=== PATIENT | male | born 1945 | race Caucasian/White ===

== ENCOUNTER 2023-08-23 09:00 | Emergency (ER) | payer MEDICARE, BC, SELFPAY ==
[2023-08-23 09:02] VITALS: BP 134/77
--- NOTE | 2023-08-23 09:24 | ED.GENMED ---
History of Present Illness
General
Chief Complaint: Musculo-Skeletal Complaint
Time Seen by Provider: 08/23/23 09:24
Travel History
Have you had any contact with someone who has COVID-19?: No
Do you have any symptoms of coronavirus? Fever > 100 degrees, chills, cough, shortness of breath, sore throat, loss of taste or smell, muscle aches, or headache?: No
History of Present Illness
History of Present Illness:
HPI: Patient presents with concerns for pain at the back of the left ankle. There was no trauma. He is very concerned because he had a severe infection a few years ago with similar initial presentation. He has had no fevers.
EXAM:
GENERAL: Well appearing in no distress
HEENT: Moist oral mucosa
CARDIOVASCULAR: No murmurs, normal heart rate, regular rhythm, No chest wall tenderness
PULMONARY: No respiratory distress, breath sounds are clear and equal
ABDOMEN: Soft with no peritoneal signs, no tenderness
NEUROLOGIC: Excellent strength all extremities, no coordination deficits
PSYCHIATRIC: Appropriate mental status, normal insight and judgement
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
SKIN: As above
TIME OF INITIAL ENCOUNTER: 9:30 AM
NUMBER AND COMPLEXITY OF PROBLEMS ADDRESSED AT THE ENCOUNTER
� Chronic conditions affecting care: CHF, CAD, high blood pressure, hyperlipidemia, brain tumor
� Acute Exacerbation and/or Progression of Chronic Illness:
� Differential Diagnosis includes: DVT, cellulitis, musculoskeletal ankle pain
AMOUNT AND/OR COMPLEXITY OF DATA TO BE REVIEWED AND ANALYZED
� I performed an independent evaluation of and my interpretation is:
EKG:
CT:
X-rays:
Laboratory Studies: White count 7.1, hemoglobin 16.0, creatinine 1.5
Other: Ultrasound imaging shows no evidence of DVT to the left lower extremity
� Review of other/old records: Last creatinine was 1.3
� Clinical information was obtained by an independent historian:
� Prescriptions/Medications Considered but not given:
� Further testing considered but not performed:
RISK OF COMPLICATIONS AND/OR MORBIDITY OR MORTALITY OF PATIENT MANAGEMENT
� Social determinants of health affecting care: Lives at home
� Discussion with other providers: None needed
� Escalation of care including admission/observation vs risk of discharge considered: Ultrasound imaging negative for DVT. I see no clear evidence for cellulitis and white count is normal. However he did have a concerning
infection in the past will place on antibiotics.
Past History
Past History
ED Past Medical History: CAD, CHF, GERD, HTN and Hypercholesterolemia
ED Past Surgical History: Orthopedic and Other (DEBI)
Social History
Tobacco: Non-smoker
Alcohol: None
Drug: None
Personal:
Living: with family
Employment: Employed
Phy Exam
Physical Exam
Physical Exam:
See HPI
Course
Orders/Labs/Results
Orders:
Orders
08/23/23 09:30
US Legs, Left [US Periph Venous LOWER Ext LT] Urgent
Comment:
Reason For Exam: swelling eval for dvt
08/23/23 10:24
Basic Metabolic Panel Urgent
Complete Blood Count/With Diff Urgent
08/23/23 11:27
Doxycycline [Vibramycin] 100 mg PO NOW STA
Abnormal Lab Results
08/23/23
10:24
MCV 97.4 H fL
(80.0-94.0)
MCH 31.4 H pg
(27.0-31.0)
MCHC 32.3 L g/dL
(33.0-37.0)
MPV 10.5 H fL
(7.4-10.4)
Absolute Lymphs (auto) 0.9 L 10^3/uL
(1.2-3.4)
Absolute Monos (auto) 0.7 H 10^3/uL
(0.1-0.6)
Lymphocytes % 13.2 L %
(20.5-51.1)
Monocytes % 9.6 H %
(1.7-9.3)
Carbon Dioxide 31 H mmol/L
(22-30)
BUN 30 H mg/dl
(9-20)
Creatinine 1.5 H mg/dL
(0.7-1.3)
08/23/23 10:24
08/23/23 10:24
Vital Signs
Initial and Last Documented VS:
Initial Vital Signs
Temp Pulse Resp BP Pulse Ox
97.8 F 60 20 134/77 98
08/23/23 09:02 08/23/23 09:02 08/23/23 09:02 08/23/23 09:02 08/23/23 09:02
Last Documented Vital Signs
Temp Pulse Resp BP Pulse Ox
97.8 F 60 20 134/77 98
08/23/23 09:02 08/23/23 09:02 08/23/23 09:02 08/23/23 09:02 08/23/23 09:02
*Critical Care Note
Total Time (30-74mins, 75-104mins- exclusive of procedures): Not Applicable
ED Attending Note
-
Portions of this chart may have been created with voice recognition software.� Occasional wrong word or��sound alike� substitutions may have occurred due to the inherent limitations of voice recognition software.
Discharge Plan
Departure
Patient Disposition: Home (Routine Discharge)
Date of Disposition: 08/23/23
Time of Disposition: 11:25
Patient with high blood pressure during this ER visit?: Yes
Discharge Problem:
Edema
Instructions: Swelling
Prescriptions:
New
doxycycline hyclate 100 mg capsule
100 mg PO BID 7 Days Qty: 14 0RF
No Action
furosemide 40 MG tablet
40 mg PO DAILY@1800
lisinopril 20 MG tablet
40 mg PO DAILY@1800
aspirin 81 MG tablet,delayed release (DR/EC)
81 mg PO DAILY@1800
carvedilol 3.125 MG tablet
3.125 mg PO BID
quinine sulfate 324 MG capsule
324 mg PO DAILY@1800
fish oil-dha-epa 1 EACH capsule
1 ea PO DAILY@1800
cholecalciferol (vitamin D3) 2,000 UNITS tablet
2,000 units PO DAILY@1800
esomeprazole magnesium [Nexium 24HR] 20 MG tablet,delayed release (DR/EC)
20 mg PO DAILY
vit C,U-Pa-lpkcl-lutein-zeaxan [PreserVision AREDS-2] 1 EACH capsule
2 ea PO DAILY@1800
oxycodone 5 MG tablet
15 mg PO .DAILY AT 2000
testosterone 30 MG/1.5 ML solution in metered pump w/oneil
1 applic topical DAILY
Patient Comments:
ON HOLD
L.acidoph, paracasei,B. lactis 1 EACH capsule
1 ea PO BID
calcium citrate 200 MG tablet
200 mg PO DAILY@1800
Patient Comments:
04/23/19 on hold while taking doxycyline/vanco
vancomycin 1,000 MG/20 ML recon soln
1,500 mg IV Q24H
Referrals:
Micah Bennett MD [Family Provider] -
Activity Restrictions/Additional Instructions:
Ultrasound shows no sign of DVT. White count is normal. Follow-up your primary care doctor as well as Dr. Hayes.
Interventions
Interventions:
*Risk Screen - Suicide Last Done: 08/23/23 10:21
*General Assessment Last Done: 08/23/23 10:21
*Neglect/Abuse Screening Last Done: 08/23/23 10:21
*ED COVID-19 Vaccine History Last Done: 08/23/23 09:05
ED-Musculoskeletal Assessment Last Done: 08/23/23 10:21
Discharge Date and Time
Print Language: GIBRALTARIAN
[2023-08-23 10:30] LABS: % Basophils 0.7 % (0-2); % Eosinophils 4.1 % (0-6); % Immature Granulocytes 0.3 % (0-0.5); % Lymphocytes 13.2 % (20.5-51.1); % Monocytes 9.6 % (1.7-9.3); % Neutrophils 72.1 % (42.2-75.2); Absolute Basophils 0.1 10^3/uL (0-0.2); Absolute Eosinophils 0.3 10^3/uL (0-0.7); Absolute Lymphocytes 0.9 10^3/uL (1.2-3.4); Absolute Monocytes 0.7 10^3/uL (0.1-0.6); Absolute Neutrophils 5.1 10^3/uL (1.4-6.5); Hematocrit 49.6 % (39.0-52.0); Mean Corp Hgb Conc. 32.3 g/dL (33.0-37.0); Mean Corpuscular Hgb 31.4 pg (27.0-31.0); Mean Corpuscular Volume 97.4 fL (80.0-94.0); Mean Platelet Volume 10.5 fL (7.4-10.4); Nucleated Red Blood Cells % 0 % (-); Platelet Count 191 10^3/uL (130-400); Red Blood Cell Count 5.09 10^6/uL (4.70-6.10); Red Cell Dist. Width 13.1 % (11.5-14.5); White Blood Cell Count 7.1 10^3/uL (4.8-10.8)
[2023-08-23 10:42] LABS: Blood Urea Nitrogen 30 mg/dl (9-20); Calcium 9.6 mg/dl (8.4-10.2); Carbon Dioxide 31 mmol/L (22-30); Chloride 100 mmol/L (98-107); Glucose 97 mg/dl (70-99); Potassium 5.1 mmol/L (3.5-5.1); Sodium 136 mmol/L (135-145); eGFR 47.06
[2023-08-23] MEDS: VIBRAMYCIN 100 MG PO (12:07)
[2023-08-23 12:08] VITALS: BP 133/69
== END 2023-08-23 12:16 | disposition home or self-care (01) ==
LOC: EMR 09:00
PROVIDERS: EMERGENCY PHYSICIAN Emergency Medicine; FAMILY PHYSICIAN Internal Medicine
DX: R60.0 Localized edema (principal); I11.0 Hypertensive heart disease with heart failure; I50.9 Heart failure, unspecified; E78.00 Pure hypercholesterolemia, unspecified
CPT/HCPCS: 99284; 80048; 85025; 93971

== ENCOUNTER → 2023-08-27 14:38 | Outpatient (REF) | payer MEDICARE, BC, SELFPAY | LOC: HWRAD 14:38 | PROVIDERS: ATTENDING PHYSICIAN Podiatrist Foot & Ankle Surgery; FAMILY PHYSICIAN Internal Medicine | DX: L97.523 Non-pressure chronic ulcer of other part of left foot with necrosis of muscle (principal) | CPT/HCPCS: 73630 ==

== ENCOUNTER → 2023-09-02 14:07 | Outpatient (REF) | payer MEDICARE, BC, SELFPAY | LOC: RAD 14:07 | PROVIDERS: ATTENDING PHYSICIAN Podiatrist Foot & Ankle Surgery; FAMILY PHYSICIAN Internal Medicine | DX: I89.0 Lymphedema, not elsewhere classified (principal); L97.523 Non-pressure chronic ulcer of other part of left foot with necrosis of muscle | CPT/HCPCS: 93922; 93925 ==

== ENCOUNTER 2023-10-08 18:27 | Inpatient (IN) | payer MEDICARE, BC, SELFPAY ==
[2023-10-08 15:26] VITALS: BP 126/66
--- NOTE | 2023-10-08 15:57 | ED.GENMED ---
History of Present Illness
General
Chief Complaint: Skin Problem
Source: patient
Exam Limitations: none
Time Seen by Provider: 10/08/23 15:47
History of Present Illness
History of Present Illness:
See MDM
Past History
Past History
ED Past Medical History: CAD, CHF, GERD, HTN and Hypercholesterolemia
ED Past Surgical History: Orthopedic and Other ([facility]BI)
Social History
Tobacco: Non-smoker
Alcohol: None
Drug: None
Personal:
Living: with family
Employment: Employed
Phy Exam
Physical Exam
Physical Exam:
See MDM
Course
Orders/Labs/Results
Orders:
Orders
10/08/23 15:56
Aztreonam [Azactam] 2,000 mg IV NOW STA
10/08/23 16:15
Complete Blood Count/With Diff Urgent
Comprehensive Metabolic Panel Urgent
Blood Culture Urgent
CARLY Source: Blood/Venous
Specimen Description:
10/08/23 16:43
Vancomycin [Vancocin] 2,000 mg 0.9% Sodium Chloride 500 ml [Nss] 500 ml IV NOW
Abnormal Lab Results
10/08/23
16:15
RBC 4.49 L 10^6/uL
(4.70-6.10)
Abs Immat Gran (auto) 0.1 H 10^3/uL
(0-0.05)
Absolute Neuts (auto) 6.6 H 10^3/uL
(1.4-6.5)
Absolute Monos (auto) 0.8 H 10^3/uL
(0.1-0.6)
Immature Gran % 0.7 H %
(0-0.5)
Lymphocytes % 12.7 L %
(20.5-51.1)
Sodium 133 L mmol/L
(135-145)
Carbon Dioxide 20 L mmol/L
(22-30)
BUN 45 H mg/dl
(9-20)
Creatinine 2.2 H mg/dL
(0.7-1.3)
10/08/23 16:15
10/08/23 16:15
Vital Signs
Initial and Last Documented VS:
Initial Vital Signs
Temp Pulse Resp BP Pulse Ox
98.3 F 68 20 126/66 66
10/08/23 15:26 10/08/23 15:26 10/08/23 15:26 10/08/23 15:26 10/08/23 15:26
Last Documented Vital Signs
Temp Pulse Resp BP Pulse Ox
98.3 F 68 20 126/66 66
10/08/23 15:26 10/08/23 15:26 10/08/23 15:26 10/08/23 15:26 10/08/23 15:26
MDM/Problems Addressed
Differential Diagnosis Includes:
HPI and MDM Narrative:
78-year-old male presenting with concern for osteolysis of his left foot. Due to chronic deformity of his foot, the medial aspect of his left MTP rubs against his shoes. He developed an ulcer and has been on Bactrim for 5 weeks. His hardboard supervisor
ordered an outpatient MRI. Patient was sent in because the MRI showed concern for osteomyelitis. He was sent in for IV antibiotics. He denies any pain. Given the concern of osteomyelitis and his penicillin allergy, will start vancomycin and
aztreonam
Physical exam
General: Well appearing and non-toxic
HEENT: protecting airway
Neck: appears supple
CV: No evidence of cyanosis
Resp: No accessory muscle use
Abd: Non-distended
Extremities: Ulceration to left medial MTP.
Neuro: alert
Psych: Normal affect
Skin: Intact
Problems Addressed including Acute and Chronic Conditions affecting care:
1. Left great toe osteomyelitis
Acuity: acute
Prognosis: unstable
Details: Given the MRI reading and the failure of outpatient antibiotics, will start vancomycin and aztreonam given his penicillin allergy
Differential Diagnosis (but not limited to): Ulceration, osteomyelitis, cellulitis
Testing considered: X-ray but patient states he already had an MRI
Drug therapy (if applicable): OTC meds, please see d/c instruction regarding Rx drugs
Amount and/or Complexity of Data Reviewed
Clinical info obtained from: Patient
External data reviewed: N/A
Labs I independently reviewed (but not limited to): WBC, Cr
Radiology: N/A
Pulse Ox: not hypoxic
EKG independently reviewed: N/A
Cabinet Builder: N/A
Critical Care: N/A
Risk of Complication:
Social Determinants of health: Good social support
Discussed with other providers: Hospitalist
Escalation of Care includes Admit/Obs: Given the concern for osteomyelitis and failing outpatient therapy, will admit for IV antibiotics
Occasional wrong word or 'sound a like' substitutions may have occurred due to the inherent limitations of voice recognition software. Read the chart carefully and recognize, using context, where substitutions have occurred.
*Critical Care Note
Total Time (30-74mins, 75-104mins- exclusive of procedures): Not Applicable
ED Attending Note
-
Portions of this chart may have been created with voice recognition software.� Occasional wrong word or��sound alike� substitutions may have occurred due to the inherent limitations of voice recognition software.
Discharge Plan
Departure
Patient Disposition: Admit
Date of Disposition: 10/08/23
Time of Disposition: 17:09
Admit to: Med/Surg
Presentation/result/management discussed w/ accepting MD/DO: Hospitalist
Discharge Problem:
Osteomyelitis
Prescriptions:
No Action
furosemide 40 MG tablet
20 mg PO QPM
lisinopril 20 MG tablet
40 mg PO QPM
aspirin 81 MG tablet,delayed release (DR/EC)
81 mg PO QPM
carvedilol 3.125 MG tablet
3.125 mg PO BID
quinine sulfate 324 MG capsule
324 mg PO QPM
fish oil-dha-epa 1 EACH capsule
1 ea PO QPM
esomeprazole magnesium [Nexium 24HR] 20 MG tablet,delayed release (DR/EC)
20 mg PO DAILY
PreserVision AREDS-2 1 EACH capsule
2 ea PO QPM
oxycodone 5 MG tablet
5 mg PO BIDPRN PRN (Reason: moderate pain)
Patient Comments:
10/08/2023: last filled 10/06/21, 90 tabs for 30 days from [facility]
testosterone 30 MG/1.5 ML solution in metered pump w/oneil
1 applic topical QPM
Patient Comments:
ON HOLD
L.acidoph, paracasei,B. lactis 1 EACH capsule
1 ea PO QPM
calcium citrate 200 MG tablet
200 mg PO QPM
Patient Comments:
sulfamethoxazole-trimethoprim 800-160 mg tablet
1 tab PO BID
spironolactone 25 mg tablet
12.5 mg PO QPM
cholecalciferol (vitamin D3) 50 mcg (2,000 unit) Tablet
50 mcg PO QPM
Jardiance 10 mg tablet
10 mg PO QPM
Referrals:
NONE,* [Family Provider] -
Interventions
Interventions:
*Risk Screen - Suicide Last Done: 10/08/23 15:26
*General Assessment Last Done: 10/08/23 15:26
*Neglect/Abuse Screening Last Done: 10/08/23 15:26
ED-Skin Assessment Last Done: 10/08/23 16:21
Discharge Date and Time
Print Language: KAZAKH
[2023-10-08] MEDS: AZACTAM 2000 MG IV (16:15)
[2023-10-08 16:19] VITALS: BMI 29.2
[2023-10-08 16:32] LABS: % Basophils 0.8 % (0-2); % Eosinophils 4.2 % (0-6); % Immature Granulocytes 0.7 % (0-0.5); % Lymphocytes 12.7 % (20.5-51.1); % Monocytes 8.8 % (1.7-9.3); % Neutrophils 72.8 % (42.2-75.2); Absolute Basophils 0.1 10^3/uL (0-0.2); Absolute Eosinophils 0.4 10^3/uL (0-0.7); Absolute Immature Granulocytes 0.1 10^3/uL (0-0.05); Absolute Lymphocytes 1.2 10^3/uL (1.2-3.4); Absolute Monocytes 0.8 10^3/uL (0.1-0.6); Absolute Neutrophils 6.6 10^3/uL (1.4-6.5); Hemoglobin 13.9 g/dL (13.0-18.0); Mean Corp Hgb Conc. 34.8 g/dL (33.0-37.0); Mean Corpuscular Volume 89.1 fL (80.0-94.0); Mean Platelet Volume 9.8 fL (7.4-10.4); Nucleated Red Blood Cells % 0 % (-); Platelet Count 282 10^3/uL (130-400); Red Blood Cell Count 4.49 10^6/uL (4.70-6.10); Red Cell Dist. Width 13.4 % (11.5-14.5); White Blood Cell Count 9.1 10^3/uL (4.8-10.8)
[2023-10-08 17:05] LABS: ALT (SGPT) 26 U/L (0-50); AST (SGOT) 29 U/L (17-59); Alkaline Phosphatase 99 U/L (38-126); Blood Urea Nitrogen 45 mg/dl (9-20); Calcium 9.7 mg/dl (8.4-10.2); Carbon Dioxide 20 mmol/L (22-30); Chloride 102 mmol/L (98-107); Estimated Creatinine Clearance 27 ml/min; Glucose 98 mg/dl (70-99); Sodium 133 mmol/L (135-145); Total Bilirubin 0.3 mg/dl (0.2-1.3); Total Protein 6.5 g/dl (6.3-8.2); eGFR 29.72
[2023-10-08] MEDS: VANCOCIN 540 MG IV (17:05)
[2023-10-08 17:13] LABS: Potassium 5.3 mmol/L (3.5-5.1)
--- NOTE | 2023-10-08 18:20 | HPS.HSE ---
Addendum entered and electronically signed by Joe Hernandez MD 10/08/23 20:34:
NPO past midnight for potential debridement tomorrow per podiatry.
Original Note:
Family Physician
-
Family Physician: Micah Bennett
Chief Complaint
-
left foot osteomyelitis
History of Present Illness
78-year-old male past medical history of coronary artery disease, CHF, hypertension, hyperlipidemia, GERD, presenting with osteomyelitis of left foot. Due to chronic deformity of his foot, the medial aspect of his left MTP rubs against shoe and he
developed an ulcer approximately 5 weeks ago and has been on Bactrim for 5 weeks. Also has been draining some liquid. He denies any fevers or chills. His reservations specialist ordered outpatient MRI which showed osteomyelitis and he was sent in for IV
antibiotics. He denies any pain.
Patient also had a injury when his left toe got caught in carpet resulting in injury of his foot. He was found to have complete tear of left Achilles tendon on recent MRI, and nonoperative management was recommended by podiatry due to osteomyelitis
and vascular insufficiency.
He was told 7 years ago that he had vascular insufficiency in his left lower extremity.
He drinks 1 drink of alcohol daily. He denies smoking.
Medical History
Past Medical History
Past Medical History: Reports Other (coronary artery disease, CHF, hypertension, hyperlipidemia, GERD)
Past Surgical History: Reports Orthopedic
Social History
Tobacco: Non-smoker
Alcohol: Daily
Drug: None
Family History
Family History: Not pertinent
Allergies / Home Medications
Allergies reflects when Allergies were last updated in [facility].
Home Medications with original date entered in [facility]
Allergy/Medication List:
Allergies
Allergy/AdvReac Type Severity Reaction Status Date / Time
morphine Allergy Unknown Verified 10/08/23 15:30
Penicillins Allergy Hives Verified 10/08/23 15:30
medicated honey Allergy Rash Uncoded 10/08/23 15:30
Home Medications
aspirin 81 mg tablet,delayed release 81 mg PO QPM Blood clot prevention/tx 04/18/19
carvedilol 3.125 mg tablet 3.125 mg PO BID Heart disease 04/18/19
esomeprazole magnesium 20 mg tablet,delayed release (Nexium 24HR) 20 mg PO DAILY Gastrointestinal issue 04/18/19
fish oil-dha-epa 1,200 mg-144 mg-216 mg capsule 1 ea PO QPM Supplement 04/18/19
furosemide 40 mg tablet 20 mg PO QPM Fluid retention/Swelling 04/18/19
lisinopril 20 mg tablet 40 mg PO QPM Heart disease 04/18/19
quinine sulfate 324 mg capsule 324 mg PO QPM cramps 04/18/19
vit C 250 mg-vit E 90 mg-zinc 40 mg-copper 1 zx-zkfsly-eggurc capsule (PreserVision AREDS-2) 2 ea PO QPM Supplement 04/18/19
L.acidoph, paracasei,B. lactis 10 billion cell capsule 1 ea PO QPM Gastrointestinal issue 04/23/19
calcium citrate 200 mg (950 mg) tablet 200 mg PO QPM Supplement 04/23/19
oxycodone 5 mg tablet 5 mg PO BIDPRN PRN moderate pain 04/23/19
testosterone 30 mg/actuation (1.5 mL) transderm solution metered pump 1 applic topical QPM hormone replacement 04/23/19
cholecalciferol (vitamin D3) 50 mcg (2,000 unit) tablet 50 mcg PO QPM 10/08/23
empagliflozin 10 mg tablet (Jardiance) 10 mg PO QPM 10/08/23
spironolactone 25 mg tablet 12.5 mg PO QPM 10/08/23
sulfamethoxazole 800 mg-trimethoprim 160 mg tablet 1 tab PO BID 10/08/23
Review of Systems
-
History Source: Patient
A 12 point ROS was completed and negative except as noted: Yes
Constitutional: Reports No Symptoms
EENT: Reports No Symptoms
Respiratory: Reports No Symptoms
Cardiac: Reports No Symptoms
Abdomen/GI: Reports No Symptoms
: Reports No Symptoms
Musculoskeletal: Reports See HPI
Skin: Reports No Symptoms
Neurological: Reports No Symptoms
Endocrine: Reports No Symptoms
Hematologic/Lymphatic: Reports No Symptoms
Psych: Reports No Symptoms
Physical Exam
Vital Signs
Vital Signs
Temp Pulse Resp BP Pulse Ox
98.3 F 68 20 126/66 66
10/08/23 15:26 10/08/23 15:26 10/08/23 15:26 10/08/23 15:26 10/08/23 15:26
Physical Exam
General: Well Developed, Well Nourished and No Apparent Distress
HEENT: NormoCephalic, Moist mucous membranes and Atraumatic
Respiratory: Clear
Cardiac: S1/S2 and Regular Rhythm; No Murmur or Rub
GI: Soft, Non Tender, Non Distended and Normal Bowel Sounds; No Organomegaly
Rectal: Deferred by Provider
Musculoskeletal: No Clubbing, No Cyanosis and No Edema
Skin: Other (left first MTP varus deformity with ulcer ); No Rash
Neuro: Nonfocal/grossly intact
Laboratory Results
-
10/08/23 16:15
10/08/23 16:15
Laboratory Results
Total Bilirubin 0.3 mg/dl (0.2-1.3) 10/08/23 16:15
AST 29 U/L (17-59) 10/08/23 16:15
ALT 26 U/L (0-50) 10/08/23 16:15
Alkaline Phosphatase 99 U/L (38-126) 10/08/23 16:15
Data Reviewed
-
Lab Data: Labs Reviewed by me
Old Records: Reviewed
Impression/Plan
-
IMPRESSION:
PLAN:
# Left MTP ulcer/osteomyelitis
# Developmental varus deformity
-Vancomycin/cefepime
-Podiatry consulted
-ID consulted
-wound care
# Peripheral arterial disease of left lower extremity
-Recent arterial ultrasound shows decrease in toe brachial index to 0.59 from 1.07 previously
-Vascular consulted
# Near complete tear of left Achilles tendon
- recent MRI showed near complete tear of left Achilles tendon, somewhat extensive atrophy of the imaged left calf musculature and left ankle intrinsic musculature likely reflecting diabetes or peripheral vascular disease, subtalar joint effusion
extending into the sinus tarsi, tenosynovitis of the distal peroneus longus
# ODALYS on CKD/hyperkalemia exacerbated by Bactrim
-Hold Bactrim
-Hold lisinopril, Lasix, spironolactone
Coronary artery disease
-Continue aspirin
History of heart failure
-Continue Coreg
-Continue empagliflozin
-Hold Lasix, spironolactone, lisinopril until renal function improves
Essential hypertension
Hyperlipidemia
GERD
-Continues omeprazole
Arthritis
-Continue oxycodone as needed
Full code
DVT prophylaxis�heparin
Regular diet
--- NOTE | 2023-10-08 20:15 | PHA.VAN.IN ---
Assessment
- Assessment
Renal Function: Appears elevated from baseline (05/04/19 BASELINE SCR: 1.3)
Concomitant Antimicrobials: CEFEPIME
- Previous Dosing Experience
Previous Regimen: DOSING BY RANDOM
Date of Regimen: 04/29/19
Provided Trough of: UNKNOWN
Provided AUC of: UNKNOWN
Patient's SCR is: Similar to previous dosing experience
Patient's weight is: Similar to previous dosing experience
Plan
- Plan
Initial / Loading Dose: 2GM
Maintenance Regimen: DOSING BY RANDOM LEVELS
Monitoring: RANDOM VANCOMYCIN LEVEL 10/09/23 AM
Pharmacokinetics Vancomycin I
- -
Patient Age: 78
Patient Sex: Male
Vancomycin Day #: 1
Indication: [facility] ([facility])
Requesting Provider: CHAVEZ
Pertinent Antimicrobial Allergies:
Allergies
Penicillins Allergy (Verified 10/08/23 15:30)
Hives
Height / Weight:
Height 5 ft 9 in
Actual Weight 89.5 kg
- Vital Signs / Lab Results
Temp Pulse Resp BP Pulse Ox
98.3 F 68 20 126/66 66
10/08/23 15:26 10/08/23 15:26 10/08/23 15:26 10/08/23 15:26 10/08/23 15:26
Lab Results - Hematology
10/08/23
16:15
WBC 9.1
Lab Results - Chemistry
10/08/23
16:15
BUN 45 H
Creatinine 2.2 H
Estimated Creat Clear 27
Albumin 4.0
[2023-10-08 20:57] VITALS: BMI 29.2
[2023-10-08] MEDS: HEPARIN 5000 UNITS SC (21:44)
[2023-10-08] MEDS: COREG 3.125 MG PO (21:52)
[2023-10-08 23:33] VITALS: BP 117/69
[2023-10-09] VITALS (12 sets, daily range): BP systolic 105–116; BP diastolic 56–71; BMI 29.1
[2023-10-09] MEDS: MAXIPIME 1000 MG IV ×2 (00:36→23:11)
[2023-10-09] MEDS: STERILE WATER FOR INJECTION 10 ML IV ×2 (00:37→23:11)
--- NOTE | 2023-10-09 00:57 | PTCARENOTE ---
Pt admitted to the unit from the ED. Pt ambulated self to bed with pt's own single point cane. [id number]. Pt denies pain. ED RN called to report 'Vanco administered in the ED. Vanco was almost completely administered when pt reported a rash above the IV
site. Vanco was stopped, IV site flushed, and provider notified.' This RN assessed the IV site above. No rash on assessment. Plan of care ongoing.
--- NOTE | 2023-10-09 03:25 | DOWNTIME ---
There was a [employer]isher Downtime on 10/09/2023 from 0100 to 10/09/2023 at 0255. Downtime documentation of patient's care, including medication administrations, has been reconciled in the electronic record per guidelines. Refer to the
patient's paper chart under the miscellaneous tab to see printed paper medication records and downtime forms.
[2023-10-09 07:44] LABS: Vancomycin Random 12.7 ug/ml
[2023-10-09 07:56] LABS: ALT (SGPT) 24 U/L (0-50); AST (SGOT) 26 U/L (17-59); Albumin 3.5 g/dl (3.5-5.0); Alkaline Phosphatase 96 U/L (38-126); Blood Urea Nitrogen 37 mg/dl (9-20); Calcium 9.8 mg/dl (8.4-10.2); Carbon Dioxide 23 mmol/L (22-30); Chloride 103 mmol/L (98-107); Estimated Creatinine Clearance 32 ml/min; Glucose 91 mg/dl (70-99); Potassium 5.5 mmol/L (3.5-5.1); Sodium 134 mmol/L (135-145); Total Bilirubin 0.6 mg/dl (0.2-1.3); Total Protein 5.9 g/dl (6.3-8.2); eGFR 35.44
[2023-10-09 08:01] LABS: % Basophils 0.9 % (0-2); % Eosinophils 5.9 % (0-6); % Immature Granulocytes 0.8 % (0-0.5); % Lymphocytes 17.9 % (20.5-51.1); % Monocytes 10.8 % (1.7-9.3); % Neutrophils 63.7 % (42.2-75.2); Absolute Basophils 0.1 10^3/uL (0-0.2); Absolute Eosinophils 0.4 10^3/uL (0-0.7); Absolute Immature Granulocytes 0.1 10^3/uL (0-0.05); Absolute Lymphocytes 1.2 10^3/uL (1.2-3.4); Absolute Monocytes 0.7 10^3/uL (0.1-0.6); Absolute Neutrophils 4.1 10^3/uL (1.4-6.5); Hematocrit 40.4 % (39.0-52.0); Hemoglobin 13.5 g/dL (13.0-18.0); Mean Corp Hgb Conc. 33.4 g/dL (33.0-37.0); Mean Corpuscular Hgb 30.5 pg (27.0-31.0); Mean Corpuscular Volume 91.2 fL (80.0-94.0); Nucleated Red Blood Cells % 0 % (-); Platelet Count 249 10^3/uL (130-400); Red Blood Cell Count 4.43 10^6/uL (4.70-6.10); Red Cell Dist. Width 13.6 % (11.5-14.5); White Blood Cell Count 6.5 10^3/uL (4.8-10.8)
--- NOTE | 2023-10-09 08:07 | W.CS.POD ---
Consult Summary - Podiatry
-
Patient known to me for outpatient care- developed a wound left 1st met that extended to bone and has been non healing. MRI confirmed osteomyelitis. He was admitted for evaluation and management of infection and has agreed to proceed with surgical
resection of infected bone today.
A/P-
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 NPO since MN and sq hep dose held this am
2-PAD: studies indicate mutiphasic flow other than the great toe with decreased CHITRA and monohasic waveform, will consult Dr Carvalho/Grayson to see and evaluate for healing potential left foot
Full consult to follow
--- NOTE | 2023-10-09 08:10 | CON.VAS ---
Addendum entered and electronically signed by Ji Carvalho III, MD 10/09/23 12:45:
This patient was seen and examined with JEEVAN Nevarez. I agree with the history and physical exam as well as the assessment and plan. I have the following additions:
Chronic left foot deformity
Now with tissue breakdown and ulceration over the medial aspect of the first metatarsal head
Started in August
Osteomyelitis confirmed on outside imaging
Has been receiving vancomycin
Now admitted with plans for podiatric surgical intervention
On physical exam he is well-appearing, nontoxic and in no acute distress
Nonlabored breathing
Palpable dorsalis pedis pulse in the left foot
Pitting edema of the left ankle
Nonpalpable posterior tibial pulse, left foot
Foot is pink and warm
Obvious ulcer present over the first metatarsal head medially
Chronic foot deformity
I personally reviewed his lower extremity arterial studies. His ABIs within normal limits however there is a mildly reduced TBI. The toe pressure on the left is 74 mmHg. Arterial duplex examination reveals multiphasic waveforms from the common
femoral artery through the popliteal artery with no focal velocity elevations to suggest significant stenosis..
He has several risk factors for arterial occlusive disease. According to the duplex there is no evidence of significant stenosis from the common femoral artery through the popliteal artery. He has normal ABIs on the left, a palpable DP pulse and a
left toe pressure that is likely predicts adequate wound healing (74 mmHg). He may benefit from a diagnostic arteriogram to confirm adequate perfusion to the toe however he has acute kidney injury with a creatinine yesterday of 2.2 (1.9 today). I
would like nephrology to evaluate the patient. Will follow kidney function trend and discuss with Dr. Hayes regarding options for arteriogram prior to surgery on left foot or move ahead without and monitor wound healing closely.
Signed:
Ji Carvalho III, MD
[facility]
[phone] (wenk)
Original Note:
Consultation
Consultation Request
Date/Time Consultation Performed: 10/09/2023 0800
Requesting Provider: Hospitalist
Performing Provider: Alyce Arriaza, BRANCH ADMINISTRATOR-C for Ji Carvalho III, MD
Reason for Consultation: Left foot nonhealing wound concern for PAD
Medical History
-
Chief Complaint: Left foot osteomyelitis
History of Present Illness:
This is a 78-year-old male with significant past medical history of CAD, CHF, GERD, hypertension, hyperlipidemia, and lymphedema who presents to [facility] ED on 10/08/2023 at recommendation of his wildlife policy professional Dr. Adamson for confirmed osteomyelitis at
left foot first metatarsal. Patient endorses that he has experienced on and off various wounds at left lower extremity due to his defect deformity, however most recent wound has been ongoing for roughly 5 weeks without signs of healing. He
endorses he began experiencing purulent drainage roughly a week ago prompting wildlife policy professional to obtain MRI which confirmed osteomyelitis and he was instructed to present to ED for eventual debridement. Denies nausea, vomiting, fever, chills, shortness
of breath, and chest pain. Outpatient arterial ultrasound with CHITRA/TBI obtained on 09/01 demonstrated decreased at left TBI from 1.09-0.59, within normal limit CHITRA.
Past Medical History
Past Medical History: CAD, CHF, GERD, HTN and Other (Hyperlipidemia, lymphedema)
Past Surgical History: Orthopedic (Total knee replacement)
Social History
Tobacco: Non-Smoker
Alcohol: Daily
Drug: None
Allergies / Home Medications
Allergy/AdvReac Type Severity Reaction Status Date / Time
morphine Allergy Unknown Verified 10/08/23 15:30
Penicillins Allergy Hives Verified 10/08/23 15:30
medicated honey Allergy Rash Uncoded 10/08/23 15:30
�Medication �Instructions �Recorded �Confirmed �Type
aspirin 81 mg tablet,delayed 81 mg PO QPM Blood clot 04/18/19 10/08/23 History
release prevention/tx
carvedilol 3.125 mg tablet 3.125 mg PO BID Heart disease 04/18/19 10/08/23 History
esomeprazole magnesium 20 mg 20 mg PO DAILY Gastrointestinal 04/18/19 10/08/23 History
tablet,delayed release (Nexium issue
24HR)
fish oil-dha-epa 1,200 mg-144 1 ea PO QPM Supplement 04/18/19 10/08/23 History
mg-216 mg capsule
furosemide 40 mg tablet 20 mg PO QPM Fluid 04/18/19 10/08/23 History
retention/Swelling
lisinopril 20 mg tablet 40 mg PO QPM Heart disease 04/18/19 10/08/23 History
quinine sulfate 324 mg capsule 324 mg PO QPM cramps 04/18/19 10/08/23 History
vit C 250 mg-vit E 90 mg-zinc 40 2 ea PO QPM Supplement 04/18/19 10/08/23 History
mg-copper 1 [id number]
capsule (PreserVision AREDS-2)
L.acidoph, paracasei,B. lactis 10 1 ea PO QPM Gastrointestinal issue 04/23/19 10/08/23 History
billion cell capsule
calcium citrate 200 mg (950 mg) 200 mg PO QPM Supplement 04/23/19 10/08/23 History
tablet
oxycodone 5 mg tablet 5 mg PO BIDPRN PRN moderate pain 04/23/19 10/08/23 History
testosterone 30 mg/actuation (1.5 1 applic topical QPM hormone 04/23/19 10/08/23 History
mL) transderm solution metered pump replacement
cholecalciferol (vitamin D3) 50 50 mcg PO QPM 10/08/23 10/08/23 History
mcg (2,000 unit) tablet
empagliflozin 10 mg tablet 10 mg PO QPM 10/08/23 10/08/23 History
(Jardiance)
spironolactone 25 mg tablet 12.5 mg PO QPM 10/08/23 10/08/23 History
sulfamethoxazole 800 1 tab PO BID 10/08/23 10/08/23 History
mg-trimethoprim 160 mg tablet
Review of Systems
-
History Source: Patient
Constitutional: Reports No Symptoms
EENT: Reports No Symptoms
Respiratory: Reports No Symptoms
Cardiac: Reports No Symptoms
Vascular: Denies Leg Pain / Claudication
Abdomen/GI: Reports No Symptoms
: Reports No Symptoms
Musculoskeletal: Reports Other (Left foot deformity from )
Skin: Reports Other (Left hallux wound for roughly 5 weeks with exposure of bone and drainage)
Neurological: Reports Other
Endocrine: Reports Other
Physical Exam
Vital Signs
Temp Pulse Resp BP Pulse Ox
98.2 F 60 18 116/67 96
10/09/23 08:09 10/09/23 08:09 10/09/23 08:09 10/09/23 08:09 10/09/23 08:09
Lab Results
10/09/23 06:32
10/09/23 06:32
Physical Exam
General: No Apparent Distress and Comfortable
HEENT: Normocephalic, Anicteric and Atraumatic
Respiratory: Non Labored Respirations
Cardiac: Negative JVD
GI: Soft, Non Tender and Non Distended
Musculoskeletal: Edema (Left lower extremity with +2 pitting edema)
Skin: Other (Left foot hallux wound with exposure of bone and drainage, nonpurulent and no malodor)
Neuro: AO x 3
Pulses: Left Dorsalis Pedis: +2 and Left Posterior Tibial: Doppler (Left PT nonpalpable)
Assessment / Plan
-
Assessment: 78-year-old male admitted for management of left first metatarsal osteomyelitis, concern for arterial disease given decreased TBI at left foot on noninvasive imaging.
Plan:
Would favor progressing with left lower extremity arteriogram for optimized diagnostic purposes and possible endovascular intervention if peripheral arterial disease is noted. However, patient with creatinine of 2.2 yesterday during ED evaluation,
unclear if he has a history of chronic kidney disease. Would recommend consultation to nephrology for management of likely acute kidney injury, can proceed as early as Saturday with arteriogram if renal function improves.
Continue wound care
Continue IV antibiotics
I performed this shared service with the attending. I evaluated the patient [id number] and have entered clinical documentation as shown in the encounter note. I performed the following component(s): history and physical exam. Note that medical
decision making is not final until attested by vascular attending.
--- NOTE | 2023-10-09 08:27 | PHA.VAN.FU ---
Vancomycin Assessment / Plan
- Assessment
Renal Function: SCR Decreasing
WBC's are: WNL
In the past 24 hrs, patient has been: Afebrile
Concomitant Antimicrobials: cefepime
- Assessment - Therapeutic Drug Monitoring
Random Level: 12.7 - drawn ~13.5H after 2g loading dose
- Dosing Plan
Dosing by Level: Re-dose today (Vanc 1250mg)
- Monitoring Plan
Random Level: 10/09 0600
- Follow Up
Pharmacy will continue to follow.
Vancomycin Follow UP
- -
Patient Age: 78
Patient Sex: Male
Vancomycin Day #: 2
Indication: Bone And Joint
Requesting Provider: Dr. Hernandez
Pertinent Antimicrobial Allergies:
Penicillins - Hives
Height / Weight:
Height 5 ft 9 in
Actual Weight 89.414 kg
Pertinent Past Medical History: PAD, CKD
- Vital Signs / Lab Results
Temp Pulse Resp BP Pulse Ox
98.2 F 60 18 116/67 96
10/09/23 08:09 10/09/23 08:09 10/09/23 08:09 10/09/23 08:09 10/09/23 08:09
Lab Results - Hematology
10/08/23 10/09/23
16:15 06:32
WBC 9.1 6.5
Lab Results - Chemistry
10/08/23 10/09/23
16:15 06:32
BUN 45 H 37 H
Creatinine 2.2 H 1.9 H
Estimated Creat Clear 27 32
Albumin 4.0 3.5
Therapeutic Drug Monitoring
Random Vancomycin 12.7 ug/ml 10/09/23 06:32
[2023-10-09] MEDS: HEPARIN SC (08:37)
--- NOTE | 2023-10-09 08:49 | W.PN.HOSP.TC ---
Today's Communication/Plan
-
OR today for debridement of bone left foot
Assessment / Plan
Assessment / Plan
HPI: 78-year-old male past medical history of coronary artery disease, CHF, hypertension, hyperlipidemia, GERD, presenting with osteomyelitis of left foot. Due to chronic deformity of his foot, the medial aspect of his left MTP rubs against shoe
and he developed an ulcer approximately 5 weeks ago and has been on Bactrim for 5 weeks. Also has been draining some liquid. He denies any fevers or chills. His lead process engineer ordered outpatient MRI which showed osteomyelitis and he was sent in for
IV antibiotics. He denies any pain.
Patient also had a injury when his left toe got caught in carpet resulting in injury of his foot. He was found to have complete tear of left Achilles tendon on recent MRI, and nonoperative management was recommended by podiatry due to osteomyelitis
and vascular insufficiency.
# Left MTP ulcer/osteomyelitis
# Developmental varus deformity
Appreciate podiatry input, for OR today for debridement of bone left foot
Appreciate ID input, treat with vancomycin/cefepime/Flagyl. Obtain bone cultures in the ER
Wound care, PT/OT post-op
# Peripheral arterial disease of left lower extremity
Recent arterial ultrasound shows decrease in toe brachial index to 0.59 from 1.07 previously
Appreciate vascular surgery input, likely would need left lower extremity arteriogram
Per nephro: may undergo angiogram on Saturday if creatinine returns to baseline
Continue aspirin, add statin
# Near complete tear of left Achilles tendon
Recent MRI showed near complete tear of left Achilles tendon, somewhat extensive atrophy of the imaged left calf musculature and left ankle intrinsic musculature likely reflecting diabetes or peripheral vascular disease, subtalar joint effusion
extending into the sinus tarsi, tenosynovitis of the distal peroneus longus
# ODALYS on CKD
# Hyperkalemia exacerbated by Bactrim
Appreciate nephrology input, continue holding Bactrim, lisinopril, Lasix, spironolactone
Give Lokelma, low potassium diet after OR
Follow-up urine studies, monitor creatinine
Coronary artery disease
-Continue aspirin, add statin
History of heart failure
-Continue Coreg
-Continue empagliflozin
-Hold Lasix, spironolactone, lisinopril until renal function improves
Essential hypertension
Hyperlipidemia
GERD
-Continues omeprazole
Arthritis
-Continue oxycodone as needed
DVT prophylaxis�subcu heparin
Full code
Total time spent to see the patient on the floor, examine the patient, review data and lab results, discuss treatment plan with patient, nursing staff around 55 minutes.
Physical Exam
General: No acute distress
HEENT: Normocephalic, Atraumatic, EOMI, MMM
Respiratory: Clear to Auscultation bilaterally
Cardiac: Normal S1/S2, Regular Rate and Rhythm
GI: Soft, Nontender, Nondistended, Normal Bowel Sounds
Extremities: No Clubbing, Cyanosis, or Edema
Musculoskeletal: Left foot dressed
Neuro: Nonfocal/Grossly Intact
Psych: Calm, Cooperative
Anticipated Discharge: > 48 hours
Subjective/Interval History
-
Date of Service: October 09, 2023
Patient complains of back pain. He does not have sensation in his feet. No fever, no vomiting.
Objective Data
-
Labs:
Laboratory Results
10/09/23
06:32
WBC 6.5
Hgb 13.5
Hct 40.4
Plt Count 249
Sodium 134 L
Potassium 5.5 H
Chloride 103
Carbon Dioxide 23
BUN 37 H
Creatinine 1.9 H
Glucose 91
Calcium 9.8
Total Bilirubin 0.6
AST 26
ALT 24
Alkaline Phosphatase 96
Vital Signs:
Vital Signs
Temp Pulse Resp BP Pulse Ox
98.2 F 60 18 116/67 96
10/09/23 08:09 10/09/23 08:09 10/09/23 08:09 10/09/23 08:09 10/09/23 08:09
I&O
10/08/23 10/09/23 10/10/23
06:59 06:59 06:59
Intake Total 420 / 420
Output Total 1050 / 1050
Balance -630 / -630
[2023-10-09] MEDS: PROTONIX 40 MG PO (08:50)
[2023-10-09] MEDS: COREG 3.125 MG PO ×2 (08:50→20:10)
--- NOTE | 2023-10-09 08:52 | WOUNDNOTE ---
L FOOT (MEDIAL 1ST MTH)
--- NOTE | 2023-10-09 08:52 | WOUNDNOTE ---
L FOREFOOT (MEDIAL 1ST MTH)
--- NOTE | 2023-10-09 08:54 | WOUNDNOTE ---
[facility] RN note: Patient admitted with L 1st MTH osteomyelitis. Surgery planned today by Dr. Hayes. Vascular was in to see patient this am as per patient. Patient lives with his .
See H&P for complete history.
PMH: CAD, CHF, chronic L foot deformity, L MTP foot ulcer x 5 weeks, outpatient MRI-OM, L Achilles tear (non operative), venous insufficiency, he wears L knee high Tubigrip and R knee high compression stocking, drinks 1 alcohol drink per day, CKD,
laminectomy, L hip replacement, L knee replacement, DJD.
Wound Location and type/assessment: Patient admitted with: full thickness L foot 1st MTH diabetic ulcer with yellow/white tissue close to or to the bone with local erythema, small yellow drainage. R lateral upper seth with 1.5-2cm red bruise.
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 Trace LE edema. +Palpable pedal pulses (R>L). Recent arterial ultrasound L toe pressure .59 previous 1.07. Vascular following.
Appetite: NPO for surgery otherwise he has a good appetite.
Pressure redistribution devices in place: [employer] Accumax. Patient ambulates and moves self in bed. He has a flat Darco surgical shoe for L foot and wears a loafer type shoe on R.
Plan: Dressing changed on L foot. Protective silicone border foam applied to R seth bruise under compression stocking. Patient confirmed he removes his compression stocking at bedtime. Instructed patient heel relief measure while in bed. Podiatry
managing L foot wound. Discussed with KIMBERLI Rodriguez.
Care plan to be updated and will follow peripherally as needed.
Note to case management requested for discharge: Patient interested in short term VN when discharged.
--- NOTE | 2023-10-09 08:55 | WOUNDNOTE ---
[facility] RN note: Patient admitted with L 1st MTH osteomyelitis. Surgery planned today by Dr. Hayes. Vascular was in to see patient this am as per patient. Patient lives with his .
See H&P for complete history.
PMH: CAD, CHF, chronic L foot deformity, L MTP foot ulcer x 5 weeks, outpatient MRI-OM, L Achilles tear (non operative), venous insufficiency, he wears L knee high Tubigrip and R knee high compression stocking, drinks 1 alcohol drink per day, CKD,
laminectomy, L hip replacement, L knee replacement, DJD.
Wound Location and type/assessment: Patient admitted with: full thickness L foot 1st MTH neuropathic ulcer with yellow/white tissue close to or to the bone with local erythema, small yellow drainage. R lateral upper seth with 1.5-2cm red bruise.
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 Trace LE edema. +Palpable pedal pulses (R>L). Recent arterial ultrasound L toe pressure .59 previous 1.07. Vascular following.
Appetite: NPO for surgery otherwise he has a good appetite.
Pressure redistribution devices in place: [employer] Accumax. Patient ambulates and moves self in bed. He has a flat Darco surgical shoe for L foot and wears a loafer type shoe on R.
Plan: Dressing changed on L foot. Protective silicone border foam applied to R seth bruise under compression stocking. Patient confirmed he removes his compression stocking at bedtime. Instructed patient heel relief measure while in bed. Podiatry
managing L foot wound. Discussed with KMIBERLI Rodriguez.
Care plan to be updated and will follow peripherally as needed.
Note to case management requested for discharge: Patient interested in short term VN when discharged.
[2023-10-09] MEDS: LOKELMA 10 GRAM PO ×2 (09:04→20:19)
--- NOTE | 2023-10-09 10:28 | CON.ID ---
Consultation
-
Date/Time Consultation Requested: 10/08/23 22:13
Date/Time Consultation Performed: 10/08/23 10:28
Requesting Provider: Dr Hernandez
Performing Provider: Dr Wallace
Reason for Consultation: osteo
Chief Complaint / Past History
Chief Complaint
left foot osteomyelitis
History of Present Illness
Mr Corcoran is a 78 year old male with history of CAD/PAD, CHF, lisfrank deformity of the L midfoot sent in for a nonhealing wound of the L foot MTP joint x5 weeks. The wound began with rubbing against his shoe which then developed the ulcer. He
was initially started empirically on doxycycline for several days, a culture was obtained and he has been on bactrim since then without significant healing of the wound. There has been some drainage. No fevers or chills. MRI outpatient with
evidence of osteomyelitis and he was referred here by his anglesmith helper for resection of the affected bone. Nonsmoker.
Of note also with stubbing left toe in carpet with complete tear fo the L Achilles which is being managed nonoperatively.
Since arrival here he has been afebrile, bp stable, wbc initially 9.1 now 6.5, hgb 13.5, plt 249, no L shift, eos are present, cr baseline ~1.5 and now 1.9, t bili 0.6, ast 26 , alt 24, alk pohs 96, 6/10 CHITRA: no focal stenoses. 08/26 XRay of the L
foot: soft tissue ulcerate medial plantar forefoot - no evidence of osteomyelitis. A single blood culture has been sent and a mrsa screen from the nose. Patient is currently on vanc, cefepime. Home quinine
Past History
Additional Past Medical History:
hypertension, hyperlipidemia, GERD
Additional Past Surgical History:
orthopedic - 10 surgeries
Allergy History:
honey [From [employer] (honey)] Allergy (Verified 10/09/23 08:28)
Rash
morphine Allergy (Verified 10/08/23 15:30)
Unknown
Penicillins Allergy (Verified 10/08/23 15:30)
Hives
Medications Reviewed: Yes
Social History
Tobacco: Non-Smoker
Alcohol: Daily (1 drink)
Drug: None
Family History
Family History: Not Pertinent
Review of Systems
Review of Systems
General: Negative Fever or Chills
All systems: All other systems were reviewed and were negative
Vital Signs
Temp Pulse Resp BP Pulse Ox
98.2 F 60 18 116/67 96
10/09/23 08:09 10/09/23 08:09 10/09/23 08:09 10/09/23 08:09 10/09/23 08:09
Physical Exam
Physical Exam
Constitutional: No Acute Distress
Cardiovascular: Regular Rate and S1/S2; Negative Murmur or Rub
Pulmonary: Clear and Symmetric; Negative Wheezes, Rales or Rhonchi
Gastrointestinal: Soft, Non Tender, Non Distended and Normal Bowel Sounds
Skin: Warm and Dry; Negative Rash or Jaundice
Wound: Other (left MTP joint with active probe to bone, no surrounding erythema, warmth, tenderness or drainage)
Lab / Diagnostic Study Results
10/09/23 06:32
10/09/23 06:32
Abs Immat Gran (auto) 0.1 10^3/uL (0-0.05) H 10/09/23 06:32
Absolute Neuts (auto) 4.1 10^3/uL (1.4-6.5) 10/09/23 06:32
Absolute Lymphs (auto) 1.2 10^3/uL (1.2-3.4) 10/09/23 06:32
Absolute Monos (auto) 0.7 10^3/uL (0.1-0.6) H 10/09/23 06:32
Absolute Basos (auto) 0.1 10^3/uL (0-0.2) 10/09/23 06:32
Immature Gran % 0.8 % (0-0.5) H 10/09/23 06:32
Neutrophils % 63.7 % (42.2-75.2) 10/09/23 06:32
Lymphocytes % 17.9 % (20.5-51.1) L 10/09/23 06:32
Monocytes % 10.8 % (1.7-9.3) H 10/09/23 06:32
Eosinophils % 5.9 % (0-6) 10/09/23 06:32
Basophils % 0.9 % (0-2) 10/09/23 06:32
Microbiology Results
Micro:
10/08/23 21:24 MRSA Screen - Pending
Nose
10/08/23 16:15 Blood Culture - Pending
Blood/Venous
Assessment / Plan
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
Lisfrank deformity
ODALYS on CKD
- obtain MRI report to clarify extent of suspected osteomyelitis - from [facility]
- CHITRA - no focal stenoses
- obtain a1c
- nonsmoker
- may have a surgical cure with resection; would like to see aerobic/anaerobic culture from the margin if possible as well as pathology
- if all suspected affected bone
- continue vancomycin, cefepime for the moment
- add metronidazole 500 TID starting this evening (post operatively) to maximize culture results
- follow clinically
Note Patient is on Quinine qpm outpatient - it would generally not be a recommended therapy for nocturnal leg cramps. I have encouraged patient to follow up with his PCP re: RLS for alternative management. Note it can cause AIN, renal insufficiency
Care Review
Plan reviewed with: Physician (Dr Mariana snider)
--- NOTE | 2023-10-09 11:26 | W.CON.NEPH ---
Consultation
-
Date/Time Consultation Requested: October 09, 2023 9 AM
Date/Time Consultation Performed: October 09, 2023 11 AM
Requesting Provider:
Performing Provider: Dr. Peña
Reason for Consultation: ODALYS hyperkalemia
Medical History
-
Chief Complaint: Left foot osteomyelitis
History of Present Illness:
This is a 78-year-old gentleman who has hypertension typically controlled on a multidrug regimen, heart failure on chronic diuretic therapy which is compensated. He has significant peripheral arterial disease as well as a malformed left foot Has
had multiple issues with this previously and was recently found to have a lower extremity ulcer. He was placed on Bactrim for the last 5 weeks. In the emergency room he had blood work performed which had shown acute kidney injury with a creatinine
of 2.2 from his baseline of approximately 1.5. He also had hyperkalemia and hyponatremia as well as a mild metabolic acidosis. He will require surgery today with podiatry. They would also like to perform a angiogram on Saturday and there is concern
regarding contrast exposure given his acute kidney injury and electrolyte issues.
Past Medical History
Coronary artery disease, hypertension, heart failure unknown ejection fraction, hyperlipidemia, GERD, CKD 3A
Left total knee replacement
Social History
Tobacco: Non-Smoker
Alcohol: Daily
Family History
Family History: Not Pertinent
Allergies / Home Medications
Allergy/AdvReac Type Severity Reaction Status Date / Time
honey Allergy Rash Verified 10/09/23 08:28
[From [facility] (honey)]
morphine Allergy Unknown Verified 10/08/23 15:30
Penicillins Allergy Hives Verified 10/09/23 10:48
�Medication �Instructions �Recorded �Confirmed �Type
aspirin 81 mg tablet,delayed 81 mg PO QPM Blood clot 04/18/19 10/08/23 History
release prevention/tx
carvedilol 3.125 mg tablet 3.125 mg PO BID Heart disease 04/18/19 10/08/23 History
esomeprazole magnesium 20 mg 20 mg PO DAILY Gastrointestinal 04/18/19 10/08/23 History
tablet,delayed release (Nexium issue
24HR)
fish oil-dha-epa 1,200 mg-144 1 ea PO QPM Supplement 04/18/19 10/08/23 History
mg-216 mg capsule
furosemide 40 mg tablet 20 mg PO QPM Fluid 04/18/19 10/08/23 History
retention/Swelling
lisinopril 20 mg tablet 40 mg PO QPM Heart disease 04/18/19 10/08/23 History
quinine sulfate 324 mg capsule 324 mg PO QPM cramps 04/18/19 10/08/23 History
vit C 250 mg-vit E 90 mg-zinc 40 2 ea PO QPM Supplement 04/18/19 10/08/23 History
mg-copper 1 [id number]
capsule (PreserVision AREDS-2)
L.acidoph, paracasei,B. lactis 10 1 ea PO QPM Gastrointestinal issue 04/23/19 10/08/23 History
billion cell capsule
calcium citrate 200 mg (950 mg) 200 mg PO QPM Supplement 04/23/19 10/08/23 History
tablet
oxycodone 5 mg tablet 5 mg PO BIDPRN PRN moderate pain 04/23/19 10/08/23 History
testosterone 30 mg/actuation (1.5 1 applic topical QPM hormone 04/23/19 10/08/23 History
mL) transderm solution metered pump replacement
cholecalciferol (vitamin D3) 50 50 mcg PO QPM Supplement 10/08/23 10/08/23 History
mcg (2,000 unit) tablet
empagliflozin 10 mg tablet 10 mg PO QPM Diabetes 10/08/23 10/08/23 History
(Jardiance)
spironolactone 25 mg tablet 12.5 mg PO QPM Blood Pressure 10/08/23 10/08/23 History
sulfamethoxazole 800 1 tab PO BID Infection 10/08/23 10/08/23 History
mg-trimethoprim 160 mg tablet
Review of Systems
-
No chest pain, no shortness of breath
All other systems: Negative unless noted
Physical Exam
Vital Signs
Vital Signs
Temp Pulse Resp BP Pulse Ox
98.2 F 60 18 116/67 96
10/09/23 08:09 10/09/23 08:09 10/09/23 08:09 10/09/23 08:09 10/09/23 08:09
Lab Results
WBC 6.5 10^3/uL (4.8-10.8) 10/09/23 06:32
RBC 4.43 10^6/uL (4.70-6.10) L 10/09/23 06:32
Hgb 13.5 g/dL (13.0-18.0) 10/09/23 06:32
Hct 40.4 % (39.0-52.0) 10/09/23 06:32
Plt Count 249 10^3/uL (130-400) 10/09/23 06:32
Sodium 134 mmol/L (135-145) L 10/09/23 06:32
Potassium 5.5 mmol/L (3.5-5.1) H 10/09/23 06:32
Chloride 103 mmol/L (98-107) 10/09/23 06:32
Carbon Dioxide 23 mmol/L (22-30) 10/09/23 06:32
BUN 37 mg/dl (9-20) H 10/09/23 06:32
Creatinine 1.9 mg/dL (0.7-1.3) H 10/09/23 06:32
eGFR 35.44 10/09/23 06:32
Glucose 91 mg/dl (70-99) 10/09/23 06:32
Calcium 9.8 mg/dl (8.4-10.2) 10/09/23 06:32
Albumin 3.5 g/dl (3.5-5.0) 10/09/23 06:32
Physical Exam
Patient is awake alert oriented and in no distress. Mood and affect were pleasant, insight and judgment were good. Pupils are equal round and reactive to light, extraocular movements are intact, sclera were anicteric. Hearing was normal, ears and
nose are intact. Oropharynx was clear. Neck was supple with trachea midline and no thyromegaly. Heart was regular rate and rhythm without rubs. Lower extremities with 1+ left lower leg edema. Lungs were clear to auscultation bilaterally and with
normal excursion. Abdomen was soft, nontender, with normal active bowel sounds, and no hepatosplenomegaly. Skin was without rash and with normal turgor.
Data Reviewed
-
Radiology: Image Personally Visualized and interpreted (Foot x-ray on August 27, 2023 by my reading shows hallux valgus deformity scattered degenerative changes)
Labs: Labs Reviewed by me (Sodium 134, potassium 5.5, bicarbonate 23, BUN 37, creatinine 1.9)
Old Records: Reviewed (On August 23, 2023 creatinine 1.5)
Assessment/Plan
-
Assessment
ODALYS
Hyperkalemia
Metabolic acidosis
Hypertension
Left foot osteomyelitis
CKD 3A, 1.5
Plan
off Bactrim
Holding spironolactone, lisinopril, Jardiance
Check urine studies
for OR today for debridement
Follow BMP
May undergo angiogram on Saturday if creatinine returns to baseline
Would then provide bicarbonate IV fluids with procedure
[2023-10-09] MEDS: STERILE WATER FOR INJECTION IV (12:31)
[2023-10-09 12:50] LABS: Glycohemoglobin (HgbA1c) 5.6 % (4.0-5.6)
--- NOTE | 2023-10-09 13:55 | W.SUR.POST ---
Surgical Immediate Post Op
Note
Pre Op Diagnosis: osteomyelitis/ foot deformity left 1st met
Post Op Diagnosis: same as above
Procedure Performed: 1st met head/sesmoid resection left foot w/excision of ulcer and primary repair left foot
Primary Surgeon: Jorge
Secondary Surgeons: n/a
Anesthesia: IV sed w/local block left foot
Estimated Blood Loss: 40mL
Fluids: n/a
Drains/Shunts: n/a
Specimens/Cultures: 1st met head left
Doppler/Duplex/Angio (Y/N): N
Complications: none
Operative Findings:
see op note
[2023-10-09 14:09] LABS: Glucose - Point of Care 95 mg/dl (70-99)
[2023-10-09] MEDS: MAXIPIME IV (14:15)
--- NOTE | 2023-10-09 15:19 | PTCARENOTE ---
Received pt from PACU, VSS, bulky dressing intact to left foot, no drainage noted. +CMS to left toes, weak but palpable PT pulse. Denies pain at present.
--- NOTE | 2023-10-09 16:23 | CM ---
territory sales manager medical reviewed patient's chart and patient lives with spouse in a 2 story home with 4 steps to enter, patient is independent with adl's and uses a walker with ambulation.
Pharmacy [facility]
PCP: Dr. Bennett
Plan; To follow for discharge planning needs.
[2023-10-09] MEDS: OSCAL CAL 500 500 MG PO (17:24)
[2023-10-09] MEDS: VISBIOME 1 CAP PO (17:24)
[2023-10-09] MEDS: OCUVITE SOFTGEL 2 CAP PO (17:24)
[2023-10-09] MEDS: FLAGYL 500 MG PO ×2 (17:24→23:11)
[2023-10-09] MEDS: ASPIR LOW (ENTERIC COATED) 81 MG PO (17:24)
[2023-10-09] MEDS: VITAMIN D3 (cholecalciferol) 50 MCG PO (17:24)
[2023-10-09 17:30] LABS: Urine Albumin Negative (Neg - Trace); Urine Bilirubin Negative (Negative); Urine Character Clear (Clear); Urine Color Yellow; Urine Glucose 1+ (Negative); Urine Ketone Negative (Negative); Urine Leukocyte Negative (Negative); Urine Nitrite Negative (Negative); Urine Occult Blood Negative (Negative); Urine Urobilinogen Negative (Neg - 1+); Urine pH 6.5 (5.0-9.0)
[2023-10-09 17:54] LABS: Urine Sodium 119 mmol/L (30-90)
[2023-10-09 18:00] LABS: Body Fluid for Eosinophils 3% Eosinophils seen
[2023-10-09] MEDS: HEPARIN 5000 UNITS SC (20:11)
[2023-10-10 03:32] VITALS: BP 93/56
[2023-10-10 06:00] VITALS: BMI 28.7
[2023-10-10 07:00] VITALS: BP 117/70
[2023-10-10 07:42] LABS: Vancomycin Random 12.5 ug/ml
[2023-10-10 08:00] LABS: Blood Urea Nitrogen 29 mg/dl (9-20); Calcium 10.1 mg/dl (8.4-10.2); Carbon Dioxide 23 mmol/L (22-30); Chloride 101 mmol/L (98-107); Estimated Creatinine Clearance 37 ml/min; Glucose 102 mg/dl (70-99); Potassium 4.9 mmol/L (3.5-5.1); Sodium 132 mmol/L (135-145); eGFR 43.56
--- NOTE | 2023-10-10 08:02 | W.PN.HOSP.TC ---
Today's Communication/Plan
-
see bold
Assessment / Plan
Assessment / Plan
HPI: 78-year-old male past medical history of coronary artery disease, CHF, hypertension, hyperlipidemia, GERD, presenting with osteomyelitis of left foot. Due to chronic deformity of his foot, the medial aspect of his left MTP rubs against shoe
and he developed an ulcer approximately 5 weeks ago and has been on Bactrim for 5 weeks. Also has been draining some liquid. He denies any fevers or chills. His production troubleshooter ordered outpatient MRI which showed osteomyelitis and he was sent in for
IV antibiotics. He denies any pain.
Patient also had a injury when his left toe got caught in carpet resulting in injury of his foot. He was found to have complete tear of left Achilles tendon on recent MRI, and nonoperative management was recommended by podiatry due to osteomyelitis
and vascular insufficiency.
# Left MTP ulcer/osteomyelitis
# Developmental varus deformity
Appreciate podiatry input, s/p first metatarsal head resection of the left foot
Appreciate ID input, treat with vancomycin/cefepime/Flagyl. F/u bone cultures from the OR
Wound care, PT/OT post-op
# Peripheral arterial disease of left lower extremity
Recent arterial ultrasound shows decrease in toe brachial index to 0.59 from 1.07 previously
Appreciate vascular surgery input, likely would need left lower extremity arteriogram
Per nephro: may undergo angiogram on Saturday if creatinine returns to baseline
Continue aspirin, add statin
# Near complete tear of left Achilles tendon
Recent MRI showed near complete tear of left Achilles tendon, somewhat extensive atrophy of the imaged left calf musculature and left ankle intrinsic musculature likely reflecting diabetes or peripheral vascular disease, subtalar joint effusion
extending into the sinus tarsi, tenosynovitis of the distal peroneus longus
# ODALYS on CKD
# Hyperkalemia exacerbated by Bactrim
Appreciate nephrology input, continue holding Bactrim, lisinopril, Lasix, spironolactone
Potassium normal today, status post Lokelma
Creatinine improved today at 1.6, close to his baseline, down from 2.2 upon admission
#Constipation
Start aggressive bowel regimen
Coronary artery disease
-Continue aspirin, add statin
History of heart failure
-Continue Coreg
-Continue empagliflozin
-Hold Lasix, spironolactone, lisinopril until renal function improves
Essential hypertension
Hyperlipidemia
GERD
-Continues omeprazole
Arthritis
-Continue oxycodone as needed
DVT prophylaxis�subcu heparin
Full code
Total time spent to see the patient on the floor, examine the patient, review data and lab results, discuss treatment plan with patient, nursing staff around 50 minutes.
Physical Exam
General: No acute distress
HEENT: Normocephalic, Atraumatic, EOMI, MMM
Respiratory: Clear to Auscultation bilaterally
Cardiac: Normal S1/S2, Regular Rate and Rhythm
GI: Soft, Nontender, Nondistended, Normal Bowel Sounds
Extremities: No Clubbing, Cyanosis, or Edema
Musculoskeletal: Left foot dressed
Neuro: Nonfocal/Grossly Intact
Psych: Calm, Cooperative
Anticipated Discharge: > 48 hours
Subjective/Interval History
-
Date of Service: October 10, 2023
Patient complains of constipation. He is not on his left foot. No fever, no vomiting.
Objective Data
-
Labs:
Laboratory Results
10/10/23
07:09
Sodium 132 L
Potassium 4.9
Chloride 101
Carbon Dioxide 23
BUN 29 H
Creatinine 1.6 H
Glucose 102 H
Calcium 10.1
Vital Signs:
Vital Signs
Temp Pulse Resp BP Pulse Ox
97.5 F 74 18 93/56 96
10/10/23 03:32 10/10/23 03:32 10/10/23 03:32 10/10/23 03:32 10/10/23 03:32
I&O
10/09/23 10/10/23 10/11/23
06:59 06:59 06:59
Intake Total 420 / 420 890 / 890 480 / 480
Output Total 1050 / 1050 900 / 900 400 / 400
Balance -630 / -630 -10 / -10 80 / 80
[2023-10-10] MEDS: FLAGYL 500 MG PO ×3 (08:30→23:28)
[2023-10-10] MEDS: HEPARIN 5000 UNITS SC ×2 (08:30→21:05)
[2023-10-10] MEDS: COREG 3.125 MG PO ×2 (08:30→21:06)
[2023-10-10] MEDS: PROTONIX 40 MG PO (08:30)
--- NOTE | 2023-10-10 09:10 | PHA.VAN.FU ---
Vancomycin Assessment / Plan
- Assessment
Renal Function: SCR Decreasing
WBC's are: WNL
In the past 24 hrs, patient has been: Afebrile
Concomitant Antimicrobials: cefepime, metronidazole
- Assessment - Therapeutic Drug Monitoring
Random Level: 12.5 - drawn ~18.5H after previous dose of 1250mg
vancomycin administered 10/08 12:37 per anesthesia record
- Dosing Plan
Dosing by Level: Re-dose today (Vanc 1250mg)
- Monitoring Plan
Random Level: 10/10 0600
- Follow Up
Pharmacy will continue to follow.
Vancomycin Follow UP
- -
Patient Age: 78
Patient Sex: Male
Vancomycin Day #: 3
Indication: Bone And [facility]
Requesting Provider: Dr. Hernandez / Rodrigo
Pertinent Antimicrobial Allergies:
Penicillins - Hives
Height / Weight:
Height 5 ft 9 in
Actual Weight 88.11 kg
Pertinent Past Medical History: PAD, CKD (baseline SCR ~1.5)
- Vital Signs / Lab Results
Temp Pulse Resp BP Pulse Ox
97.8 F 66 18 117/70 96
10/10/23 07:00 10/10/23 08:30 10/10/23 07:00 10/10/23 08:30 10/10/23 07:00
Lab Results - Hematology
10/08/23 10/09/23
16:15 06:32
WBC 9.1 6.5
Lab Results - Chemistry
10/08/23 10/09/23 10/10/23
16:15 06:32 07:09
BUN 45 H 37 H 29 H
Creatinine 2.2 H 1.9 H 1.6 H
Estimated Creat Clear 27 32 37
Albumin 4.0 3.5
Lab Results - Urine
10/09/23
17:20
Urine Nitrite Negative
Ur Leukocyte Esterase Negative
Microbiology Results
10/08/23 21:24 MRSA Screen - Final
Nose No Methicillin Resistant Staphylococcus aureus isolated.
10/08/23 16:15 Blood Culture - Preliminary
Blood/Venous No Growth in 24 hours- Final report to follow
10/09/23 13:12 Gram Stain - Preliminary
Foot - Left
Therapeutic Drug Monitoring
Random Vancomycin 12.5 ug/ml 10/10/23 07:09
[2023-10-10] MEDS: MIRALAX 17 GRAMS PO ×2 (09:15→21:06)
[2023-10-10] MEDS: MAXIPIME 1000 MG IV ×2 (12:03→23:28)
[2023-10-10] MEDS: STERILE WATER FOR INJECTION 10 ML IV ×2 (12:04→23:28)
[2023-10-10] MEDS: VANCOCIN 275 MG IV (12:04)
--- NOTE | 2023-10-10 12:37 | CM ---
manager wound care reviewed patient's chart and recommendation is for home with his spouse when stable.
Plan; Home with spouse when stable.
--- NOTE | 2023-10-10 13:10 | W.PN.NEPH.PH ---
Today's Communication / Plan
-
follow BMP
Assessment/Plan
-
Assessment
ODALYS
Hyperkalemia
Metabolic acidosis
Hypertension
Left foot osteomyelitis
CKD 3A, 1.5
Plan
off Bactrim
Holding spironolactone, lisinopril, Jardiance
Follow BMP
May undergo angiogram on Saturday if creatinine is < 1.6
Would provide bicarbonate IV fluids with procedure
-
-
Date of Service: October 10, 2023
CC / HPI / ROS
-
Chief Complaint:
ODALYS
History of Present Illness:
ODALYS/Cr down to 1.6
BP stable off meds
s/p LLE 1st MT head rsxn 10/08
Review of Systems:
no CP/SOB
Labs
-
Labs:
WBC 6.5 10^3/uL (4.8-10.8) 10/09/23 06:32
RBC 4.43 10^6/uL (4.70-6.10) L 10/09/23 06:32
Hgb 13.5 g/dL (13.0-18.0) 10/09/23 06:32
Hct 40.4 % (39.0-52.0) 10/09/23 06:32
Plt Count 249 10^3/uL (130-400) 10/09/23 06:32
Sodium 132 mmol/L (135-145) L 10/10/23 07:09
Potassium 4.9 mmol/L (3.5-5.1) 10/10/23 07:09
Chloride 101 mmol/L (98-107) 10/10/23 07:09
Carbon Dioxide 23 mmol/L (22-30) 10/10/23 07:09
BUN 29 mg/dl (9-20) H 10/10/23 07:09
Creatinine 1.6 mg/dL (0.7-1.3) H 10/10/23 07:09
eGFR 43.56 10/10/23 07:09
Glucose 102 mg/dl (70-99) H 10/10/23 07:09
Calcium 10.1 mg/dl (8.4-10.2) 10/10/23 07:09
Albumin 3.5 g/dl (3.5-5.0) 10/09/23 06:32
Physical Exam
-
Vital Signs:
Vital Signs
Temp Pulse Resp BP Pulse Ox
97.8 F 66 18 117/70 96
10/10/23 07:00 10/10/23 08:30 10/10/23 07:00 10/10/23 08:30 10/10/23 10:35
Cardiovascular:: Regular rate and rhythm
Respiratory:: Bilateral: CTA
Lung Excursion:: Normal
Abdomen:: Nontender and Soft
Bowel Sounds:: Normal
Extremity Edema:: None: Bilateral:
--- NOTE | 2023-10-10 15:30 | W.PN.ID1 ---
Date of Service
Date of Service: October 10, 2023
Assessment / Plan
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
Lisfrank deformity
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
- obtain MRI report to clarify extent of suspected osteomyelitis - from [facility]
- note that grossly infected material sent for culture, and the margin sent for pathology
- continue vancomycin, cefepime for the moment
- add metronidazole 500 TID starting this evening (post operatively) to maximize culture results
- AIN could be due to recent bactrim or chronic Quinine - recommend avoiding both in the future if feasible. Note that the decline in renal function may have begun prior to the prescription for bactrim. Follow to further clarify the baseline
- follow clinically
Note Patient is on Quinine qpm outpatient - it would generally not be a recommended therapy for nocturnal leg cramps due to risk of ADRs - message left for PCP, could consider referral to sleep medicine for further workup/alternative treatments for
the leg cramps.
Chief Complaint
-: Other (osteomyelitis)
Subjective / Review of Systems
afebrile
bp stable
cr further improved overnight may be approaching his baseline
Vital Signs / Physical Exam
Vital Signs
Vital Signs
Temp Pulse Resp BP Pulse Ox
97.8 F 66 18 117/70 96
10/10/23 07:00 10/10/23 08:30 10/10/23 07:00 10/10/23 08:30 10/10/23 10:35
Objective Data
Lab Data
Lab Results
10/09/23 06:32
10/10/23 07:09
Estimated Creat Clear 37 ml/min 10/10/23 07:09
Total Bilirubin 0.6 mg/dl (0.2-1.3) 10/09/23 06:32
AST 26 U/L (17-59) 10/09/23 06:32
ALT 24 U/L (0-50) 10/09/23 06:32
Alkaline Phosphatase 96 U/L (38-126) 10/09/23 06:32
Most recent labs reviewed.
Micro Results:
10/09/23 13:12 Anaerobic Culture - Preliminary
Foot - Left Culture pending. Anaerobic cultures are examined after 3
days incubation. Additional information to follow.
10/09/23 13:12 Tissue Culture - Preliminary
Foot - Left No Growth After 18-24 Hours
Gram Stain - Preliminary
10/08/23 21:24 MRSA Screen - Final
Nose No Methicillin Resistant Staphylococcus aureus isolated.
10/08/23 16:15 Blood Culture - Preliminary
Blood/Venous No Growth in 24 hours- Final report to follow
--- NOTE | 2023-10-10 15:37 | W.PN.UPDATE ---
Update Note
Progress Note Update
Met with patient and Libia at bedside, reviewed recommendation of left lower extremity angiogram, details of procedure/recovery, and risk vs. benefits; all questions and concerns addressed. Patient and are agreeable to proceed, will add
patient to OR schedule for 10/11/2023 for left lower extremity angiogram, possible stent and balloon angioplasty with Dr. Ji Carvalho III. NPO at midnight.
[2023-10-10 15:40] VITALS: BP 114/65
[2023-10-10] MEDS: VISBIOME 1 CAP PO (17:13)
[2023-10-10] MEDS: VITAMIN D3 (cholecalciferol) 50 MCG PO (17:13)
[2023-10-10] MEDS: ASPIR LOW (ENTERIC COATED) 81 MG PO (17:13)
[2023-10-10] MEDS: OSCAL CAL 500 500 MG PO (17:13)
[2023-10-10] MEDS: OCUVITE SOFTGEL 2 CAP PO (17:13)
[2023-10-10] MEDS: ROXICODONE 5 MG PO ×2 (19:31→23:28)
[2023-10-10 19:52] VITALS: BP 107/66
[2023-10-10 23:01] VITALS: BP 111/69
[2023-10-11] VITALS (15 sets, daily range): BP systolic 90–117; BP diastolic 59–69; BMI 28.8
--- NOTE | 2023-10-11 07:20 | W.PN.POD ---
Today's Communication
Today's Communication
POD #2 - dressing removed -scant bleeding to dressings, good cft to periphery. Redressed.
Pt for Agram today
Will re eval in am 10/11, and follow up as outpt in the office next week
Assessment / Plan
-
H/o Foot deformity B/L
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
PAD
S/P resection of 1st met head and excision and repair of ulcer left foot
Achilles rupture left- Pt sought 2nd opinion at [facility]/ Dr Ursula Angeles and will be fit with shabbir jett
Subjective
Chief Complaint
S/P Resection 1st met head nd excision and primary repair wound left foot-POD #2
Subjective
Patient has minimal pain today, states he had some post op pain yesterday, denies F/C/N/V
Objective
Temp Pulse Resp BP Pulse Ox
98.0 F 60 18 117/69 95
10/11/23 07:48 10/11/23 08:50 10/11/23 07:48 10/11/23 08:50 10/11/23 11:42
10/11/23 07:13
10/11/23 07:13
Micro- no growth bone cx (he was on abt for 3-4 weeks) path pending
Vital Signs and Lab results were reviewed.
Xrays demonstrate adequate resection of bone left 1st met head
Review of Systems
Review of Systems
Review of Systems: No Fever, No Chills, No Headache, No Nausea, No Diarrhea and No Skin Rash
Physical Exam
Physical Exam
General: No Apparent Distress, Comfortable and Conversant
Musculoskeletal: Muscle Strength (gap to posterior achilles left secondary to near complete rupture) and Other (chronic skew foot deformity B/L feet with good reduction of 1st ray deformity)
Skin: Warm, Dry and Other (no erythema or edema, no signs of infection,incision C/D/I and well coapted)
Neuro: AO x 3, Protective Sensation Absent and Protective Sensation Diminished
Vascular: Skin Temperature Warm to Cool and Other
Dorsalis Pedis: Intact
Posterior Tibialis: Diminished
--- NOTE | 2023-10-11 08:31 | W.PN.HOSP.TC ---
Today's Communication/Plan
-
For LLE angiogram today
Assessment / Plan
Assessment / Plan
HPI: 78-year-old male past medical history of coronary artery disease, CHF, hypertension, hyperlipidemia, GERD, presenting with osteomyelitis of left foot. Due to chronic deformity of his foot, the medial aspect of his left MTP rubs against shoe
and he developed an ulcer approximately 5 weeks ago and has been on Bactrim for 5 weeks. Also has been draining some liquid. He denies any fevers or chills. His speech assistant ordered outpatient MRI which showed osteomyelitis and he was sent in for
IV antibiotics. He denies any pain.
Patient also had a injury when his left toe got caught in carpet resulting in injury of his foot. He was found to have complete tear of left Achilles tendon on recent MRI, and nonoperative management was recommended by podiatry due to osteomyelitis
and vascular insufficiency.
# Left MTP ulcer/osteomyelitis
# Developmental varus deformity
Appreciate podiatry input, s/p first metatarsal head resection of the left foot 10/08
Appreciate ID input, appears to have a surgical cure with resection of infected bone. Stopped vancomycin/cefepime/Flagyl.
Wound care, PT/OT
# Peripheral arterial disease of left lower extremity
Recent arterial ultrasound shows decrease in toe brachial index to 0.59 from 1.07 previously
Appreciate vascular surgery input, for left lower extremity arteriogram today
Continue aspirin, added statin
# Near complete tear of left Achilles tendon
Recent MRI showed near complete tear of left Achilles tendon, somewhat extensive atrophy of the imaged left calf musculature and left ankle intrinsic musculature likely reflecting diabetes or peripheral vascular disease, subtalar joint effusion
extending into the sinus tarsi, tenosynovitis of the distal peroneus longus
# ODALYS on CKD
# Hyperkalemia exacerbated by Bactrim
Appreciate nephrology input, continue holding Bactrim, lisinopril, Lasix, spironolactone
Potassium normal today, status post Lokelma
Creatinine improved today at 1.5, was 1.6, close to his baseline, down from 2.2 upon admission
#Constipation
Continue aggressive bowel regimen
Coronary artery disease
-Continue aspirin, added statin
History of heart failure
-Continue Coreg
-Continue empagliflozin
-Hold Lasix, spironolactone, lisinopril until renal function improves
Essential hypertension
Hyperlipidemia
GERD
-Continues omeprazole
Arthritis
-Continue oxycodone as needed
DVT prophylaxis�subcu heparin
Full code
Total time spent to see the patient on the floor, examine the patient, review data and lab results, discuss treatment plan with patient, nursing staff around 40 minutes.
Physical Exam
General: No acute distress
HEENT: Normocephalic, Atraumatic, EOMI, MMM
Respiratory: Clear to Auscultation bilaterally
Cardiac: Normal S1/S2, Regular Rate and Rhythm
GI: Soft, Nontender, Nondistended, Normal Bowel Sounds
Extremities: No Clubbing, Cyanosis, or Edema
Musculoskeletal: Left foot dressed
Neuro: Nonfocal/Grossly Intact
Psych: Calm, Cooperative
Anticipated Discharge: 24 - 48 hours
Subjective/Interval History
-
Date of Service: October 11, 2023
Has some left foot pain, relieved w/ oxy. No fever, no vomiting.
Objective Data
-
Labs:
Laboratory Results
10/11/23
07:13
WBC Pending
Hgb Pending
Hct Pending
Plt Count Pending
PT Pending
INR Pending
Sodium Pending
Potassium Pending
Chloride Pending
Carbon Dioxide Pending
BUN Pending
Creatinine Pending
Glucose Pending
Calcium Pending
Vital Signs:
Vital Signs
Temp Pulse Resp BP Pulse Ox
98.0 F 60 18 117/69 97
10/11/23 07:48 10/11/23 07:48 10/11/23 07:48 10/11/23 07:48 10/11/23 07:48
I&O
10/10/23 10/11/23 10/12/23
06:59 06:59 06:59
Intake Total 890 / 890 2255 / 2255
Output Total 900 / 900 2650 / 2650
Balance -10 / -10 -395 / -395
[2023-10-11] MEDS: FLAGYL 500 MG PO (08:49)
[2023-10-11] MEDS: PROTONIX 40 MG PO (08:49)
[2023-10-11] MEDS: HEPARIN 5000 UNITS SC ×2 (08:49→20:38)
[2023-10-11] MEDS: COREG 3.125 MG PO ×2 (08:50→20:39)
[2023-10-11] MEDS: MIRALAX PO ×2 (08:50→20:37)
[2023-10-11 08:54] LABS: INR 1.04; PT 13.4 Sec (11.4-14.6)
[2023-10-11 09:03] LABS: Vancomycin Random 13.1 ug/ml
[2023-10-11 09:06] LABS: Hemoglobin 13.9 g/dL (13.0-18.0); Mean Corp Hgb Conc. 33.9 g/dL (33.0-37.0); Mean Corpuscular Hgb 30.9 pg (27.0-31.0); Mean Corpuscular Volume 91.1 fL (80.0-94.0); Mean Platelet Volume 9.9 fL (7.4-10.4); Platelet Count 244 10^3/uL (130-400); Red Cell Dist. Width 13.4 % (11.5-14.5); White Blood Cell Count 8.6 10^3/uL (4.8-10.8)
[2023-10-11 09:49] LABS: Blood Urea Nitrogen 26 mg/dl (9-20); Calcium 9.7 mg/dl (8.4-10.2); Carbon Dioxide 28 mmol/L (22-30); Chloride 100 mmol/L (98-107); Estimated Creatinine Clearance 40 ml/min; Glucose 83 mg/dl (70-99); Potassium 4.9 mmol/L (3.5-5.1); Sodium 132 mmol/L (135-145); eGFR 47.06
[2023-10-11] MEDS: ROXICODONE 5 MG PO ×2 (10:12→20:47)
--- NOTE | 2023-10-11 10:36 | PHA.VAN.FU ---
Vancomycin Assessment / Plan
- Assessment
Renal Function: SCR Decreasing (1.9-> 1.6->1.5 (baseline))
WBC's are: WNL
In the past 24 hrs, patient has been: Afebrile
Concomitant Antimicrobials: cefepime, metronidazole
- Assessment - Therapeutic Drug Monitoring
Random Level: 13.1 ( after previous 1250 mg dose given 10/09 ~1200)
- Dosing Plan
Adjust Regimen to: vancomycin 1250 mg q24h - first dose today 1200 then 0600 daily
New Regimen Predicts: AUC (555), Peak (34.1), Trough (14.6)
T 1/2 ~ 18.4 h
- Monitoring Plan
No level(s) ordered at this time: consider levels in few days or if renal function changed
- Follow Up
Pharmacy will continue to follow.
Vancomycin Follow UP
- -
Patient Age: 78
Patient Sex: Male
Vancomycin Day #: 4
Indication: Bone And Joint
Requesting Provider: Dr. Hernandez / Rodrigo
Pertinent Antimicrobial Allergies:
Penicillins - Hives
Height / Weight:
Height 5 ft 9 in
Actual Weight 88.252 kg
Pertinent Past Medical History: PAD, CKD (baseline SCR ~1.5)
- Vital Signs / Lab Results
Temp Pulse Resp BP Pulse Ox
98.0 F 60 18 117/69 97
10/11/23 07:48 10/11/23 08:50 10/11/23 07:48 10/11/23 08:50 10/11/23 07:48
Lab Results - Hematology
10/08/23 10/09/23 10/11/23
16:15 06:32 07:13
WBC 9.1 6.5 8.6
Lab Results - Chemistry
10/08/23 10/09/23 10/10/23
16:15 06:32 07:09
BUN 45 H 37 H 29 H
Creatinine 2.2 H 1.9 H 1.6 H
Estimated Creat Clear 27 32 37
Albumin 4.0 3.5
10/11/23
07:13
BUN 26 H
Creatinine 1.5 H
Estimated Creat Clear 40
Albumin
Microbiology Results
10/09/23 13:12 Tissue Culture - Preliminary
Foot - Left No Growth After 48 Hours
Gram Stain - Preliminary
10/08/23 16:15 Blood Culture - Preliminary
Blood/Venous No Growth in 48 hours- Final report to follow
10/09/23 13:12 Anaerobic Culture - Preliminary
Foot - Left Culture pending. Anaerobic cultures are examined after 3
days incubation. Additional information to follow.
10/08/23 21:24 MRSA Screen - Final
Nose No Methicillin Resistant Staphylococcus aureus isolated.
Therapeutic Drug Monitoring
Random Vancomycin 13.1 ug/ml 10/11/23 07:13
--- NOTE | 2023-10-11 10:46 | CM ---
CM following re: discharge planning.
Reviewed pt's chart, met with pt. Pt to OR today for left lower extremity angiogram, possible stent and balloon angioplasty with Dr. Ji Carvalho III.
PT and OT will evaluate the pt when clinically appropriate.
Per CM note, patient lives with spouse in a 2 story home with 4 steps to enter, patient is independent with ADL and uses a walker with ambulation.
D/C plan: Home with most likely VN services. Awaiting for PT/OT evaluations/recommendations
CM will follow with discharge plan updates as hospitalization progresses
[2023-10-11] MEDS: STERILE WATER FOR INJECTION 10 ML IV (11:18)
[2023-10-11] MEDS: MAXIPIME 1000 MG IV (11:18)
[2023-10-11] MEDS: FLUSH (NSS) 1 FLUSH IV ×2 (11:19→11:22)
[2023-10-11] MEDS: SODIUM BICARBONATE 1150 MEQ IV (11:19)
--- NOTE | 2023-10-11 12:25 | W.PN.ID1 ---
Date of Service
Date of Service: October 11, 2023
Today's Communication
stopped antibiotics, follow path
Assessment / Plan
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
Lisfrank deformity
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
- reviewed paper and electronic chart, I can see that MRI from [facility] was requested but no report on the chart yet - re-request. Will ask podiatry office as we were no successful with jayde directly.
- appears to have a surgical cure with resection of infected bone
- note that cultures taken from resected, grossly infected bone - no growth to date
- path from the clean margin
- for angiogram L leg today
- urine eosinophiluria suggestive of AIN - could be due to quinine or bactrim; use of either drug in the future would require close monitoring and prompt cessation if relapse of AIN - I have added these to patients allergy list and left message for
his PCP Dr Bnenett yesterday at his office - no call back thus far. He could consider outpatient referral to sleep medicine for management of nocturnal leg cramps if need. Note that quinine is no longer fda approved for leg cramps due to risk of
ADRs.
- stopped antibiotics, follow pathology
- follow clinically
Chief Complaint
-: Other (osteomyelitis)
Subjective / Review of Systems
afebrile
bp stable
without leukocyotsis
urine eosinophiluria suggestive of AIN
OR culture negative thus far
Vital Signs / Physical Exam
Vital Signs
Vital Signs
Temp Pulse Resp BP Pulse Ox
98.0 F 60 18 117/69 95
10/11/23 07:48 10/11/23 08:50 10/11/23 07:48 10/11/23 08:50 10/11/23 11:42
Physical Exam
Constitutional: No Acute Distress
Cardiovascular: Regular Rate and S1/S2; Negative Murmur or Rub
Pulmonary: Clear and Symmetric; Negative Wheezes or Rales
Gastrointestinal: Soft, Non Tender, Non Distended and Normal Bowel Sounds
Skin: Warm and Dry; Negative Rash or Jaundice
Wound: Other (dressing clean, dry, intact)
Objective Data
Lab Data
Lab Results
10/11/23 07:13
10/11/23 07:13
PT 13.4 Sec (11.4-14.6) 10/11/23 07:13
INR 1.04 10/11/23 07:13
Estimated Creat Clear 40 ml/min 10/11/23 07:13
Total Bilirubin 0.6 mg/dl (0.2-1.3) 10/09/23 06:32
AST 26 U/L (17-59) 10/09/23 06:32
ALT 24 U/L (0-50) 10/09/23 06:32
Alkaline Phosphatase 96 U/L (38-126) 10/09/23 06:32
Most recent labs reviewed.
Micro Results:
10/09/23 13:12 Tissue Culture - Preliminary
Foot - Left No Growth After 48 Hours
Gram Stain - Preliminary
10/08/23 16:15 Blood Culture - Preliminary
Blood/Venous No Growth in 48 hours- Final report to follow
10/09/23 13:12 Anaerobic Culture - Preliminary
Foot - Left Culture pending. Anaerobic cultures are examined after 3
days incubation. Additional information to follow.
10/08/23 21:24 MRSA Screen - Final
Nose No Methicillin Resistant Staphylococcus aureus isolated.
--- NOTE | 2023-10-11 13:34 | W.SUR.PREOP ---
Pre-Operative Surgical Note
-
I have examined this patient prior to the performance of the scheduled procedure.
The patient's condition is unchanged from the time of the current History and
Physical and the patient is able to undergo the scheduled procedure.
--- NOTE | 2023-10-11 14:59 | W.SUR.POST ---
Surgical Immediate Post Op
Note
Pre Op Diagnosis: PAD
Post Op Diagnosis: PAD
Procedure Performed: LLE angiogram, IVL of posterior tibial artery
Primary Surgeon: Deven
Anesthesia: local and sedation
Estimated Blood Loss: <2cc
Fluids: see anesthesia flow sheet
Drains/Shunts: none
Specimens/Cultures: none
Doppler/Duplex/Angio (Y/N): Y
Complications: none
Operative Findings: Successful IVL
--- NOTE | 2023-10-11 15:43 | W.PN.UPDATE ---
Update Note
Progress Note Update
Patient in angiogram when attempted to see him
Cr down to 1.5
stopped meds --> spironolactone, lisinopril, jardiance . off bactrim and quinine for possible AIN
sodium bicarb post procedure at 80cc/hr for 6 hours if possible
please continue to trend BMPs
--- NOTE | 2023-10-11 16:26 | OR.RPT ---
Operative Report
Operative Report
Date of Operation: 10/11/2023
Pre Op Diagnosis: Status post first metatarsal head resection with suspected lower extremity arterial disease
Post Op Diagnosis: Status post first metatarsal head resection with suspected lower extremity arterial disease
Procedure:
1.) Intravascular lithotripsy to left distal posterior tibial artery stenoses (3 mm x 80 mm E8 shockwave balloon)
2.) Diagnostic aortobiiliac arteriogram
3.) Diagnostic left lower extremity arteriogram
4.) Ultrasound-guided percutaneous access to the right common femoral artery
Surgeon: Ji Carvalho III, MD
Anesthesia: Sedation with local
Fluoroscopy:
18.8 min
60 mGy
16.71 Gy.cm2
Complications: None
Estimated Blood Loss: Minimal
History and Indications for Procedure: 78-year-old male with chronic left foot deformity. He developed a nonhealing ulcer over the medial aspect of the first metatarsal head and underwent metatarsal head resection. I recommended a lower extremity
arteriogram with possible endovascular intervention.
Procedure in Detail: Hardik Corcoran was correctly identified and placed supine on the operating table. After adequate induction of anesthesia the bilateral groins were prepped and draped in the usual sterile fashion. A timeout was performed with
the nursing and anesthesia staff confirming the patient's identity as well as the nature and laterality of the procedure.
The right common femoral artery was identified under ultrasound guidance. The artery was patent. The superior and inferior aspects of the femoral head were identified with radiographic guidance and marked at the skin level. Under ultrasound guidance
we accessed the right common femoral artery with a micropuncture needle and upsized to a 5 Fr sheath over a tzonebd.comson wire. The wire and a Shepher[employer]WORKS hook flush catheter were advanced into the distal abdominal aorta and a diagnostic aorto-biiliac
arteriogram was performed:
AORTO-ILIAC ARTERIOGRAM:
Aorta: Patent with no stenosis identified
Right common iliac artery: Patent with no stenosis identified
Right external iliac artery: Patent with no stenosis identified
Left common iliac artery: Patent with no stenosis identified
Left external iliac artery: Patent with no stenosis identified
Under roadmap guidance using a Glidewire and the [employer] hook catheter we selected the left common iliac artery and then the external iliac artery. A catheter was tracked up and over the aortic bifurcation and placed in the distal external iliac
artery. A diagnostic left lower extremity arteriogram was then performed which demonstrated the following:
LEFT LOWER EXTREMITY:
Common femoral artery: Patent with no stenosis identified
Profunda femoral artery: Patent with no stenosis identified
Superficial femoral artery: Patent with no stenosis identified
Popliteal artery: Patent with no stenosis identified
Anterior tibial artery: Patent with no stenosis identified
Tibioperoneal trunk: Patent with no stenosis identified
Peroneal artery: Patent with no stenosis identified
Posterior tibial artery: Patent. Scattered high-grade stenoses identified throughout the distal arterial segment.
ENDOVASCULAR INTERVENTION: Systemic heparin was administered. I selected the superficial femoral artery with the garzon's the catheter and Glidewire. Exchanged out for a 5 Fr 90 cm sheath over a Storq wire. Selected the posterior tibial artery
under roadmap guidance with Quickcross catheter and glidewire. The distal posterior tibial artery stenoses were crossed with a Quickcross and Glidewire. The wire and catheter were advanced into a plantar branch in the foot and subtraction angio
confirmed proper position in the true lumen. Exchanged out for a 0.014 wire. Due to the calcified nature of the arterial disease and in an effort to modify the calcium to achieve maximum luminal gain with endovascular intervention I elected to
proceed with intravascular lithotripsy. A 3 mm x 80 mm E8 shockwave balloon was placed across the posterior tibial artery stenosis under roadmap guidance. Alternating rounds of lithotripsy pulse delivery at sub-nominal pressure and angioplasty at
nominal pressure was performed across the stenosis. In between rounds of pulse delivery and angioplasty the balloon was deflated and repositioned under roadmap guidance. All 400 pulses were delivered.
Subsequent arteriogram demonstrated an excellent technical result. There was an area of moderate residual stenosis proximal to IVL treated segment. I ballooned this with a 3 mm x 60 mm angioplasty balloon.
COMPLETION ARTERIOGRAM: Excellent technical result. Widely patent posterior tibial artery with brisk flow. Robust flow to the forefoot and metatarsal resection wound via the dorsalis pedis artery as well as plantar branches from the posterior
tibial artery.
Satisfied with this result we concluded the procedure. The sheath tip was pulled back into the right external iliac artery. Protamine was administered.
The patient tolerated the procedure well and was taken to the recovery area in stable condition.
Signed:
Ji Carvalho III, MD
[facility]
[phone] (cell)
--- NOTE | 2023-10-11 16:35 | PTCARENOTE ---
Received patient from PACU s/p LLE angiogram. Pt AAX3. VSS. Pox: 97% RA. NSS infusing at 80ml/hr. Call car within reach. Plan of care ongoing.
[2023-10-11] MEDS: NSS 1000 IV (16:51)
[2023-10-11] MEDS: LIPITOR 40 MG PO (18:01)
[2023-10-11] MEDS: VISBIOME 1 CAP PO (18:01)
[2023-10-11] MEDS: OSCAL CAL 500 500 MG PO (18:01)
[2023-10-11] MEDS: VITAMIN D3 (cholecalciferol) 50 MCG PO (18:01)
[2023-10-11] MEDS: OCUVITE SOFTGEL 2 CAP PO (18:01)
[2023-10-11] MEDS: ASPIR LOW (ENTERIC COATED) 81 MG PO (18:01)
[2023-10-11] MEDS: STERILE WATER FOR INJECTION IV (22:28)
[2023-10-12 03:31] VITALS: BP 102/65
[2023-10-12 05:24] VITALS: BMI 29.0
[2023-10-12 07:00] VITALS: BP 112/66
--- NOTE | 2023-10-12 07:13 | W.PN.VS ---
Today's Communication / Plan
-
Follow-up outpatient
Assessment/Plan
-
POD 1 Intravascular lithotripsy to left distal posterior tibial artery stenoses (3 mm x 80 mm E8 shockwave balloon)
Plan:
-Continue aspirin
-Okay for discharge from vascular standpoint
-Follow-up added to the chart
Subjective Data
-
Date of Service: October 12, 2023
Patient seen at bedside this a.m. no events overnight, groin site clean dry and intact
Objective Data
-
Vital Signs
Temp Pulse Resp BP Pulse Ox
98.4 F 69 12 102/65 94
10/12/23 03:31 10/12/23 03:31 10/12/23 03:31 10/12/23 03:31 10/12/23 03:31
Intake and Output
10/11/23 10/12/23 10/13/23
06:59 06:59 06:59
Intake Total 2255 / 2255 470 / 470
Output Total 2650 / 2650 950 / 950
Balance -395 / -395 -480 / -480
Intake:
Oral fluids 1979 / 1979 120 / 120
IV fluids (Total) 350 / 350
Ns 100 / 100
IV piggybacks 275 / 275
Output:
Urine, Voided 2650 / 2650 950 / 950
Other:
Number of approximated MODERATE 4
amounts of urine
Number of approximated LARGE 1
amounts of urine
Lab Results
10/11/23 07:13
Calcium 9.7 mg/dl (8.4-10.2) 10/11/23 07:13
Total Bilirubin 0.6 mg/dl (0.2-1.3) 10/09/23 06:32
AST 26 U/L (17-59) 10/09/23 06:32
ALT 24 U/L (0-50) 10/09/23 06:32
Alkaline Phosphatase 96 U/L (38-126) 10/09/23 06:32
Total Protein 5.9 g/dl (6.3-8.2) L 10/09/23 06:32
Albumin 3.5 g/dl (3.5-5.0) 10/09/23 06:32
Physical Exam
-
AAOx3
No tachypnea
No tachycardia
Abdomen soft
Groin site clean dry and intact, soft, no drainage or hematoma
Palpable bilateral DP pulses
[2023-10-12] MEDS: HEPARIN 5000 UNITS SC (08:17)
[2023-10-12] MEDS: PROTONIX 40 MG PO (08:17)
[2023-10-12] MEDS: COREG 3.125 MG PO (08:17)
[2023-10-12] MEDS: MIRALAX 17 GRAMS PO (08:19)
--- NOTE | 2023-10-12 08:40 | W.PN.HOSP.TC ---
Today's Communication/Plan
-
Discharged
Assessment / Plan
Assessment / Plan
HPI: 78-year-old male past medical history of coronary artery disease, CHF, hypertension, hyperlipidemia, GERD, presenting with osteomyelitis of left foot. Due to chronic deformity of his foot, the medial aspect of his left MTP rubs against shoe
and he developed an ulcer approximately 5 weeks ago and has been on Bactrim for 5 weeks. Also has been draining some liquid. He denies any fevers or chills. 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
IV antibiotics. He denies any pain.
Patient also had a injury when his left toe got caught in carpet resulting in injury of his foot. He was found to have complete tear of left Achilles tendon on recent MRI, and nonoperative management was recommended by podiatry due to osteomyelitis
and vascular insufficiency.
# Left MTP ulcer/osteomyelitis
# Developmental varus deformity
Appreciate podiatry input, s/p first metatarsal head resection of the left foot 10/08
Appreciate ID input, appears to have a surgical cure with resection of infected bone. Stopped vancomycin/cefepime/Flagyl.
Medically stable and cleared by podiatry for discharge, follow-up with podiatry in the office 10/15/2023
# Peripheral arterial disease of left lower extremity
Recent arterial ultrasound shows decrease in toe brachial index to 0.59 from 1.07 previously
Appreciate vascular surgery input, s/p intravascular balloon lithotripsy to left distal posterior tibial artery stenoses on 10/10
Continue aspirin, added statin. Follow-up with vascular surgery in the office
# Near complete tear of left Achilles tendon
Recent MRI showed near complete tear of left Achilles tendon, somewhat extensive atrophy of the imaged left calf musculature and left ankle intrinsic musculature likely reflecting diabetes or peripheral vascular disease, subtalar joint effusion
extending into the sinus tarsi, tenosynovitis of the distal peroneus longus
# ODALYS on CKD
# Hyperkalemia exacerbated by Bactrim
Appreciate nephrology input, ODALYS resolved with holding Bactrim/Lasix/spironolactone/lisinopril
Potassium normal today, status post Lokelma
Creatinine improved today at 1.2, was 1.5, was 1.6, close to his baseline, down from 2.2 upon admission
#Constipation
Continue aggressive bowel regimen
Coronary artery disease
-Continue aspirin, added statin
History of heart failure
-Continue Coreg
-Continue empagliflozin
-Resume Lasix, spironolactone, lisinopril upon dc
Essential hypertension
Hyperlipidemia
GERD
-Continues omeprazole
Arthritis
-Continue oxycodone as needed
DVT prophylaxis�subcu heparin
Full code
Physical Exam
General: No acute distress
HEENT: Normocephalic, Atraumatic, EOMI, MMM
Respiratory: Clear to Auscultation bilaterally
Cardiac: Normal S1/S2, Regular Rate and Rhythm
GI: Soft, Nontender, Nondistended, Normal Bowel Sounds
Extremities: No Clubbing, Cyanosis, or Edema
Musculoskeletal: Left foot dressed
Neuro: Nonfocal/Grossly Intact
Psych: Calm, Cooperative
Anticipated Discharge: Today
Subjective/Interval History
-
Date of Service: October 12, 2023
Patient reports that his left foot pain is tolerable. No fever, no vomiting.
Objective Data
-
Labs:
Laboratory Results
10/12/23
06:56
Sodium Pending
Potassium Pending
Chloride Pending
Carbon Dioxide Pending
BUN Pending
Creatinine Pending
Glucose Pending
Calcium Pending
Vital Signs:
Vital Signs
Temp Pulse Resp BP Pulse Ox
98.4 F 72 16 112/66 95
10/12/23 07:00 10/12/23 08:17 10/12/23 07:00 10/12/23 08:17 10/12/23 07:00
I&O
10/11/23 10/12/23 10/13/23
06:59 06:59 06:59
Intake Total 2255 / 2255 470 / 470
Output Total 2650 / 2650 950 / 950
Balance -395 / -395 -480 / -480
[2023-10-12 09:57] LABS: Blood Urea Nitrogen 24 mg/dl (9-20); Calcium 9.3 mg/dl (8.4-10.2); Carbon Dioxide 27 mmol/L (22-30); Chloride 102 mmol/L (98-107); Estimated Creatinine Clearance 50 ml/min; Glucose 88 mg/dl (70-99); Magnesium 1.9 mg/dl (1.6-2.3); Phosphorus 3.3 mg/dl (2.5-4.5); Sodium 135 mmol/L (135-145); eGFR > 60.00
[2023-10-12 10:01] LABS: Potassium 5.1 mmol/L (3.5-5.1)
--- NOTE | 2023-10-12 10:35 | W.PN.NEPH.PH ---
Today's Communication / Plan
-
- sign off
Assessment/Plan
-
Assessment
ODALYS
Hyperkalemia
Metabolic acidosis
Hypertension
Left foot osteomyelitis
CKD 3A, 1.5
Plan
off Bactrim
Holding spironolactone, lisinopril, Jardiance. would continue holding for now and restart as an outpatient once things stabilize per cards
Follow BMP
s/p Intravascular lithotripsy to left distal posterior tibial artery stenoses
off fluids, doing well
No need for f/u with nephrology. Nephrology to sign off
-
-
Date of Service: October 12, 2023
CC / HPI / ROS
-
Chief Complaint:
ODALYS
History of Present Illness:
ODALYS/Cr down to 1.2
BP stable off meds
s/p LLE 1st MT head rsxn 10/08
Review of Systems:
no CP/SOB
Labs
-
Labs:
WBC 8.6 10^3/uL (4.8-10.8) 10/11/23 07:13
RBC 4.50 10^6/uL (4.70-6.10) L 10/11/23 07:13
Hgb 13.9 g/dL (13.0-18.0) 10/11/23 07:13
Hct 41.0 % (39.0-52.0) 10/11/23 07:13
Plt Count 244 10^3/uL (130-400) 10/11/23 07:13
Sodium 135 mmol/L (135-145) 10/12/23 06:56
Potassium 5.1 mmol/L (3.5-5.1) 10/12/23 06:56
Chloride 102 mmol/L (98-107) 10/12/23 06:56
Carbon Dioxide 27 mmol/L (22-30) 10/12/23 06:56
BUN 24 mg/dl (9-20) H 10/12/23 06:56
Creatinine 1.2 mg/dL (0.7-1.3) 10/12/23 06:56
eGFR > 60.00 10/12/23 06:56
Glucose 88 mg/dl (70-99) 10/12/23 06:56
Calcium 9.3 mg/dl (8.4-10.2) 10/12/23 06:56
Phosphorus 3.3 mg/dl (2.5-4.5) 10/12/23 06:56
Albumin 3.5 g/dl (3.5-5.0) 10/09/23 06:32
Physical Exam
-
Vital Signs:
Vital Signs
Temp Pulse Resp BP Pulse Ox
98.4 F 72 16 112/66 95
10/12/23 07:00 10/12/23 08:17 10/12/23 07:00 10/12/23 08:17 10/12/23 07:00
Cardiovascular:: Regular rate and rhythm
Respiratory:: Bilateral: Coarse
Lung Excursion:: Normal
Abdomen:: Nontender and Soft
Bowel Sounds:: Normal
Extremity Edema:: None: Bilateral:
Carvalho Catheter: No
--- NOTE | 2023-10-12 11:11 | W.DCSUMMARY ---
Discharge Summary
Discharge Data
Date of Admission: 10/08/23
Date of Discharge: 10/12/23
-
Pending Results: No
Hospital Course
Discharge diagnosis:
Left foot ulcer with osteomyelitis
Developmental varus deformity
Peripheral artery disease of left lower extremity
Near complete tear of left Achilles tendon
Acute kidney injury superimposed on stage IIIa chronic kidney disease
Coronary artery disease
Chronic congestive heart failure
Benign essential hypertension
Gastroesophageal reflux disease
Consults: Podiatry, vascular surgery, nephrology, ID
Procedures:
10/09/2023: 1st met head and excision and repair of ulcer left foot
10/11/2023: LLE angiogram with intravascular balloon lithotripsy to left distal posterior tibial artery
Hospital course:
78-year-old male with a past medical history of coronary artery disease, CHF, hypertension, hyperlipidemia and GERD was admitted for left MTP ulcer with osteomyelitis. Patient was seen in conjunction with ID and podiatry. He was treated with
vancomycin/cefepime/Flagyl. He underwent first metatarsal head resection of his left foot on 10/09/2023. He did well postoperatively. Bone pathology showed that a surgical cure was obtained. His antibiotics were discontinued.
Patient had acute kidney injury superimposed on chronic kidney disease. He was seen in conjunction with nephrology. His Bactrim, spironolactone, lisinopril, and Lasix were held. His creatinine improved from 2.2 upon admission down to 1.2 on the day
of discharge. He can Resume his Lasix, spironolactone, and lisinopril upon discharge.
Patient was seen in conjunction with vascular surgery. He underwent left lower extremity angiogram for his peripheral artery disease. He had intravascular balloon lithotripsy to the left distal posterior tibial artery. He was continued on his
aspirin, and started on atorvastatin 40 mg at bedtime.
Patient is medically stable and cleared by podiatry for discharge. He needs to follow-up with podiatry and vascular surgery in the office. He also needs to follow-up with his primary care doctor in 1 week.
Disposition: Home self-care
Discharge plan: Required 41
Discharge Plan
-
Patient Disposition: Home (Routine Discharge)
Discharge Diagnosis/Procedures: Left foot ulcer with osteomyelitis status post full surgical cure, peripheral artery disease, acute kidney injury, congestive heart failure, hypertension
Condition: Good
Diet: Low Fat, Low Cholesterol and Low Sodium
Activity: As tolerated
Driving Restrictions: As prior to admission
Others Tests: Ultrasound appt: 11/21/23 at 2pm
Activity Restrictions/Additional Instructions:
Follow up with Dr. Carvalho and Dr. Hayes.
Wound Care Instructions
L foot local care, activity restrictions/weight bear restrictions as per Dr. Hayes's instructions.
Elevate heels off bed with pillow.
R knee high compression stocking; remove at bedtime; reapply every morning.
L knee high tubigrip; remove at bedtime; reapply every morning.
Stand Alone Forms: DC Instr - Vascular OR
Referrals:
Micah Bennett MD [Family Provider] - in one week
Tasia Hayes DPM [Active] - in one week
Lucinda Coreas CRNP [Specified Professional Personl] - 11/22/23 9:45 am (Vascular follow up)
Prescriptions:
New
atorvastatin 40 mg Tablet
40 mg PO QPM 30 Days Qty: 30 0RF
polyethylene glycol 3350 17 gram/dose powder
17 g PO DAILY Qty: 510 0RF
Continued
furosemide 40 MG tablet
20 mg PO QPM
lisinopril 20 MG tablet
40 mg PO QPM
aspirin 81 MG tablet,delayed release (DR/EC)
81 mg PO QPM
carvedilol 3.125 MG tablet
3.125 mg PO BID
quinine sulfate 324 MG capsule
324 mg PO QPM
fish oil-dha-epa 1 EACH capsule
1 ea PO QPM
esomeprazole magnesium [Nexium 24HR] 20 MG tablet,delayed release (DR/EC)
20 mg PO DAILY
PreserVision AREDS-2 1 EACH capsule
2 ea PO QPM
oxycodone 5 MG tablet
5 mg PO BIDPRN PRN (Reason: moderate pain)
Patient Comments:
10/08/2023: last filled 10/06/21, 90 tabs for 30 days from [facility]
testosterone 30 MG/1.5 ML solution in metered pump w/oneil
1 applic topical QPM
Patient Comments:
ON HOLD
L.acidoph, paracasei,B. lactis 1 EACH capsule
1 ea PO QPM
calcium citrate 200 MG tablet
200 mg PO QPM
Patient Comments:
spironolactone 25 mg tablet
12.5 mg PO QPM
cholecalciferol (vitamin D3) 50 mcg (2,000 unit) Tablet
50 mcg PO QPM
Jardiance 10 mg tablet
10 mg PO QPM
Discontinued
sulfamethoxazole-trimethoprim 800-160 mg tablet
1 tab PO BID
Discharge Orders:
Discharge Patient (As Directed); Ordered 10/12/23
Ordered By: Julius Nation
Discharge Date and Time
Print Language: [place]THER[place] IRISH
--- NOTE | 2023-10-12 11:12 | CM ---
Home no needs.
Plan; Home no needs.
[2023-10-12 11:26] VITALS: BP 124/70
[2023-10-12] MEDS: STERILE WATER FOR INJECTION IV (11:48)
[2023-10-12] MEDS: ROXICODONE 5 MG PO (11:48)
--- NOTE | 2023-10-12 12:01 | PTCARENOTE ---
Assumed care of pt from previous nurse. Pt with some discomfort to left foot, prn medication provided, will await effectiveness. Pt with positive pulse to left foot, dressing cdi. Pt call car is within reach, pt rings oneil. will cont to monitor.
--- NOTE | 2023-10-12 13:49 | W.PN.POD ---
Today's Communication
Today's Communication
Incision redressed left foot- follow up scheduled for saturday02/15/24
OK to Dc home from my standpoint
Assessment / Plan
-
H/o Foot deformity B/L
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
PAD
S/P resection of 1st met head and excision and repair of ulcer left foot
Achilles rupture left- Pt sought 2nd opinion at [facility]/ Dr Ursula Angeles and will be fit with charcot boot
Subjective
Chief Complaint
pod #3 s/p resected 1st met head and excision and repair of ulcer left foot
Subjective
denies pain, sob, f/c/n/m
Objective
Temp Pulse Resp BP Pulse Ox
98.1 F 73 16 124/70 98
10/12/23 11:26 10/12/23 11:26 10/12/23 11:26 10/12/23 11:26 10/12/23 11:26
10/11/23 07:13
10/12/23 06:56
Vital Signs and Lab results were reviewed.
Review of Systems
Review of Systems
Review of Systems: No Fever, No Chills, No Headache, No Nausea, No Diarrhea, No Joint Pain and No Skin Rash
Physical Exam
Physical Exam
General: Comfortable
Musculoskeletal: Edema, Left Lower Extrem (mild pedal edema) and Other (gap posterior achilles left secondary to rupture)
Skin: Warm, Dry and Other (incision is C/D/I w/o necrosis or drainage)
Neuro: Protective Sensation Diminished
[2023-10-12] MEDS: PREVNAR 20 0.5 ML IM (14:32)
== END 2023-10-12 15:25 | disposition home or self-care (01) | DRG 279 ==
LOC: 4 WEST ACU 18:27
PROVIDERS: Nurse Practitioner; ADMITTING PHYSICIAN Hospitalist; ATTENDING PHYSICIAN Family Medicine; CONSULT PHYSICIAN Podiatrist Foot & Ankle Surgery; CONSULT PHYSICIAN Specialist; EMERGENCY PHYSICIAN Student in an Organized Health Care Education/Training Program; FAMILY PHYSICIAN Internal Medicine; OTHER PHYSICIAN Student in an Organized Health Care Education/Training Program; OTHER PHYSICIAN Surgery Vascular Surgery
PROC: 0QBP0Z2 Excision of Left Metatarsal, Sesamoid Bone(s) 1st Toe, Open Approach (ICD-10-PCS; 2023-10-09)
PROC: B41C1ZZ Fluoroscopy of Pelvic Arteries using Low Osmolar Contrast (ICD-10-PCS; 2023-10-11)
PROC: B41G1ZZ Fluoroscopy of Left Lower Extremity Arteries using Low Osmolar Contrast (ICD-10-PCS; 2023-10-11)
PROC: 04FS3ZZ Fragmentation of Left Posterior Tibial Artery, Percutaneous Approach (ICD-10-PCS; 2023-10-11)
PROC: B4101ZZ Fluoroscopy of Abdominal Aorta using Low Osmolar Contrast (ICD-10-PCS; 2023-10-11)
PROC: 3E0234Z Introduction of Serum, Toxoid and Vaccine into Muscle, Percutaneous Approach (ICD-10-PCS; 2023-10-12)
DX: I70.202 Unspecified atherosclerosis of native arteries of extremities, left leg (principal); E87.1 Hypo-osmolality and hyponatremia; I13.0 Hypertensive heart and chronic kidney disease with heart failure and stage 1 through stage 4 chronic kidney disease, or unspecified chronic kidney disease; N17.9 Acute kidney failure, unspecified; E87.20 Acidosis, unspecified; N10 Acute pyelonephritis; L97.529 Non-pressure chronic ulcer of other part of left foot with unspecified severity; I25.10 Atherosclerotic heart disease of native coronary artery without angina pectoris; I50.9 Heart failure, unspecified; E78.00 Pure hypercholesterolemia, unspecified; E78.49 Other hyperlipidemia; K21.9 Gastro-esophageal reflux disease without esophagitis; I89.0 Lymphedema, not elsewhere classified; Q66.212 Congenital metatarsus primus varus, left foot; Q66.211 Congenital metatarsus primus varus, right foot; E11.621 Type 2 diabetes mellitus with foot ulcer; N18.31 Chronic kidney disease, stage 3a; E87.5 Hyperkalemia; M65.862 Other synovitis and tenosynovitis, left lower leg; S86.012A Strain of left Achilles tendon, initial encounter; X58.XXXA Exposure to other specified factors, initial encounter; Y93.9 Activity, unspecified; Y92.9 Unspecified place or not applicable; M19.90 Unspecified osteoarthritis, unspecified site; K59.00 Constipation, unspecified; Z96.652 Presence of left artificial knee joint; Z88.0 Allergy status to penicillin; Z79.82 Long term (current) use of aspirin; Z88.5 Allergy status to narcotic agent; Z23 Encounter for immunization
CPT/HCPCS: 88304; 88311; 73620; 75625; 75716; 76937; 80048; 80053; 80202; 81003; 81099; 82570; 82962; 83036; 83735; 84100; 84300; 85025; 85027; 85610; 87040; 87070; 87075; 87176; 87205; 90677; 96365; 96366; 96375; 97162; 99285; C1769; C1894; C9772; G0009; Q9967

== ENCOUNTER → 2023-11-21 13:40 | Outpatient (REF) | payer MEDICARE, BC, SELFPAY | LOC: DHVS 13:40 | PROVIDERS: ATTENDING PHYSICIAN Surgery Vascular Surgery; FAMILY PHYSICIAN Internal Medicine | DX: I73.9 Peripheral vascular disease, unspecified (principal) | CPT/HCPCS: 93922; 93925 ==

== ENCOUNTER 2023-12-02 09:16 | Outpatient (RCR) | payer MEDICARE, BC, SELFPAY | END 2023-12-02 23:59 | disposition home or self-care (01) | LOC: RPT 09:16 | PROVIDERS: ATTENDING PHYSICIAN Podiatrist Foot & Ankle Surgery; FAMILY PHYSICIAN Internal Medicine | DX: I89.0 Lymphedema, not elsewhere classified (principal) | CPT/HCPCS: 97162; 97535 ==

== ENCOUNTER → 2024-05-26 09:59 | Outpatient (REF) | payer MEDICARE, BC, SELFPAY | LOC: RAD 09:59 | PROVIDERS: ATTENDING PHYSICIAN Registered Nurse; FAMILY PHYSICIAN Internal Medicine | DX: I73.9 Peripheral vascular disease, unspecified (principal) | CPT/HCPCS: 93922; 93925 ==

== ENCOUNTER 2024-08-19 00:58 | Inpatient (IN) | payer MEDICARE, BC, SELFPAY ==
[2024-08-18] VITALS (8 sets, daily range): BP systolic 105–139; BP diastolic 66–99; BMI 32.5
--- NOTE | 2024-08-18 22:32 | ED.GENMED ---
History of Present Illness
General
Chief Complaint: Breathing Problem
Source: patient
Exam Limitations: none
Time Seen by Provider: 08/18/24 22:18
History of Present Illness
History of Present Illness:
See MDM
Past History
Past History
ED Past Medical History: CAD, CHF, GERD, HTN and Hypercholesterolemia
ED Past Surgical History: Orthopedic and Other (DEBI)
Social History
Tobacco: Non-smoker
Alcohol: None
Drug: None
Personal:
Living: with family
Employment: Employed
Phy Exam
Physical Exam
Physical Exam:
See MDM
Scores
Heart Failure Risk
Heart Failure Risk Score: Yes
History of Stroke or TIA: No
History of intubation for respiratory distress: No
Heart rate on ED arrival >/= 110: Yes
SaO2 <90% on arrival on room air: Yes
HR >/=110 during 3min walk test (or too ill to perform test): Yes
ECG has acute ischemic changes: No
Urea >/=12mmol/L (BUN 33.6mg/dL): Yes
Serum CO2>/=35mmol/L: No
Troponin I or T elevated to OR Level (0.4mg/dL): No
NT-proBNP >/=5,000ng/L (5,000pg/ml): Yes
HF Risk Score: 5
Admission Status: VERY HIGH RISK 39.8% Consider admission to hospital
Course
Orders/Labs/Results
Orders:
Orders
08/18/24 22:13
ECG [Electrocardiogram (*1)] Urgent
Reason for Study: Shortness of Breath
EKG- Treatment ONCE
08/18/24 22:29
Diltiazem 125 mg/125 ml Nss [Cardizem] 125 mg in 125 ml IV NOW
Initial dose in mg/hr, then titrate:: 5
Titrate to keep:: Heart rate 80-100 bpm
Titrate by mg/hr:: 5 mg/hr
Frequency of titrations (minutes):: 15
Maximum dose in mg/hr:: 15
Diltiazem HCl [Cardizem] 15 mg IV NOW STA
CR Chest Portable - 1 View Urgent
Comment:
Reason For Exam: SOB
Reason Study Needs to be Portable: Patient Unstable
08/18/24 22:34
Comprehensive Metabolic Panel Urgent
Magnesium Urgent
PTT Urgent
Prothrombin Time Urgent
TSH Reflex To Free T4 Urgent
08/18/24 22:35
Complete Blood Count/With Diff Urgent
NT-proBNP Urgent
Troponin I Urgent
08/18/24 23:33
Aspirin Chewable [Low Strength Aspirin] 324 mg PO NOW STA
Furosemide [Lasix] 40 mg IV ONCE ONE
Abnormal Lab Results
08/18/24 08/18/24
22:34 22:35
WBC 13.6 H 10^3/uL
(4.8-10.8)
RBC 4.63 L 10^6/uL
(4.70-6.10)
MCH 31.1 H pg
(27.0-31.0)
MPV 11.2 H fL
(7.4-10.4)
Abs Immat Gran (auto) 0.1 H 10^3/uL
(0-0.05)
Absolute Neuts (auto) 10.8 H 10^3/uL
(1.4-6.5)
Absolute Lymphs (auto) 1.0 L 10^3/uL
(1.2-3.4)
Absolute Monos (auto) 1.6 H 10^3/uL
(0.1-0.6)
Neutrophils % 79.8 H %
(42.2-75.2)
Lymphocytes % 7.5 L %
(20.5-51.1)
Monocytes % 11.6 H %
(1.7-9.3)
APTT 37.8 H Sec
(23.4-35.0)
BUN 36 H mg/dl
(9-20)
Creatinine 1.5 H mg/dL
(0.7-1.3)
Glucose 103 H mg/dl
(70-99)
Troponin I 0.062 H* ng/ml
08/18/24 22:35
08/18/24 22:34
Vital Signs
Initial and Last Documented VS:
Initial Vital Signs
Temp Pulse Resp BP Pulse Ox
99.2 F 145 20 139/99 96
08/18/24 22:15 08/18/24 22:15 08/18/24 22:15 08/18/24 22:15 08/18/24 22:15
Last Documented Vital Signs
Temp Pulse Resp BP Pulse Ox
99.2 F 72 21 105/78 97
08/18/24 22:15 08/18/24 23:15 08/18/24 23:15 08/18/24 23:00 08/18/24 23:15
MDM/Problems Addressed
Differential Diagnosis Includes:
HPI and MDM Narrative:
79-year-old male presenting with shortness of breath and fatigue that has progressed over the past few days. He looked on his Apple Watch that his heart rate was in the 140s. Patient denies prior history of A-fib. EKG shows concern for A-fib.
Patient does have a history of congestive heart failure. Will start on Cardizem drip and obtain chest x-ray. Will ultimately admit
Physical exam
General: Weak and fatigued
HEENT: protecting airway
Neck: appears supple
CV: No evidence of cyanosis. Tachycardic in the right
Resp: No accessory muscle use. Tachypnea
Abd: Non-distended
Extremities: +1 pitting edema bilateral lower extremities
Neuro: alert
Psych: Normal affect
Skin: Intact
Problems Addressed including Acute and Chronic Conditions affecting care:
1. New onset A-fib
Acuity: acute
Prognosis: unstable
Details: Will start Cardizem drip
2. Shortness of breath
Acuity: acute
Prognosis: stable
Details: Potentially in setting of CHF or potentially symptomatic A-fib. Will obtain chest x-ray
Updates
Patient rate controlled on Cardizem drip. Chest x-ray shows mild pulmonary edema. Will give IV Lasix. Patient has mild troponin elevation which is likely rate related. Will give dose of aspirin.
Differential Diagnosis (but not limited to): New onset A-fib, congestive heart failure, pulmonary edema
Testing considered: D-dimer
Drug therapy (if applicable): OTC meds, please see d/c instruction regarding Rx drugs
Amount and/or Complexity of Data Reviewed
Clinical info obtained from: Patient
External data reviewed: N/A
Labs I independently reviewed (but not limited to): Elevated troponin and BNP
Radiology: X-ray independently reviewed: Chest x-ray shows mild pulmonary edema
Pulse Ox: not hypoxic
EKG independently reviewed: A-fib with RVR, normal axis, no STEMI
Yard Switcher: A-fib RVR
Critical Care: The high probability of a clinically significant, sudden or life threatening deterioration of the cardiopulmonary system(s) required my full and direct attention, intervention and personal management. The aggregate critical care time
was 33 minutes. This time is in addition to time spent performing reported procedures but includes the following:
[x] Data Review and interpretation
[x] Patient assessment and monitoring of vital signs
[x] Documentation
[x] Medication orders and management
Risk of Complication:
Social Determinants of health: Good social support
Discussed with other providers: Hospitalist
Escalation of Care includes Admit/Obs: Given new onset A-fib and mild pulmonary edema, will admit
Occasional wrong word or 'sound a like' substitutions may have occurred due to the inherent limitations of voice recognition software. Read the chart carefully and recognize, using context, where substitutions have occurred.
*Critical Care Note
Total Time (30-74mins, 75-104mins- exclusive of procedures): 33 min
ED Attending Note
-
Portions of this chart may have been created with voice recognition software.� Occasional wrong word or��sound alike� substitutions may have occurred due to the inherent limitations of voice recognition software.
Discharge Plan
Departure
Patient Disposition: Admit
Date of Disposition: 08/18/24
Time of Disposition: 23:35
Admit to: Telemetry
Presentation/result/management discussed w/ accepting MD/DO: Hospitalist
Discharge Problem:
Atrial fibrillation, new onset, Pulmonary edema
Prescriptions:
No Action
furosemide 40 MG tablet
20 mg PO QPM
lisinopril 20 MG tablet
40 mg PO QPM
aspirin 81 MG tablet,delayed release (DR/EC)
81 mg PO QPM
carvedilol 3.125 MG tablet
3.125 mg PO BID
quinine sulfate 324 MG capsule
324 mg PO QPM
fish oil-dha-epa 1 EACH capsule
1 ea PO QPM
esomeprazole magnesium [Nexium 24HR] 20 MG tablet,delayed release (DR/EC)
20 mg PO DAILY
PreserVision AREDS-2 1 EACH capsule
2 ea PO QPM
oxycodone 5 MG tablet
5 mg PO BIDPRN PRN (Reason: moderate pain)
Patient Comments:
10/08/2023: last filled 10/06/21, 90 tabs for [facility] days from [facility]
testosterone 30 MG/1.5 ML solution in metered pump w/oneil
1 applic topical QPM
Patient Comments:
ON HOLD
L.acidoph,paracasei,B.animalis 1 EACH capsule
1 ea PO QPM
calcium citrate 200 MG tablet
200 mg PO QPM
Patient Comments:
spironolactone 25 mg tablet
12.5 mg PO QPM
cholecalciferol (vitamin D3) 50 mcg (2,000 unit) Tablet
50 mcg PO QPM
Jardiance 10 mg tablet
10 mg PO QPM
atorvastatin 40 mg Tablet
40 mg PO QPM 30 Days Qty: 30 0RF
polyethylene glycol 3350 17 gram/dose powder
17 g PO DAILY Qty: 510 0RF
Referrals:
Micah Bennett MD [Family Provider] -
Interventions
Interventions:
*Risk Screen - Suicide Last Done: 08/18/24 22:15
*General Assessment Last Done: 08/18/24 22:15
*Neglect/Abuse Screening Last Done: 08/18/24 22:15
*ED- Fall Risk Assessment Last Done: 08/18/24 22:15
*ED COVID-19 Vaccine History Last Done: 08/18/24 22:15
ED- Cardiac Assessment Last Done: 08/18/24 22:15
ED- Pulmonary Assessment Last Done: 08/18/24 22:15
Discharge Date and Time
Print Language: BARBADIAN
[2024-08-18 22:43] LABS: % Basophils 0.3 % (0-2); % Eosinophils 0.4 % (0-6); % Immature Granulocytes 0.4 % (0-0.5); % Lymphocytes 7.5 % (20.5-51.1); % Monocytes 11.6 % (1.7-9.3); % Neutrophils 79.8 % (42.2-75.2); Absolute Eosinophils 0.1 10^3/uL (0-0.7); Absolute Immature Granulocytes 0.1 10^3/uL (0-0.05); Absolute Monocytes 1.6 10^3/uL (0.1-0.6); Absolute Neutrophils 10.8 10^3/uL (1.4-6.5); Hemoglobin 14.4 g/dL (13.0-18.0); Mean Corp Hgb Conc. 33.5 g/dL (33.0-37.0); Mean Corpuscular Hgb 31.1 pg (27.0-31.0); Mean Corpuscular Volume 92.9 fL (80.0-94.0); Mean Platelet Volume 11.2 fL (7.4-10.4); Nucleated Red Blood Cells % 0 % (-); Platelet Count 154 10^3/uL (130-400); Red Blood Cell Count 4.63 10^6/uL (4.70-6.10); Red Cell Dist. Width 14.1 % (11.5-14.5); White Blood Cell Count 13.6 10^3/uL (4.8-10.8)
[2024-08-18] MEDS: CARDIZEM 125 IV (22:47)
[2024-08-18] MEDS: CARDIZEM 15 MG IV (22:47)
--- NOTE | 2024-08-18 22:50 | EDRN ---
cardizem infusing at 5mg/hr.
[2024-08-18 22:54] LABS: INR 1.04; PT 13.9 Sec (11.4-14.6)
[2024-08-18 22:55] LABS: APTT 37.8 Sec (23.4-35.0)
[2024-08-18 23:00] LABS: ALT (SGPT) 42 U/L (0-50); AST (SGOT) 35 U/L (17-59); Albumin 4.2 g/dl (3.5-5.0); Alkaline Phosphatase 104 U/L (38-126); Blood Urea Nitrogen 36 mg/dl (9-20); Calcium 9.2 mg/dl (8.4-10.2); Carbon Dioxide 23 mmol/L (22-30); Chloride 105 mmol/L (98-107); Estimated Creatinine Clearance 46 ml/min; Glucose 103 mg/dl (70-99); Magnesium 1.9 mg/dl (1.6-2.3); Potassium 4.5 mmol/L (3.5-5.1); Sodium 136 mmol/L (135-145); Total Protein 6.6 g/dl (6.3-8.2); eGFR 46.77
[2024-08-18 23:13] LABS: NT-proBNP 9360 pg/ml; Troponin I 0.062 ng/ml
[2024-08-18 23:32] LABS: TSH Reflex To Free T4 1.76 uIU/ml (0.47-4.68)
[2024-08-18] MEDS: LOW STRENGTH ASPIRIN 324 MG PO (23:41)
[2024-08-18] MEDS: LASIX 40 MG IV (23:42)
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
--- NOTE | 2024-08-18 23:52 | W.PN.UPDATE ---
Update Note
Progress Note Update
Patient seen in conjunction with PALEOLOGY TEACHER. I agree the findings and physical. I concur with assessment plan listed otherwise.
This is a 79-year-old with past medical history of congestive heart failure, CAD with recent catheter showing obstructed vessel that could not be intervened, EF of around 35%, hypertension, hyperlipidemia, GERD, PAD status post balloon lithotripsy
to the left distal posterior tibial artery and left lower extremity coaptation who presents to the emergency department with new onset atrial fibrillation.
Patient reports worsening shortness of breath for a few days. Tachycardic to the 140s on arrival in the emergency department. Unknown weight gain.
In the emergency department he was afebrile with a temp of 98.2, blood pressure was 114/74 pulse initially 140s now 94. He was satting 98% on room air. Chest x-ray shows increased pulmonary vascular congestion. ECG with A-fib with rapid
ventricular response and no acute ischemic changes. Troponin was 0.06. BNP was elevated over 9000.
White count 13.6 CBC otherwise unremarkable. Electrolytes are within normal range. BUN and creatinine were stable at 36 and 1.5 pointing from prior
Assessment and plan
79-year-old with peripheral arterial disease, CAD, hypertension, CHF presents to the emergency department with worsening shortness of breath dyspnea exertion over the last few days and found to be in new onset atrial fibrillation.
AFIB RVR -new onset atrial fibrillation with rapid ventricular response, no chest pain, with mild CHF exacerbation. Troponin elevated to 0.06 likely from demand ischemia
- Admit to IVU
- Started on diltiazem drip, currently rate controlled
- Definitely meets criteria for anticoagulation, will trend troponin if stable will start Eliquis
- Echo in AM. TSH pending
- Consult cardiology
CHF -increased pulmonary vascular congestion, shortness of breath and elevated BNP consistent with mild CHF exacerbation possibly secondary to uncontrolled atrial fibrillation
- Continue diuretics as tolerated by blood pressure. Will attempt Lasix 40 mg IV twice daily for now with hold parameters
- Rate control as above
- Previously on Coreg, adjust dose of Coreg vs metop succinate per cardiology, continue her ARNI/spironolactone
- Daily weights, ins and outs
CAD/PAD
- Aspirin/statin for now
DVT PPX - hep sq pending AC initiation
Code status - full code
[2024-08-19] VITALS (21 sets, daily range): BP systolic 91–122; BP diastolic 63–108; BMI 32.5; BMI 31.1
[2024-08-19 02:51] LABS: % Basophils 0.2 % (0-2); % Eosinophils 0.6 % (0-6); % Immature Granulocytes 0.6 % (0-0.5); % Lymphocytes 8.1 % (20.5-51.1); % Monocytes 10.2 % (1.7-9.3); % Neutrophils 80.3 % (42.2-75.2); Absolute Eosinophils 0.1 10^3/uL (0-0.7); Absolute Immature Granulocytes 0.1 10^3/uL (0-0.05); Absolute Lymphocytes 1.2 10^3/uL (1.2-3.4); Absolute Monocytes 1.5 10^3/uL (0.1-0.6); Absolute Neutrophils 11.5 10^3/uL (1.4-6.5); Hematocrit 44.7 % (39.0-52.0); Hemoglobin 14.9 g/dL (13.0-18.0); Mean Corp Hgb Conc. 33.3 g/dL (33.0-37.0); Mean Corpuscular Hgb 31.1 pg (27.0-31.0); Mean Corpuscular Volume 93.3 fL (80.0-94.0); Mean Platelet Volume 10.8 fL (7.4-10.4); Nucleated Red Blood Cells % 0 % (-); Platelet Count 163 10^3/uL (130-400); Red Blood Cell Count 4.79 10^6/uL (4.70-6.10); Red Cell Dist. Width 14.2 % (11.5-14.5); White Blood Cell Count 14.3 10^3/uL (4.8-10.8)
[2024-08-19 03:23] LABS: Troponin I 0.081 ng/ml
--- NOTE | 2024-08-19 03:27 | PTCARENOTE ---
Received care of patient from ED via stretcher into room 2250. at bedside. AAOx3 and b/l [place] and has bilateral hearing aids. Patient ambulated w/ stand by assist and has a personal single point cane. Tele monitor applied pt in Afib w/
occasional PVCs. HR in the 110's at rest. IV Cardizem gtt titrated up to 10mg/hr d/t elevated HR. BP 98/80, pt denies any dizziness. Patient requires x1 assist to stand at bedside when voiding in the urinal. HR fluctuates from 120-130's when
standing. Patient appears DEGROOT, lungs clear throughout and sating 96% RA. Denies any pain. B/l lower ext edema noted. See nursing assessment for further info. Patient aware of POC, call car within reach.
[2024-08-19 03:44] LABS: ALT (SGPT) 41 U/L (0-50); AST (SGOT) 31 U/L (17-59); Albumin 4.2 g/dl (3.5-5.0); Alkaline Phosphatase 102 U/L (38-126); Blood Urea Nitrogen 36 mg/dl (9-20); Calcium 9.4 mg/dl (8.4-10.2); Carbon Dioxide 24 mmol/L (22-30); Chloride 104 mmol/L (98-107); Estimated Creatinine Clearance 42 ml/min; Glucose 94 mg/dl (70-99); HDL Cholesterol 89 mg/dl; LDL Cholesterol, Calculated 32 mg/dl; Potassium 4.5 mmol/L (3.5-5.1); Sodium 139 mmol/L (135-145); Total Bilirubin 1.2 mg/dl (0.2-1.3); Total Cholesterol 130 mg/dl (50-199); Total Protein 6.7 g/dl (6.3-8.2); Triglyceride 47 mg/dl (10-149); Very Low Density Lipoprotein 9 mg/dl (0-30); eGFR 43.29
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
[2024-08-19] MEDS: ELIQUIS 5 MG PO ×2 (08:01→19:55)
[2024-08-19] MEDS: PROTONIX 40 MG PO (08:01)
[2024-08-19] MEDS: LASIX 40 MG IV (08:01)
[2024-08-19] MEDS: ENTRESTO 49 MG/51 MG PO (09:30)
--- NOTE | 2024-08-19 10:02 | CM ---
Pricemarni Guzman thru [facility] pharmacy. Est. cost of Eliquis x1 month supply is $116.15/mo.
--- NOTE | 2024-08-19 10:05 | W.PN.HOSP.TC ---
Today's Communication/Plan
-
Echocardiogram
Diuretics
Rate control
N.p.o. after midnight
Assessment / Plan
Assessment / Plan
Gen-AAOx3, NAD
HEENT-NC, AT, anicteric, clear oral mm
Neck-supple
CV-reg, no M, +S1/S2
Lungs-clear B/L
Abd-soft, NT, ND
Ext-1+ bilateral ankle edema
Musculoskeletal-no cyanosis, clubbing
Skin-warm and dry
Neuro-grossly non-focal
Psych-calm, cooperative
Rapid atrial flutter/fibrillation -new diagnosis. Currently on IV Cardizem for rate control. Toprol-XL started. Amiodarone started. Continue Eliquis. Cardiology input noted. N.p.o. after midnight for DIMA/cardioversion in the morning.
Acute on chronic heart failure with reduced EF -continue IV Lasix. Admission chest x-ray with mild pulmonary vascular congestion. Not requiring oxygen. Nonischemic cardiomyopathy. Echocardiogram pending. Apparently he had a recent cardiac
catheterization in March of this year at the [facility] that was without significant obstructive CAD.
Leukocytosis -looks well and nontoxic. Afebrile. Etiology unclear, monitor for now.
CKD 3A -suspect creatinine is at baseline. Monitor closely on diuretics.
Essential hypertension
Hyperlipidemia
PAD -s/p left lower extremity first metatarsal head resection September 2023.
History of near complete tear of left Achilles tendon�September 2023.
DEBI -on CPAP.
BPH
Obesity due to excess calories
Full code
updated at the bedside.
Anticipated Discharge: > 48 hours
Subjective/Interval History
-
Date of Service: August 19, 2024
Patient seen and examined. Shortness of breath improving. Denies chest pain or pressure.
Objective Data
-
Labs:
Laboratory Results
08/18/24 08/18/24 08/19/24
22:34 22:35 02:40
WBC 13.6 H 14.3 H
Hgb 14.4 14.9
Hct 43.0 44.7
Plt Count 154 163
PT 13.9
INR 1.04
APTT 37.8 H
Sodium 136 139
Potassium 4.5 4.5
Chloride 105 104
Carbon Dioxide 23 24
BUN 36 H 36 H
Creatinine 1.5 H 1.6 H
Glucose 103 H 94
Calcium 9.2 9.4
Total Bilirubin 1.0 1.2
AST 35 31
ALT 42 41
Alkaline Phosphatase 104 102
Vital Signs:
Vital Signs
Temp Pulse Resp BP Pulse Ox
98.4 F 132 20 94/79 95
08/19/24 08:03 08/19/24 09:30 08/19/24 08:03 08/19/24 09:30 08/19/24 08:03
I&O
08/18/24 08/19/24 08/20/24
06:59 06:59 06:59
Intake Total 45 / 45
Output Total 1949 / 1949 400 / 400
Balance -1905 / -1905 -400 / -400
Review of Systems
-
History Source: Patient
All other systems: Reviewed and negative
--- NOTE | 2024-08-19 10:24 | WOUNDNOTE ---
LEFT ANTERIOR LOWER LEG
--- NOTE | 2024-08-19 10:25 | WOUNDNOTE ---
LEFT LOWER EXTREMITY
[2024-08-19 10:30] LABS: Troponin I 0.059 ng/ml
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
[2024-08-19] MEDS: HYDROPHOR 1 APPLIC TOPICAL (15:51)
--- NOTE | 2024-08-19 16:00 | CM ---
CM following for DC planning needs.
Met w/ patient to complete initial assessment.
Pt. states that he resides w/ spouse in a private, 2 STH w/ elevator access.
Pt. is functionally indep. with ADLs and ambulates with use of a SPC.
Antic. DC plan is for home once medically stable without needs.
Did review anticipated cost of Eliquis. Pt. is aware and agreeable to cost. Encouraged pt. to speak with team regarding any financial concerns. He notes that he is RXed Jardiance and receives a tuan to pay for this medication. Additionally, he is
also on Entresto and is expecting to be enrolled in a similar program.
[2024-08-19] MEDS: VITAMIN D3 (cholecalciferol) 50 MCG PO (17:10)
[2024-08-19] MEDS: ALDACTONE 12.5 MG PO (17:10)
[2024-08-19] MEDS: VISBIOME 1 CAP PO (17:10)
[2024-08-19] MEDS: OCUVITE SOFTGEL 2 CAP PO (17:10)
[2024-08-19] MEDS: OSCAL CAL 500 500 MG PO (17:10)
[2024-08-19] MEDS: PACERONE 400 MG PO ×2 (17:11→22:32)
[2024-08-19] MEDS: FARXIGA 10 MG PO (17:11)
[2024-08-19] MEDS: CRESTOR 10 MG PO (17:16)
[2024-08-19] MEDS: ENTRESTO 49 MG/51 MG 1 TAB PO (17:21)
--- NOTE | 2024-08-19 17:32 | DOWNTIME ---
There was a [employer] Automatic Downtime on 08/19/2024 from 1230 to 08/19/2024 at 1550. Downtime documentation of patient's care, including medication administrations, has been reconciled in the electronic record per guidelines. Refer to the
patient's paper chart under the miscellaneous tab to see printed paper medication records and downtime forms.
--- NOTE | 2024-08-19 17:41 | PTCARENOTE ---
Patient is AO x3. A-fib 90-130's, trace edema, compression stockings from home on. No shortness of breath at rest, POX 95%. Using urinal at bedside with assistance. Cardizem gtt at 10mg/hr. Plan of care reviewed, call car in reach. at bedside.
--- NOTE | 2024-08-19 21:19 | PTCARENOTE ---
Rec'd pt at change of shift. Pt denies any pain or discomfort. Pt Afib on TELE monitor, VSS, and AAO*3. Cardizem infusing as ordered. Pt resting with call car in reach. See MAR and flowchart for full pt care and assessment.
[2024-08-19] MEDS: TOPROL XL 12.5 MG PO (22:32)
[2024-08-20] VITALS (13 sets, daily range): BP systolic 92–128; BP diastolic 57–88; PULSE 62; O2SAT 96; BMI 30.5
[2024-08-20] MEDS: CARDIZEM 125 IV (01:09)
--- NOTE | 2024-08-20 02:01 | PTCARENOTE ---
Pt NPO at midnight for possible DIMA/CV in AM.
[2024-08-20 03:18] LABS: % Basophils 0.3 % (0-2); % Eosinophils 0.9 % (0-6); % Immature Granulocytes 0.3 % (0-0.5); % Lymphocytes 5.7 % (20.5-51.1); % Monocytes 9.8 % (1.7-9.3); Absolute Eosinophils 0.1 10^3/uL (0-0.7); Absolute Lymphocytes 0.8 10^3/uL (1.2-3.4); Absolute Monocytes 1.3 10^3/uL (0.1-0.6); Absolute Neutrophils 10.8 10^3/uL (1.4-6.5); Hematocrit 41.1 % (39.0-52.0); Hemoglobin 13.7 g/dL (13.0-18.0); Mean Corp Hgb Conc. 33.3 g/dL (33.0-37.0); Mean Platelet Volume 11.2 fL (7.4-10.4); Nucleated Red Blood Cells % 0 % (-); Platelet Count 151 10^3/uL (130-400); Red Blood Cell Count 4.42 10^6/uL (4.70-6.10); Red Cell Dist. Width 14.1 % (11.5-14.5); White Blood Cell Count 13.1 10^3/uL (4.8-10.8)
[2024-08-20 03:38] LABS: ALT (SGPT) 32 U/L (0-50); AST (SGOT) 23 U/L (17-59); Albumin 3.7 g/dl (3.5-5.0); Alkaline Phosphatase 85 U/L (38-126); Blood Urea Nitrogen 36 mg/dl (9-20); Calcium 9.2 mg/dl (8.4-10.2); Carbon Dioxide 26 mmol/L (22-30); Chloride 103 mmol/L (98-107); Estimated Creatinine Clearance 42 ml/min; Glucose 113 mg/dl (70-99); Potassium 4.1 mmol/L (3.5-5.1); Sodium 137 mmol/L (135-145); Total Bilirubin 1.7 mg/dl (0.2-1.3); Total Protein 6.1 g/dl (6.3-8.2); eGFR 43.29
--- NOTE | 2024-08-20 04:43 | PTCARENOTE ---
Pt had 2.84 second pause on TELE monitor. Pt in Afib/Aflutter on tele monitor. Cardizem put on hold at this time. PT with bp at 100/57. EKG obtained to confirm HR. PATIENT SAFETY MANAGERVERENICE SaldanaYesi at bedside and aware of medication on hold. Pt denies any pain or
discomfort. Currently resting with call car in reach and plan of care ongoing.
[2024-08-20] MEDS: ELIQUIS 5 MG PO ×2 (07:28→20:35)
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
--- NOTE | 2024-08-20 08:25 | PTCARENOTE ---
Received pt at change of shift resting in bed. Report given to Brooke in the bed laborer this morning for DIMA/cardioversion. Pt NPO since midnight for procedure. A fib on the monitor. HR in the 100's. Eliquis administered per order--see MAR. Boggs
gtt stopped per maintenance technician 3rd shift RN. Pt ambulating in room with rw and standby assistance. pt currently in bed laborer.
--- NOTE | 2024-08-20 10:30 | PTCARENOTE ---
Received pt from catheterization laboratory technician post DIMA/cardioversion. pt AAOx3. denies any chest pain or SOB at this time. NSR on the monitor. Pt informed to use urinal for accurate I&O. Urinal provided. Pt verbalized understanding. call car within reach.
[2024-08-20] MEDS: LASIX 40 MG IV (10:42)
[2024-08-20] MEDS: ENTRESTO 49 MG/51 MG PO ×2 (10:42→18:15)
[2024-08-20] MEDS: PROTONIX 40 MG PO (10:44)
[2024-08-20] MEDS: PACERONE 400 MG PO ×3 (10:44→21:52)
[2024-08-20] MEDS: HYDROPHOR 1 APPLIC TOPICAL (12:26)
--- NOTE | 2024-08-20 12:51 | W.PN.HOSP.TC ---
Addendum entered and electronically signed by Bob Johnson DO 08/20/24 13:04:
Obtained baseline creatinine from his primary care doctor's office. It was 1.26 in March of this year.
Therefore we may be dealing with ODALYS on CKD stage II. Etiology of ODALYS could be due to cardiorenal syndrome from heart failure exacerbation and rapid atrial fibrillation.
Check bladder scan for completeness.
Recommend outpatient follow-up with PCP next week and recheck of his BMP at that point in time.
Discussed with patient and family.
Original Note:
Today's Communication/Plan
-
Continue current care
Assessment / Plan
Assessment / Plan
Gen-AAOx3, NAD
HEENT-NC, AT, anicteric, clear oral mm
Neck-supple
CV-reg, no M, +S1/S2
Lungs-clear B/L
Abd-soft, NT, ND
Ext-1+ bilateral ankle edema
Musculoskeletal-no cyanosis, clubbing
Skin-warm and dry
Neuro-grossly non-focal
Psych-calm, cooperative
Rapid atrial flutter/fibrillation -new diagnosis. Currently on IV Cardizem for rate control. Toprol-XL started. Amiodarone started. Continue Eliquis. Underwent successful DIMA guided cardioversion 08/20 to sinus rhythm.
Acute on chronic heart failure with reduced EF -improving clinically. Admission chest x-ray with mild pulmonary vascular congestion. Not requiring oxygen. Nonischemic cardiomyopathy. Apparently he had a recent cardiac catheterization in March
of this year at the [facility] that was without significant obstructive CAD.
Transthoracic echocardiogram showed LVEF 15 to 20%, mild concentric LVH, indeterminate diastolic function, mildly reduced RV systolic function, mild to moderate MR, mild , mild TR.
Leukocytosis -looks well and nontoxic. Afebrile. Etiology unclear, monitor for now. Clinically doubt sepsis.
CKD 3A -suspect creatinine is at baseline. Monitor closely on diuretics. Patient and family deny history of chronic kidney disease. In [employer]rogen [employer] Test he has had creatinines averaging in the 1.5 range for at least a few years.
I called his primary care doctor's office and spoke with the asphalt heater tender to get information. They took my phone number for a call back as his PCP is on vacation and there is someone covering. PCP is Dr. Micah Bennett, .
Essential hypertension -stable.
Hyperlipidemia -rosuvastatin.
PAD -s/p left lower extremity first metatarsal head resection September 2023.
History of near complete tear of left Achilles tendon�September 2023.
DEBI -on CPAP.
BPH
Obesity due to excess calories
Full code
Dispo -possible discharge tomorrow if cleared by cardiology.
updated at the bedside.
Anticipated Discharge: Within 24 hours
Subjective/Interval History
-
Date of Service: August 20, 2024
Patient seen and examined. No complaints.
Objective Data
-
Labs:
Laboratory Results
08/20/24
03:01
WBC 13.1 H
Hgb 13.7
Hct 41.1
Plt Count 151
Sodium 137
Potassium 4.1
Chloride 103
Carbon Dioxide 26
BUN 36 H
Creatinine 1.6 H
Glucose 113 H
Calcium 9.2
Total Bilirubin 1.7 H
AST 23
ALT 32
Alkaline Phosphatase 85
Vital Signs:
Vital Signs
Temp Pulse Resp BP Pulse Ox
97.9 F 68 20 111/71 96
08/20/24 11:36 08/20/24 11:36 08/20/24 11:36 08/20/24 11:36 08/20/24 11:36
I&O
08/19/24 08/20/24 08/21/24
06:59 06:59 06:59
Intake Total 45 / 45 480 / 480
Output Total 1950 / 1950 1450 / 1450 400 / 400
Balance -1905 / -1905 -970 / -970 -400 / -400
Review of Systems
-
History Source: Patient
All other systems: Reviewed and negative
--- NOTE | 2024-08-20 13:53 | PTCARENOTE ---
Pt voided 400 ml clear yellow urine, bladder scanned for 89 ml. PVR
[2024-08-20] MEDS: ALDACTONE 12.5 MG PO (18:01)
[2024-08-20] MEDS: VISBIOME 1 CAP PO (18:01)
[2024-08-20] MEDS: FARXIGA 10 MG PO (18:02)
[2024-08-20] MEDS: OCUVITE SOFTGEL 2 CAP PO (18:02)
[2024-08-20] MEDS: OSCAL CAL 500 500 MG PO (18:06)
[2024-08-20] MEDS: VITAMIN D3 (cholecalciferol) 50 MCG PO (18:07)
[2024-08-20] MEDS: CRESTOR 10 MG PO (18:11)
[2024-08-20] MEDS: TOPROL XL 12.5 MG PO (21:52)
[2024-08-21] VITALS (11 sets, daily range): BP systolic 94–125; BP diastolic 59–80; PULSE 61; O2SAT 97; BMI 30.4
--- NOTE | 2024-08-21 01:41 | PTCARENOTE ---
Assumed care on pt at 1900, aaox3, denies c/o pain or SOB. SR on the monitor with HR 60's. BP 110/80's. Voiding on urinal at bedside w/o issues. Pt refused to remove compression stocking off at bed time. Fall risk precautions in place, call car
within reach, pt advised to call for assistance.
[2024-08-21 04:25] LABS: % Basophils 0.3 % (0-2); % Eosinophils 1.7 % (0-6); % Immature Granulocytes 0.6 % (0-0.5); % Lymphocytes 6.4 % (20.5-51.1); % Monocytes 10.3 % (1.7-9.3); % Neutrophils 80.7 % (42.2-75.2); Absolute Eosinophils 0.2 10^3/uL (0-0.7); Absolute Immature Granulocytes 0.1 10^3/uL (0-0.05); Absolute Lymphocytes 0.8 10^3/uL (1.2-3.4); Absolute Monocytes 1.2 10^3/uL (0.1-0.6); Absolute Neutrophils 9.6 10^3/uL (1.4-6.5); Hematocrit 42.3 % (39.0-52.0); Hemoglobin 14.1 g/dL (13.0-18.0); Mean Corp Hgb Conc. 33.3 g/dL (33.0-37.0); Mean Corpuscular Hgb 31.1 pg (27.0-31.0); Mean Corpuscular Volume 93.4 fL (80.0-94.0); Mean Platelet Volume 11.2 fL (7.4-10.4); Nucleated Red Blood Cells % 0 % (-); Platelet Count 170 10^3/uL (130-400); Red Blood Cell Count 4.53 10^6/uL (4.70-6.10); Red Cell Dist. Width 13.9 % (11.5-14.5); White Blood Cell Count 11.9 10^3/uL (4.8-10.8)
[2024-08-21 04:51] LABS: ALT (SGPT) 33 U/L (0-50); AST (SGOT) 26 U/L (17-59); Albumin 3.7 g/dl (3.5-5.0); Alkaline Phosphatase 95 U/L (38-126); Blood Urea Nitrogen 44 mg/dl (9-20); Calcium 9.3 mg/dl (8.4-10.2); Carbon Dioxide 26 mmol/L (22-30); Chloride 103 mmol/L (98-107); Estimated Creatinine Clearance 39 ml/min; Glucose 113 mg/dl (70-99); Potassium 4.3 mmol/L (3.5-5.1); Sodium 135 mmol/L (135-145); Total Bilirubin 1.3 mg/dl (0.2-1.3); Total Protein 6.2 g/dl (6.3-8.2); eGFR 40.25
[2024-08-21] MEDS: ENTRESTO 49 MG/51 MG 1 TAB PO (08:28)
[2024-08-21] MEDS: ELIQUIS 5 MG PO (08:29)
[2024-08-21] MEDS: PACERONE 400 MG PO (08:29)
[2024-08-21] MEDS: LASIX 40 MG IV (08:30)
[2024-08-21] MEDS: PROTONIX 40 MG PO (08:30)
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
--- NOTE | 2024-08-21 09:47 | W.PN.HOSP.TC ---
Today's Communication/Plan
-
Check urine
Renal/bladder ultrasound
Nephrology consult
Assessment / Plan
Assessment / Plan
Gen-AAOx3, NAD
HEENT-NC, AT, anicteric, clear oral mm
Neck-supple
CV-reg, no M, +S1/S2
Lungs-clear B/L
Abd-soft, NT, ND
Ext-1+ bilateral ankle edema
Musculoskeletal-no cyanosis, clubbing
Skin-warm and dry
Neuro-grossly non-focal
Psych-calm, cooperative
Rapid atrial flutter/fibrillation -new diagnosis. Now rate controlled. Off IV Cardizem. Toprol-XL started. Amiodarone started. Continue Eliquis. Underwent successful DIMA guided cardioversion 08/20 to sinus rhythm.
Acute on chronic heart failure with reduced EF -improving clinically. Admission chest x-ray with mild pulmonary vascular congestion. Not requiring oxygen. Nonischemic cardiomyopathy. Apparently he had a recent cardiac catheterization in March
of this year at the [facility] that was without significant obstructive CAD.
Transthoracic echocardiogram showed LVEF 15 to 20%, mild concentric LVH, indeterminate diastolic function, mildly reduced RV systolic function, mild to moderate MR, mild , mild TR.
Leukocytosis -looks well and nontoxic. Afebrile. Etiology unclear, monitor for now. Clinically doubt sepsis.
ODALYS on CKD 2 -baseline creatinine 1.2 in March of this year. Information obtained from PCP office. PCP is Dr. Micah Bennett, .
Creatinine now rising, 1.7 today. Admission creatinine 1.5. No retention on bladder scan. Check renal/bladder ultrasound. Consult nephrology. Check urine. Differential diagnosis of cardiorenal syndrome versus diuretic induced ODALYS versus other.
Essential hypertension -stable.
Hyperlipidemia -rosuvastatin.
PAD -s/p left lower extremity first metatarsal head resection September 2023.
History of near complete tear of left Achilles tendon�September 2023.
DEBI -on CPAP.
BPH
Obesity due to excess calories
Full code
updated on the phone.
Anticipated Discharge: 24 - 48 hours
Subjective/Interval History
-
Date of Service: August 21, 2024
Patient seen and examined. Brief episode of orthopnea last night that resolved. Currently without complaints.
Objective Data
-
Labs:
Laboratory Results
08/21/24
04:10
WBC 11.9 H
Hgb 14.1
Hct 42.3
Plt Count 170
Sodium 135
Potassium 4.3
Chloride 103
Carbon Dioxide 26
BUN 44 H
Creatinine 1.7 H
Glucose 113 H
Calcium 9.3
Total Bilirubin 1.3
AST 26
ALT 33
Alkaline Phosphatase 95
Vital Signs:
Vital Signs
Temp Pulse Resp BP Pulse Ox
98.5 F 69 16 114/80 95
08/21/24 08:20 08/21/24 08:28 08/21/24 08:20 08/21/24 08:28 08/21/24 08:20
I&O
08/20/24 08/21/24 08/22/24
06:59 06:59 06:59
Intake Total 480 / 480 720 / 720
Output Total 1450 / 1450 1900 / 1900
Balance -970 / -970 -1180 / -1180
Review of Systems
-
History Source: Patient
All other systems: Reviewed and negative
--- NOTE | 2024-08-21 10:47 | PTCARENOTE ---
Pt sent for renal US as ordered this am. He denies pain, had c/o SOB last night but he denies that this morning. VSS. Order for Pt to shower obtained from Dr Johnson, at Pt's request. Pt ambulating in room with walker and supervision, he is OOb in
chair presently.
[2024-08-21 11:22] LABS: NT-proBNP 2830 pg/ml
--- NOTE | 2024-08-21 11:52 | CM ---
Addendum entered by ITALO Green 08/21/24 12:16:
[facility] able to accept.
Plan-home w/ [facility]
Original Note:
CM following for DC planning needs.
Met w/ patient at bedside.
We reviewed anticipated DC and DC plans. Offered VN, patient would agree to VN. Referral made to VN, awaiting response.
Plan is for home w/ [facility], if accepted.
[2024-08-21] MEDS: HYDROPHOR 1 APPLIC TOPICAL (11:57)
--- NOTE | 2024-08-21 12:36 | W.CON.NEPH ---
Consultation
-
Date/Time Consultation Requested: August 21, 2024 at 10 AM
Date/Time Consultation Performed: August 21, 2024 at 12:30 PM
Requesting Provider: Dr. Johnson
Performing Provider: Dr. Kc
Reason for Consultation: Acute on chronic kidney disease
Medical History
-
Chief Complaint: Left foot osteomyelitis
History of Present Illness:
79-year-old man with nonischemic cardiomyopathy followed by Dr. Rodríguez Brito at the [facility], baseline EF 30-40% presents with shortness of breath and found to be in new onset A-fib/a flutter.
Additional past medical history includes nonischemic cardiomyopathy as above, EF 35% December 2023, hypertension, GERD, hyperlipidemia, history of CAD, obstructive sleep apnea, PAD status post amputation of left first metatarsal 2023, sensorineural
deafness, DJD, peripheral neuropathy
Renal consult for acute on chronic kidney disease creatinine 1.7 with baseline creatinine 1.2.
He is status post cardioversion. Echocardiogram showed decreased ejection fraction 10 to 15%.
He had 10 pound weight gain over 5 days.
Past Medical History
Coronary artery disease, hypertension, heart failure unknown ejection fraction, hyperlipidemia, GERD, CKD 3A
Left total knee replacement
Social History
Tobacco: Non-Smoker
Alcohol: Daily
Family History
Family History: Not Pertinent
Allergies / Home Medications
Allergy/AdvReac Type Severity Reaction Status Date / Time
honey (From MediHoney Allergy Rash Verified 10/09/23 08:28
(honey))
morphine Allergy Unknown Verified 10/08/23 15:30
Penicillins Allergy Hives Verified 10/09/23 10:48
sulfamethoxazole (From Allergy AIN Verified 10/10/23 15:33
Bactrim)
trimethoprim (From Bactrim) Allergy AIN Verified 10/10/23 15:33
quinine AdvReac AIN Verified 10/10/23 15:33
�Medication �Instructions �Recorded �Confirmed �Type
aspirin 81 mg tablet,delayed 81 mg PO QPM Blood clot 04/18/19 08/20/24 History
release prevention/tx
esomeprazole magnesium 20 mg 20 mg PO DAILY Gastrointestinal 04/18/19 08/19/24 History
tablet,delayed release (Nexium issue
24HR)
fish oil-dha-epa 1,200 mg-144 1 ea PO QPM Supplement 04/18/19 08/19/24 History
mg-216 mg capsule
furosemide 40 mg tablet 20 mg PO QPM Fluid 04/18/19 08/20/24 History
retention/Swelling
quinine sulfate 324 mg capsule 324 mg PO QPM cramps 04/18/19 08/19/24 History
vit C 250 mg-vit E 90 mg-zinc 40 2 ea PO QPM Supplement 04/18/19 08/19/24 History
mg-copper 1 [id number]
capsule (PreserVision AREDS-2)
L.acidoph,paracasei,B.animalis 10 1 ea PO QPM Gastrointestinal issue 04/23/19 08/20/24 History
billion cell capsule
calcium citrate 200 mg PO QPM Supplement 04/23/19 08/19/24 History
oxycodone 5 mg tablet 15 mg PO DAILYPRN PRN moderate pain 04/23/19 08/19/24 History
testosterone 30 mg/actuation (1.5 1 applic topical DAILY@07 hormone 04/23/19 08/19/24 History
mL) transderm solution metered pump replacement
cholecalciferol (vitamin D3) 50 50 mcg PO QPM Supplement 10/08/23 08/19/24 History
mcg (2,000 unit) tablet
empagliflozin 10 mg tablet 10 mg PO QPM Diabetes 10/08/23 08/20/24 History
(Jardiance)
spironolactone 25 mg tablet 12.5 mg PO QPM Blood Pressure 10/08/23 08/19/24 History
Entresto 1 tab PO BID@,08/19/24 08/19/24 History
metoprolol tartrate 12.5 mg PO DAILY@08/19/24 08/19/24 History
rosuvastatin 10 mg tablet (Crestor) 10 mg PO DAILY@08/19/24 08/19/24 History
Review of Systems
-
No shortness of breath or chest pain
All other systems: Negative unless noted
Physical Exam
Vital Signs
Vital Signs
Temp Pulse Resp BP Pulse Ox
98.5 F 65 16 114/80 95
08/21/24 08:20 08/21/24 10:00 08/21/24 08:20 08/21/24 08:28 08/21/24 08:20
Lab Results
WBC 11.9 10^3/uL (4.8-10.8) H 08/21/24 04:10
RBC 4.53 10^6/uL (4.70-6.10) L 08/21/24 04:10
Hgb 14.1 g/dL (13.0-18.0) 08/21/24 04:10
Hct 42.3 % (39.0-52.0) 08/21/24 04:10
Plt Count 170 10^3/uL (130-400) 08/21/24 04:10
Sodium 135 mmol/L (135-145) 08/21/24 04:10
Potassium 4.3 mmol/L (3.5-5.1) 08/21/24 04:10
Chloride 103 mmol/L (98-107) 08/21/24 04:10
Carbon Dioxide 26 mmol/L (22-30) 08/21/24 04:10
BUN 44 mg/dl (9-20) H 08/21/24 04:10
Creatinine 1.7 mg/dL (0.7-1.3) H 08/21/24 04:10
eGFR 40.25 08/21/24 04:10
Glucose 113 mg/dl (70-99) H 08/21/24 04:10
Calcium 9.3 mg/dl (8.4-10.2) 08/21/24 04:10
Bhw-O-Mzfspstemwa Pept 2830 pg/ml 08/21/24 04:10
Albumin 3.7 g/dl (3.5-5.0) 08/21/24 04:10
Physical Exam
General no acute distress
HEENT no cephalic atraumatic extraocular muscle intact no scleral icterus no JVD neck supple
lungs clear to auscultation bilateral
heart regular S1-S2 positive
abdomen soft nontender positive bowel sounds
extremities no edema pulses present bilateral
Neurologically nonfocal alert and oriented x 3
Skin no lesions no abrasions no petechiae
Psych normal affect no bizarre behavior
Data Reviewed
-
Radiology: Image Personally Visualized and interpreted
Ultrasound: Image Personally Visualized and interpreted (Renal ultrasound showed no obstructive uropathy and medical renal disease)
Labs: Labs Reviewed by me, Discussed with Patient and Discussed with Family
Assessment/Plan
-
79-year-old man with nonischemic cardiomyopathy followed by Dr. Rodríguez Brito at the [facility], baseline EF 30-40% presents with shortness of breath and found to be in new onset A-fib/a flutter.
Additional past medical history includes nonischemic cardiomyopathy as above, EF 35% December 2023, hypertension, GERD, hyperlipidemia, history of CAD, obstructive sleep apnea, PAD status post amputation of left first metatarsal 2023, sensorineural
deafness, DJD, peripheral neuropathy
Renal consult for acute on chronic kidney disease creatinine 1.7 with baseline creatinine 1.2.
He is status post cardioversion. Echocardiogram showed decreased ejection fraction 10 to 15%.
He had 10 pound weight gain over 5 days.
Assessment
ODALYS on chronic kidney disease baseline creatinine 1.2
Atrial fibrillation with RVR.
CHF with ejection fraction 30 to 35% previously with new echo showing 10 to 15% in the setting of rapid ventricular response
Hypertension
History of left foot osteomyelitis
CKD 3A, 1.3
Plan
Acuity secondary to hemodynamics
Okay with continue diuresis
Renal dose all medications appropriate for GFR
Sodium restriction 2 g
Continue with Entresto, SGLT2 inhibitor and spironolactone unless we see a significant rise in creatinine.
A.m. labs
[2024-08-21 15:16] LABS: Urine Albumin Negative (Neg - Trace); Urine Bilirubin Negative (Negative); Urine Character Clear (Clear); Urine Color Yellow; Urine Glucose 4+ (Negative); Urine Ketone Negative (Negative); Urine Leukocyte Negative (Negative); Urine Nitrite Negative (Negative); Urine Occult Blood 1+ (Negative); Urine Urobilinogen Negative (Neg - 1+)
[2024-08-21 15:24] LABS: Urine Squamous Cell 0-2 /LPF (Few)
[2024-08-21 15:25] LABS: Urine Bacteria Few (Negative); Urine Red Blood Cell 0-2 /HPF (0-2); Urine White Cell 0-2 /HPF (0-5)
[2024-08-21 15:37] LABS: Urine Sodium 58 mmol/L (30-90)
[2024-08-21] MEDS: ENTRESTO 49 MG/51 MG PO (16:44)
[2024-08-21] MEDS: OCUVITE SOFTGEL 2 CAP PO (17:00)
[2024-08-21] MEDS: OSCAL CAL 500 500 MG PO (17:00)
[2024-08-21] MEDS: FARXIGA 10 MG PO (17:01)
[2024-08-21] MEDS: VISBIOME 1 CAP PO (17:01)
[2024-08-21] MEDS: VITAMIN D3 (cholecalciferol) 50 MCG PO (17:01)
[2024-08-21] MEDS: ALDACTONE 12.5 MG PO (17:02)
[2024-08-21] MEDS: CRESTOR 10 MG PO (17:08)
[2024-08-21] MEDS: PACERONE PO (17:08)
--- NOTE | 2024-08-21 18:23 | PTCARENOTE ---
Pt Bp 98/63 this evening, HR 52, Amiodarone 400 mg po not given, Urszula Steven aware. Pt showered earlier this afternoon, lamberto well.
[2024-08-21] MEDS: PACERONE 200 MG PO (19:51)
[2024-08-21] MEDS: ELIQUIS 2.5 MG PO (19:51)
[2024-08-21] MEDS: TOPROL XL PO (23:01)
--- NOTE | 2024-08-22 00:58 | PTCARENOTE ---
Tele remains Sinus christin w/ occasional PVCs. HR in the 50's and occasional drops to the 40's briefly. Patient asymptomatic, and laying in bed. Pt denies any pain or discomfort. BP stable, and sating 94-97% RA. Denies any SOB. SBc LANDFILL ATTENDANT made
aware, and instructed RN to hold HS dose of Toprol XL 12.5mg. Call car in reach.
[2024-08-22 04:29] VITALS: BP 119/75
[2024-08-22 05:00] LABS: % Basophils 1.1 % (0-2); % Eosinophils 4.7 % (0-6); % Immature Granulocytes 0.6 % (0-0.5); % Lymphocytes 12.8 % (20.5-51.1); % Monocytes 10.2 % (1.7-9.3); % Neutrophils 70.6 % (42.2-75.2); Absolute Basophils 0.1 10^3/uL (0-0.2); Absolute Eosinophils 0.3 10^3/uL (0-0.7); Absolute Lymphocytes 0.9 10^3/uL (1.2-3.4); Absolute Monocytes 0.7 10^3/uL (0.1-0.6); Hematocrit 44.2 % (39.0-52.0); Hemoglobin 15.3 g/dL (13.0-18.0); Mean Corp Hgb Conc. 34.6 g/dL (33.0-37.0); Mean Corpuscular Hgb 31.5 pg (27.0-31.0); Mean Corpuscular Volume 90.9 fL (80.0-94.0); Mean Platelet Volume 10.7 fL (7.4-10.4); Nucleated Red Blood Cells % 0 % (-); Platelet Count 190 10^3/uL (130-400); Red Blood Cell Count 4.86 10^6/uL (4.70-6.10); Red Cell Dist. Width 13.7 % (11.5-14.5); White Blood Cell Count 7.1 10^3/uL (4.8-10.8)
[2024-08-22 05:21] LABS: ALT (SGPT) 53 U/L (0-50); AST (SGOT) 42 U/L (17-59); Albumin 3.5 g/dl (3.5-5.0); Alkaline Phosphatase 91 U/L (38-126); Blood Urea Nitrogen 43 mg/dl (9-20); Calcium 9.5 mg/dl (8.4-10.2); Carbon Dioxide 29 mmol/L (22-30); Chloride 103 mmol/L (98-107); Estimated Creatinine Clearance 44 ml/min; Glucose 105 mg/dl (70-99); Potassium 4.3 mmol/L (3.5-5.1); Sodium 136 mmol/L (135-145); Total Bilirubin 1.2 mg/dl (0.2-1.3); Total Protein 6.2 g/dl (6.3-8.2); eGFR 46.77
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
[2024-08-22 08:25] VITALS: BP 125/80
[2024-08-22] MEDS: PROTONIX 40 MG PO (08:32)
[2024-08-22] MEDS: PACERONE 200 MG PO (08:32)
[2024-08-22] MEDS: LASIX 40 MG PO (08:32)
[2024-08-22] MEDS: ELIQUIS 2.5 MG PO (08:33)
[2024-08-22] MEDS: ENTRESTO 49 MG/51 MG 1 TAB PO (09:05)
--- NOTE | 2024-08-22 09:24 | W.PN.HOSP.TC ---
Today's Communication/Plan
-
Discharge
Assessment / Plan
Assessment / Plan
Gen-AAOx3, NAD
HEENT-NC, AT, anicteric, clear oral mm
Neck-supple
CV-reg, no M, +S1/S2
Lungs-clear B/L
Abd-soft, NT, ND
Ext-1+ bilateral ankle edema
Musculoskeletal-no cyanosis, clubbing
Skin-warm and dry
Neuro-grossly non-focal
Psych-calm, cooperative
Rapid atrial flutter/fibrillation -new diagnosis. Now rate controlled. Off IV Cardizem. Toprol-XL started. Amiodarone started. Continue Eliquis. Underwent successful DIMA guided cardioversion 08/20 to sinus rhythm.
Acute on chronic heart failure with reduced EF -improving clinically. Admission chest x-ray with mild pulmonary vascular congestion. Not requiring oxygen. Nonischemic cardiomyopathy. Apparently he had a recent cardiac catheterization in March
of this year at the [facility] that was without significant obstructive CAD.
Transthoracic echocardiogram showed LVEF 15 to 20%, mild concentric LVH, indeterminate diastolic function, mildly reduced RV systolic function, mild to moderate MR, mild , mild TR.
Leukocytosis -looks well and nontoxic. Afebrile. Etiology unclear, monitor for now. Clinically doubt sepsis. Leukocytosis resolved.
ODALYS on CKD 2 -baseline creatinine 1.2 in March of this year. Information obtained from PCP office. PCP is Dr. Micah Bennett, .
Creatinine improved overnight, 1.5. Admission creatinine 1.5. No retention on bladder scan. Appreciate nephrology input. Check BMP in 1 week. Renal ultrasound with chronic medical disease, small cysts, no hydronephrosis.
Essential hypertension -stable.
Hyperlipidemia -rosuvastatin.
PAD -s/p left lower extremity first metatarsal head resection September 2023.
History of near complete tear of left Achilles tendon�September 2023.
DEBI -on CPAP.
BPH
Obesity due to excess calories
Full code
Dispo -medically stable for discharge home today. Outpatient follow-up.
32 minutes spent in discharge process.
updated on the phone.
Anticipated Discharge: Today
Subjective/Interval History
-
Date of Service: August 22, 2024
Patient seen and examined. No complaints.
Objective Data
-
Labs:
Laboratory Results
08/22/24
04:40
WBC 7.1
Hgb 15.3
Hct 44.2
Plt Count 190
Sodium 136
Potassium 4.3
Chloride 103
Carbon Dioxide 29
BUN 43 H
Creatinine 1.5 H
Glucose 105 H
Calcium 9.5
Total Bilirubin 1.2
AST 42
ALT 53 H
Alkaline Phosphatase 91
Vital Signs:
Vital Signs
Temp Pulse Resp BP Pulse Ox
97.5 F 81 18 125/80 95
08/22/24 04:30 08/22/24 09:05 08/22/24 04:30 08/22/24 09:05 08/22/24 04:30
I&O
08/21/24 08/22/24 08/23/24
06:59 06:59 06:59
Intake Total 720 / 720 240 / 240
Output Total 1900 / 1900 800 / 800
Balance -1180 / -1180 -560 / -560
Review of Systems
-
History Source: Patient
All other systems: Reviewed and negative
--- NOTE | 2024-08-22 09:30 | W.DS.TRANS ---
DC Summary - Card Cutter
-
Discharge Instructions:
Discharge Diagnosis/Procedures Rapid atrial fibrillation, acute heart failure
exacerbation, acute kidney injury, chronic
kidney disease
Diet 2 Gram Sodium,Restrict fluids to 48 oz
Activity No strenuous activity
Driving Restrictions No driving for 24 hours
Bathing Restrictions None
Blood Work BMP in 1 week
Other Services VN
Specialty Instructions Weigh Daily
Instructions: *PCP/Other Chalk Extruding Machine Operator Heart Failure Instructions
Stand-Alone Forms:
Changes to Home Medications: No
Discharge Medications:
DC Medications w/original date entered in [employer]
esomeprazole magnesium 20 mg tablet,delayed release (Nexium 24HR) 20 mg PO DAILY Gastrointestinal issue 04/18/19
fish oil-dha-epa 1,200 mg-144 mg-216 mg capsule 1 ea PO QPM Supplement 04/18/19
vit C 250 mg-vit E 90 mg-zinc 40 mg-copper 1 [id number] capsule (PreserVision AREDS-2) 2 ea PO QPM Supplement 04/18/19
L.acidoph,paracasei,B.animalis 10 billion cell capsule 1 ea PO QPM Gastrointestinal issue 04/23/19
calcium citrate 200 mg PO QPM Supplement 04/23/19
testosterone 30 mg/actuation (1.5 mL) transderm solution metered pump 1 applic topical DAILY@07 hormone replacement 04/23/19
cholecalciferol (vitamin D3) 50 mcg (2,000 unit) tablet 50 mcg PO QPM Supplement 10/08/23
empagliflozin 10 mg tablet (Jardiance) 10 mg PO QPM Diabetes 10/08/23
spironolactone 25 mg tablet 12.5 mg PO QPM Blood Pressure 10/08/23
rosuvastatin 10 mg tablet (Crestor) 10 mg PO DAILY@17 08/19/24
amiodarone 200 mg tablet 200 mg PO BID Arrhythmia #60 tabs 08/22/24
amiodarone 200 mg tablet 200 mg PO DAILY Arrhythmia #30 tabs 08/22/24
apixaban 2.5 mg tablet (Eliquis) 2.5 mg PO BID Blood clot prevention/tx #60 tabs 08/22/24
furosemide 40 mg tablet 40 mg PO DAILY Heart Failure #30 tabs 08/22/24
metoprolol succinate 25 mg tablet,extended release 24 hr 12.5 mg (1/2 x 25 mg) PO HS Heart Failure #30 tabs 08/22/24
sacubitril 49 mg-valsartan 51 mg tablet (Entresto) 1 tab PO BID@08,17 Heart Failure #60 tabs 08/22/24
Home Medication Changes
Pending Results: No
--- NOTE | 2024-08-22 10:23 | W.PN.NEPH.PH ---
Today's Communication / Plan
-
Okay for discharge from renal standpoint follow-up in 2 to 4 weeks
Assessment/Plan
-
79-year-old man with nonischemic cardiomyopathy followed by Dr. Rodríguez Brito at the [facility], baseline EF 30-40% presents with shortness of breath and found to be in new onset A-fib/a flutter.
Additional past medical history includes nonischemic cardiomyopathy as above, EF 35% December 2023, hypertension, GERD, hyperlipidemia, history of CAD, obstructive sleep apnea, PAD status post amputation of left first metatarsal 2023, sensorineural
deafness, DJD, peripheral neuropathy
Renal consult for acute on chronic kidney disease creatinine 1.7 with baseline creatinine 1.2.
He is status post cardioversion. Echocardiogram showed decreased ejection fraction 10 to 15%.
He had 10 pound weight gain over 5 days.
Assessment
ODALYS on chronic kidney disease baseline creatinine 1.2
Atrial fibrillation with RVR.
CHF with ejection fraction 30 to 35% previously with new echo showing 10 to 15% in the setting of rapid ventricular response
Hypertension
History of left foot osteomyelitis
CKD 3A, 1.3
Plan
Acuity secondary to hemodynamics
Okay with continue diuresis
Renal dose all medications appropriate for GFR
Sodium restriction 2 g
Continue with Entresto, SGLT2 inhibitor and spironolactone unless we see a significant rise in creatinine.
Okay for discharge from renal standpoint
-
-
Date of Service: August 22, 2024
CC / HPI / ROS
-
No chest pain or shortness of breath
Labs
-
Labs:
WBC 7.1 10^3/uL (4.8-10.8) 08/22/24 04:40
RBC 4.86 10^6/uL (4.70-6.10) 08/22/24 04:40
Hgb 15.3 g/dL (13.0-18.0) 08/22/24 04:40
Hct 44.2 % (39.0-52.0) 08/22/24 04:40
Plt Count 190 10^3/uL (130-400) 08/22/24 04:40
Sodium 136 mmol/L (135-145) 08/22/24 04:40
Potassium 4.3 mmol/L (3.5-5.1) 08/22/24 04:40
Chloride 103 mmol/L (98-107) 08/22/24 04:40
Carbon Dioxide 29 mmol/L (22-30) 08/22/24 04:40
BUN 43 mg/dl (9-20) H 08/22/24 04:40
Creatinine 1.5 mg/dL (0.7-1.3) H 08/22/24 04:40
eGFR 46.77 08/22/24 04:40
Glucose 105 mg/dl (70-99) H 08/22/24 04:40
Calcium 9.5 mg/dl (8.4-10.2) 08/22/24 04:40
Yqq-A-Matcgjlgjdt Pept 2830 pg/ml 08/21/24 04:10
Albumin 3.5 g/dl (3.5-5.0) 08/22/24 04:40
Physical Exam
-
Vital Signs:
Vital Signs
Temp Pulse Resp BP Pulse Ox
97.7 F 81 18 125/80 96
08/22/24 08:25 08/22/24 09:05 08/22/24 08:25 08/22/24 09:05 08/22/24 08:25
Cardiovascular:: Regular rate and rhythm
Respiratory:: Bilateral: CTA
Lung Excursion:: Normal
Abdomen:: Nontender and Soft
Bowel Sounds:: Normal
Extremity Edema:: None: Bilateral:
Carvalho Catheter: No
[2024-08-22 11:23] VITALS: BP 116/65
[2024-08-22] MEDS: HYDROPHOR TOPICAL (12:04)
--- NOTE | 2024-08-22 14:06 | PTCARENOTE ---
Discussed CHF diagnosis w/ pt and pt's spouse. Pt stated that he had the heart failure booklet. Pt given heart failure instructions on discharge.
== END 2024-08-22 14:10 | disposition home health service (06) | DRG 291 ==
LOC: IVU 00:58
PROVIDERS: Clinical Nurse Specialist Family Health; Internal Medicine; ADMITTING PHYSICIAN Internal Medicine; ATTENDING PHYSICIAN Hospitalist; CONSULT PHYSICIAN Internal Medicine Nephrology; EMERGENCY PHYSICIAN Student in an Organized Health Care Education/Training Program; FAMILY PHYSICIAN Internal Medicine; OTHER PHYSICIAN Internal Medicine Cardiovascular Disease
PROC: B24BZZ4 Ultrasonography of Heart with Aorta, Transesophageal (ICD-10-PCS; 2024-08-20)
PROC: 5A2204Z Restoration of Cardiac Rhythm, Single (ICD-10-PCS; 2024-08-20)
DX: I13.0 Hypertensive heart and chronic kidney disease with heart failure and stage 1 through stage 4 chronic kidney disease, or unspecified chronic kidney disease (principal); I50.23 Acute on chronic systolic (congestive) heart failure; I48.92 Unspecified atrial flutter; I24.89 Other forms of acute ischemic heart disease; N17.9 Acute kidney failure, unspecified; L97.829 Non-pressure chronic ulcer of other part of left lower leg with unspecified severity; I42.8 Other cardiomyopathies; G47.33 Obstructive sleep apnea (adult) (pediatric); E78.00 Pure hypercholesterolemia, unspecified; N18.31 Chronic kidney disease, stage 3a; I25.10 Atherosclerotic heart disease of native coronary artery without angina pectoris; K21.9 Gastro-esophageal reflux disease without esophagitis; I48.91 Unspecified atrial fibrillation; E11.41 Type 2 diabetes mellitus with diabetic mononeuropathy; F10.90 Alcohol use, unspecified, uncomplicated; I70.242 Atherosclerosis of native arteries of left leg with ulceration of calf; D72.829 Elevated white blood cell count, unspecified; E66.09 Other obesity due to excess calories; E11.22 Type 2 diabetes mellitus with diabetic chronic kidney disease; E11.51 Type 2 diabetes mellitus with diabetic peripheral angiopathy without gangrene; M19.90 Unspecified osteoarthritis, unspecified site; N40.0 Benign prostatic hyperplasia without lower urinary tract symptoms; H90.3 Sensorineural hearing loss, bilateral; I95.2 Hypotension due to drugs; T46.1X5A Adverse effect of calcium-channel blockers, initial encounter; Y92.239 Unspecified place in hospital as the place of occurrence of the external cause; Z96.643 Presence of artificial hip joint, bilateral; Z96.652 Presence of left artificial knee joint; Z79.82 Long term (current) use of aspirin; Z79.890 Hormone replacement therapy; Z79.891 Long term (current) use of opiate analgesic; Z97.4 Presence of external hearing-aid; Z98.1 Arthrodesis status; Z82.0 Family history of epilepsy and other diseases of the nervous system; Z82.49 Family history of ischemic heart disease and other diseases of the circulatory system; Z88.1 Allergy status to other antibiotic agents; Z88.5 Allergy status to narcotic agent; Z88.0 Allergy status to penicillin; Z88.2 Allergy status to sulfonamides; Z88.8 Allergy status to other drugs, medicaments and biological substances; Z91.018 Allergy to other foods; Z68.30 Body mass index [BMI] 30.0-30.9, adult; Z87.828 Personal history of other (healed) physical injury and trauma; Z89.432 Acquired absence of left foot; Z82.3 Family history of stroke; Z79.84 Long term (current) use of oral hypoglycemic drugs
CPT/HCPCS: 71045; 76770; 80053; 80061; 81003; 81015; 82570; 83735; 83880; 84300; 84443; 84484; 85025; 85610; 85730; 92960; 93005; 93306; 93312; 93320; 93325; 96365; 96366; 96375; 97116; 97163; 97530; 99291

== ENCOUNTER → 2024-08-28 10:40 | Outpatient (REF) | payer MEDICARE, BC, SELFPAY ==
[2024-08-28 16:46] LABS: Blood Urea Nitrogen 40 mg/dl (9-20); Calcium 9.5 mg/dl (8.4-10.2); Carbon Dioxide 25 mmol/L (22-30); Chloride 103 mmol/L (98-107); Glucose 73 mg/dl (70-99); Potassium 4.9 mmol/L (3.5-5.1); Sodium 136 mmol/L (135-145); eGFR 40.25
== END ==
LOC: OLAB 10:40
PROVIDERS: ATTENDING PHYSICIAN Internal Medicine; FAMILY PHYSICIAN Internal Medicine
DX: I50.23 Acute on chronic systolic (congestive) heart failure (principal)
CPT/HCPCS: 36415; 80048

== ENCOUNTER 2024-09-30 07:44 | Outpatient (RCR) | payer MEDICARE, BC, SELFPAY | END 2024-10-20 13:35 | disposition home or self-care (01) | LOC: RPT 07:44 | PROVIDERS: ATTENDING PHYSICIAN Physician Assistant; FAMILY PHYSICIAN Internal Medicine | DX: I89.0 Lymphedema, not elsewhere classified (principal); I87.2 Venous insufficiency (chronic) (peripheral); Z73.6 Limitation of activities due to disability | CPT/HCPCS: 97162; 97530 ==

== ENCOUNTER → 2024-10-28 10:21 | Outpatient (REF) | payer MEDICARE, BC, SELFPAY ==
[2024-10-28 11:32] LABS: Hematocrit 47.5 % (39.0-52.0); Hemoglobin 15.6 g/dL (13.0-18.0); Mean Corp Hgb Conc. 32.8 g/dL (33.0-37.0); Mean Corpuscular Volume 95.2 fL (80.0-94.0); Nucleated Red Blood Cells % 0 % (-); Platelet Count 200 10^3/uL (130-400); Red Cell Dist. Width 14.2 % (11.5-14.5)
[2024-10-28 11:40] LABS: ALT (SGPT) 41 U/L (0-50); AST (SGOT) 32 U/L (17-59); Albumin 4.6 g/dl (3.5-5.0); Alkaline Phosphatase 119 U/L (38-126); Blood Urea Nitrogen 35 mg/dl (9-20); Calcium 10.1 mg/dl (8.4-10.2); Carbon Dioxide 30 mmol/L (22-30); Chloride 103 mmol/L (98-107); Glucose 101 mg/dl (70-99); INR 0.97; Magnesium 2.5 mg/dl (1.6-2.3); PT 13.4 Sec (11.4-14.6); Potassium 5.6 mmol/L (3.5-5.1); Sodium 140 mmol/L (135-145); Total Protein 7.4 g/dl (6.3-8.2); eGFR 46.77
== END ==
LOC: SDSPAT 10:21
PROVIDERS: ATTENDING PHYSICIAN Internal Medicine Cardiovascular Disease; FAMILY PHYSICIAN Internal Medicine; OTHER PHYSICIAN Internal Medicine
DX: I48.0 Paroxysmal atrial fibrillation (principal)
CPT/HCPCS: 36415; 75572; 80053; 83735; 85025; 85610; 86850; 86870; 86900; 86901; 86905; 93005; Q9967

== ENCOUNTER → 2024-11-05 11:59 | Outpatient (REF) | payer MEDICARE, BC, SELFPAY ==
[2024-11-05 15:13] LABS: Hematocrit 45.1 % (39.0-52.0); Hemoglobin 15.0 g/dL (13.0-18.0); Mean Corp Hgb Conc. 33.3 g/dL (33.0-37.0); Mean Corpuscular Volume 93.0 fL (80.0-94.0); Nucleated Red Blood Cells % 0 % (-); Platelet Count 218 10^3/uL (130-400); Red Cell Dist. Width 14.0 % (11.5-14.5)
[2024-11-05 15:21] LABS: ALT (SGPT) 41 U/L (0-50); AST (SGOT) 36 U/L (17-59); Albumin 4.4 g/dl (3.5-5.0); Alkaline Phosphatase 107 U/L (38-126); Blood Urea Nitrogen 34 mg/dl (9-20); Calcium 9.6 mg/dl (8.4-10.2); Carbon Dioxide 25 mmol/L (22-30); Chloride 101 mmol/L (98-107); Glucose 86 mg/dl (70-99); Magnesium 2.5 mg/dl (1.6-2.3); Potassium 5.1 mmol/L (3.5-5.1); Sodium 133 mmol/L (135-145); Total Protein 6.8 g/dl (6.3-8.2); eGFR 50.81
[2024-11-05 15:26] LABS: INR 1.03; PT 14.1 Sec (11.4-14.6)
== END ==
LOC: HWLAB 11:59
PROVIDERS: ATTENDING PHYSICIAN Internal Medicine Cardiovascular Disease; FAMILY PHYSICIAN Internal Medicine
DX: Z01.818 Encounter for other preprocedural examination (principal); I50.9 Heart failure, unspecified; N17.9 Acute kidney failure, unspecified; I48.3 Typical atrial flutter; I11.0 Hypertensive heart disease with heart failure
CPT/HCPCS: 36415; 80053; 83735; 85025; 85610

== ENCOUNTER 2024-11-13 05:52 | Day surgery (SDC) | payer MEDICARE, BC, SELFPAY ==
[2024-10-28 11:02] VITALS: BMI 31.3
[2024-11-13] VITALS (13 sets, daily range): BP systolic 86–120; BP diastolic 56–73
--- NOTE | 2024-11-13 08:06 | ITS.CL.ABL ---
Policy Cancellation Clerk - Ablation
Ablation
Procedure Report:
Primary Professional Driver: Dr Rodríguez Brito
Procedure Date: 11/13/2024
Patient History:
Patient is a pleasant 79-year-old male with a past medical history significant for nonischemic cardiomyopathy with improved EF (44% 2024), atrial fibrillation with possible atrial flutter, hypertension, hyperlipidemia, PAD, GERD, sleep apnea.
See H&P for complete details.
Indication:
Symptomatic paroxysmal atrial fibrillation
Heart failure with reduced ejection fraction
Arrhythmia Specific History:
Prior Medical Therapies for Rate and Rhythm Control:
X Beta-tulio
[ ] Calcium channel-tulio
X Amiodarone
[ ] Dronederone
[ ] Sotalol
[ ] Flecainide
[ ] Dofetilide
X Options limited by bradycardia
X Options limited by comorbid renal disease
Prior Procedural Therapies for AF/AFL:
X Cardioversion
[ ] Pulmonary Vein Isolation
[ ] Posterior Wall Isolation
[ ] Additional lines (Specify)
[ ] Surgical Srivastava-MAZE or PVI (Specify)
Procedure Performed:
X AF ablation procedure (10810) -- includes LA/CS pacing, trans-septal, 3D mapping, + ICE
[ ] +IV drug (52073)
X +Other Arrhythmia (37721) - CTI Ablation for typical atrial flutter
X +Other AF Line/ablation (60542) -- floor line, roof line, posterior wall isolation
Risks and expected recovery has been explained in detail. Alternative options have been explored, and in a shared-decision making fashion we have decided that this was the most appropriate procedure.
Method
NPO status confirmed. Grounding pad applied. Defibrillator pads applied. Continuous surface ECG, pulse oximetry, and blood pressure were monitored. Procedure was performed under general anesthesia, with anesthesia services.
Both groins were clipped, prepped with Chloraprep, and draped in sterile fashion. Time out was called. Local anesthesia administered. The right femoral vein was accessed for catheter placement, using ultrasound guidance (images saved to record),
micro-puncture needle/wire, and modified seldinger technique. 3 sheaths were placed. The following catheters were used:
[ ] Tacticath SE (D/F Curve) ablation catheter
X Viewflex 9Fr ICE catheter
X Inquiry decapolar 6Fr diagnostic catheter
[ ] CRD Hex 6Fr
X Agilis 11.5 Fr Steerable Sheath
X Sphere-9 Ablation catheter
[ ] Advisor HD Grid Mapping Catheter, SE
[ ] Acuson AcuNav 8 Fr ICE catheter
[ ] Other: [ ]
A multipolar catheter were advanced to the coronary sinus. Intracardiac ultrasound (ICE) was carefully advanced into the right atrium to guide sheath placement over a J-wire, catheter placement, guide trans-septal puncture, identify potential
complications, identify anatomic structures and ensure proper contact between ablation catheter and tissue. A trace basal LV pericardial effusion was noted at the initiation of procedure. This remained unchanged throughout procedure and at case
completion. The patient entered the room in sinus rhythm.
Heparin was given to achieve and maintain a target ACT of 300-400 seconds throughout the procedure.
Trans-septal access was performed under ICE guidance. The trans-septal puncture was performed with a SafeSept wire through a Brockenbrough needle assembly through the steerable sheath. The wire was visualized as it entered the LSPV and system
advanced under ICE guidance and fluoroscopy into the LA. The Brockenbrough needle assembly, SafeSept wire and sheath dilator were removed under negative pressure. LA pressure was measured and recorded.
ICE and 3D mapping was performed to identify relevant cardiac structures. A careful 3D map was created to assess for regions of low-voltage and abnormal electrogram signals using Sphere-9 catheter. Additional mapping was performed as outlined below.
Prior to ablation, glycopyrrolate was provided. Sphere 9 catheter was advanced into the left atrium. Electroanatomic mapping was performed using the Sphere 9 catheter. Pulmonary vein isolation was performed using pulsed field ablation in a
circumferential manner. Contact was visualized via EAM, ICE, fluoroscopy, and EGM signals.
After accomplishing pulmonary venous isolation, mapping identified additional areas likely to be extra PV contributors to atrial fibrillation. These areas demonstrated patchy low voltage as well as complex fractionated electrograms. These areas can
be sites for the formation of rotors which can drive and maintain atrial fibrillation. These areas are known to be significant contributors to initiation and perpetuation of atrial fibrillation.
Additional energy applications/additional ablation sets targeted extra PV contributors to atrial fibrillation.
Targets for additional PFA ablation included: LA posterior wall targeted with pulsed electric field energy isolating the posterior wall of the left atrium. Posterior wall isolation was performed by aforementioned methods using Sphere-9 catheter.
After ablation of the posterior wall, targets remained including:
- Inferior LA floor
- Anterior LA roof
- The ridge of tissue between the left atrial appendage and the left sided pulmonary veins (Ligament of Bogdan)
These areas were ablated using pulsed electric field energy eliminating the extra PV contributors to atrial fibrillation.
Following completion of ablation lesions, a post-ablation voltage/activation map was performed in sinus rhythm. Entrance and exit block were confirmed for each vein and the posterior wall.
Next, atrial Exer similar was performed for induction of atrial flutter. Atrial flutter was induced with a tachycardia cycle length of 290 ms. This appeared to be concentrically activated. Electroanatomic mapping of the left atrium demonstrated
the LA was passive. Manifest entrainment with a long PPI minus TCL was noted from the left atrium. The Sphere�9 catheter was removed from the LA. LA pressure recorded. Sheath was retracted from the LA into RA. Three-dimensional electroanatomic
mapping was utilized with careful attention to anatomic landmarks, including the coronary sinus, IVC-RA and SVC-RA junction, tricuspid valve annulus, and region of the His bundle electrogram. Tachycardia was characterized by activation patterns in
the CS catheters. Entrainment maneuvers established cavotricuspid isthmus-dependence. An ablation line was created from the tricuspid annulus to the IVC in the 6:00 position (LE clock/caudal EAM projection). A combination of RF and PF was used
with careful monitoring of impedance, AV conduction, power, and temperature. The patient's atrial flutter terminated during ablation. Ablation continued until a line was complete from the tricuspid valve annulus to the IVC-RA junction during CS
pacing. Clockwise and counterclockwise trans-isthmus times were determined, and RA activation patterns confirmed bidirectional block. Following waiting period, bidirectional block persisted. Electrophysiology study was performed and no additional
arrhythmias were induced. Atrial flutter was not inducible.
Post-ablation intracardiac echo evaluation was consistent with pre-ablation with no changes and no pericardial effusion and there is no left atrial thrombus or left ventricle thrombus seen. Hemostasis was obtained with figure of 8 stitch for each
groin and with manual pressure. Protamine was used for reversal.
Estimated Blood Loss
5 mL
Complications
None
Fluoroscopy: 2.8 minutes; 9.5 mGy; DAP 1.14
LA Pressure: Pre 10 mmHg, post 9 mmHg
Baseline Intervals:
Rhythm: SB
MI: 166 ms
QRS: 106 ms
QT: 535 ms
Post-Procedure Intervals:
MI: 177 ms
QRS: 101 ms
QT: 489 ms
AVWB: 490 ms
AVNERP: 600/390 ms
AERP: 600/300 ms
Recommendations
- Bedrest with straight-leg precautions as ordered
- Anticipate same day discharge if patient meeting clinical metrics
- Resume home medications as indicated
- Ok to resume anticoagulation tonight if patient and groin sites stable
- PPI daily for 30 days
- Plan for follow-up in office as scheduled
- Reduce amiodarone to 100 mg daily with plan for discontinuation at 3 month office visit
James Carlos, , FAC, [facility]
Clinical Cardiac Agricultural Pilot
cc:
Dr Rodríguez Brito; Dr Micah Bennett
[2024-11-13 09:31] LABS: ACT-LR - POC 361 Seconds (116-155)
[2024-11-13 09:52] LABS: ACT-LR - POC 358 Seconds (116-155)
[2024-11-13 10:09] LABS: ACT-LR - POC 397 Seconds (116-155)
[2024-11-13 10:28] LABS: ACT-LR - POC 382 Seconds (116-155)
[2024-11-13 10:42] LABS: ACT-LR - POC > 397 Seconds (116-155)
[2024-11-13 10:42] LABS: ACT-LR - POC > 397 Seconds (116-155)
[2024-11-13 10:46] LABS: ACT-LR - POC 173 Seconds (116-155)
--- NOTE | 2024-11-13 14:59 | W.PN.UPDATE ---
Update Note
Progress Note Update
79 yo WM s/p PVI (Same day). He denies cp, sob, lamberto diet, voiding, R fem site c/d/i no HT, soft, EKG SR. He will resume Eliquis tonight. We will decrease amiodarone to 100mg daily and continue metoprolol. Activity restrictions reviewed. He will f/u
Dr. Carlos in 3 mo and continue cardiac care with Dr. Brito. He is for d/c home after 345p if groin stable.
== END 2024-11-13 15:21 | disposition home or self-care (01) ==
LOC: CATH 05:52
PROVIDERS: ATTENDING PHYSICIAN Internal Medicine Cardiovascular Disease; FAMILY PHYSICIAN Internal Medicine; REFERRING PHYSICIAN Internal Medicine
DX: I48.0 Paroxysmal atrial fibrillation (principal); I48.3 Typical atrial flutter; I13.0 Hypertensive heart and chronic kidney disease with heart failure and stage 1 through stage 4 chronic kidney disease, or unspecified chronic kidney disease; N18.30 Chronic kidney disease, stage 3 unspecified; I42.8 Other cardiomyopathies; I49.8 Other specified cardiac arrhythmias; I50.22 Chronic systolic (congestive) heart failure; E78.5 Hyperlipidemia, unspecified; I73.9 Peripheral vascular disease, unspecified; K21.9 Gastro-esophageal reflux disease without esophagitis; Z87.442 Personal history of urinary calculi; I27.20 Pulmonary hypertension, unspecified; I87.2 Venous insufficiency (chronic) (peripheral); E66.9 Obesity, unspecified; Z68.31 Body mass index [BMI] 31.0-31.9, adult; E87.1 Hypo-osmolality and hyponatremia; H91.93 Unspecified hearing loss, bilateral; I48.92 Unspecified atrial flutter; I25.10 Atherosclerotic heart disease of native coronary artery without angina pectoris; G47.33 Obstructive sleep apnea (adult) (pediatric); Z79.890 Hormone replacement therapy; Z79.01 Long term (current) use of anticoagulants; Z88.0 Allergy status to penicillin; Z88.1 Allergy status to other antibiotic agents; N40.0 Benign prostatic hyperplasia without lower urinary tract symptoms; M19.90 Unspecified osteoarthritis, unspecified site; Z98.890 Other specified postprocedural states; Z96.652 Presence of left artificial knee joint; Z88.5 Allergy status to narcotic agent
CPT/HCPCS: C1733; C1894 ×2; C1730; C1766; 85347; 86850; 86870; 86900; 86901; 86920; 86922; 93005; 93655; 93656; 93657

== ENCOUNTER → 2024-11-24 04:00 | Outpatient (REF) | payer MEDICARE, BC, SELFPAY | LOC: DHSLP 04:00 | PROVIDERS: ATTENDING PHYSICIAN Internal Medicine Critical Care Medicine; FAMILY PHYSICIAN Internal Medicine | DX: G47.33 Obstructive sleep apnea (adult) (pediatric) (principal) | CPT/HCPCS: 95800 ==

== ENCOUNTER → 2024-12-07 15:20 | Outpatient (REF) | payer MEDICARE, BC, SELFPAY | LOC: RAD 15:20 | PROVIDERS: ATTENDING PHYSICIAN Physician Assistant; FAMILY PHYSICIAN Internal Medicine | DX: I73.9 Peripheral vascular disease, unspecified (principal) | CPT/HCPCS: 93922; 93925 ==

== ENCOUNTER 2025-03-03 12:41 | Day surgery (SDC) | payer MEDICARE, BC, SELFPAY ==
[2025-03-03 12:26] VITALS: BMI 29.7
[2025-03-03 12:29] VITALS: BMI 29.7
[2025-03-03 12:30] VITALS: BP 118/64
[2025-03-03] MEDS: NORMOSOL-R/PLASMALYTE-A 1000 IV (12:47)
[2025-03-03] MEDS: VANCOCIN 530 MG IV (13:16)
[2025-03-03 15:50] VITALS: BP 110/64
[2025-03-03 16:00] VITALS: BP 136/62
[2025-03-03 16:15] VITALS: BP 118/57
[2025-03-03 16:30] VITALS: BP 117/55
[2025-03-03 16:45] VITALS: BP 110/65
== END 2025-03-03 17:22 | disposition home or self-care (01) ==
LOC: SDS 12:41
PROVIDERS: ATTENDING PHYSICIAN Podiatrist Foot & Ankle Surgery
DX: M21.6X2 Other acquired deformities of left foot (principal)
CPT/HCPCS: 28113; 73620; 88304; 88311